=== PATIENT | female | born 1980 | race Caucasian/White ===

== ENCOUNTER 2023-04-09 09:48 | Outpatient (OUT) | payer OTHER, SELFPAY ==
[2023-04-09 10:10] LABS: Basophils Percent Auto 0.5 % (0.2-2.0); Eosinophils Absolute Auto 0.1 10^3/uL (0.0-0.7); Eosinophils Percent Auto 1.3 % (0.9-7.0); Hematocrit 40.9 % (36.0-48.0); Hemoglobin 13.4 g/dL (12.0-16.0); Lymphocytes Absolute Auto 1.1 10^3/uL (1.2-3.8); Mean Corpuscular HGB Conc 32.8 g/dL (29.9-35.2); Mean Corpuscular Volume 91.7 fL (81.0-99.0); Mean Platelet Volume 9.8 fL (9.5-13.5); Monocytes Absolute Auto 0.3 10^3/uL (0.3-0.8); Monocytes Percent Auto 6.6 % (1.7-12.0); Neutrophils Absolute Auto 2.3 10^3/uL (1.4-6.5); Neutrophils Percent Auto 61.6 % (43.0-75.0); Platelet Count 225 10^3/uL (150-450); Red Blood Count 4.46 10^6/uL (4.20-5.40); Red Cell Distribution Width 11.9 % (11.0-15.0); White Blood Count 3.8 10^3/uL (4.0-11.0)
[2023-04-09 10:27] LABS: Erythrocyte Sedimentation Rate 16 mm/hr (<=20)
[2023-04-09 10:41] LABS: Percent Iron Saturation 26.2 %
[2023-04-09 10:50] LABS: Alanine Aminotransferase 23 U/L (14-59); Albumin Globulin Ratio 12.3; Albumin Level 3.7 g/dL (3.4-5.0); Alkaline Phosphatase 40 U/L (46-116); Anion Gap 14.3; Aspartate Amino Transferase 20 U/L (15-37); BUN Creatinine Ratio 12.2; Bilirubin Total 0.4 mg/dL (0.2-1.0); Calcium 8.8 mg/dL (8.5-10.1); Carbon Dioxide 26.7 mmol/L (21.0-32.0); Chloride 104 mmol/L (98-107); Chol HDL Ratio 3.4; Cholesterol 197 mg/dL (<=200); Estimated GFR (African America >60 (>=60); Estimated GFR (Non-African Ame >60 (>=60); Globulin 0.3 g/dL; Glucose 87 mg/dL (74-106); HDL Cholesterol 58 mg/dL (40-60); LDL Cholesterol Calculated 131.2 mg/dL; Sodium 141 mmol/L (136-145); TSH W/ REFLEX FT4 0.203 (0.358-3.740); Triglycerides 39 mg/dL (<=150); Uric Acid 3.7 mg/dL (2.6-6.0); VLDL CHOLESTEROL 7.8 mg/dL
[2023-04-09 12:04] LABS: C Reactive Protein <0.50 mg/dL (<=0.50)
[2023-04-09 12:10] LABS: Free T4 1.16 ng/dL (0.76-1.46)
[2023-04-10 06:08] LABS: Antistreptolysin O Ab 213.7 IU/mL (0.0-200.0); Rheumatoid Factor (RF) <10.0 IU/mL (<14.0)
[2023-04-10 12:08] LABS: Anti-CCP Ab, IgG/IgA 7 units (0-19)
[2023-04-10 13:07] LABS: Antinuclear Antibodies, IFA Negative (.)
== END 2023-04-09 09:49 | disposition home or self-care (01) ==
LOC: LAB 09:49
PROVIDERS: PCP Nurse Practitioner Family; Visit Provider Nurse Practitioner Family
DX: E03.9 Hypothyroidism, unspecified (principal); R53.82 Chronic fatigue, unspecified; M25.50 Pain in unspecified joint; R06.02 Shortness of breath; Z13.220 Encounter for screening for lipoid disorders; R00.2 Palpitations; R42 Dizziness and giddiness
CPT/HCPCS: 36415; 80053; 80061; 82306; 83540; 83550; 84439; 84443; 84550; 85025; 85652; 86038; 86060; 86140; 86200; 86430; 86431

== ENCOUNTER 2023-06-11 16:30 | Outpatient (OUT) | payer OTHER, SELFPAY ==
--- OUTSIDE RECORDS SUMMARY | 2023-06-11 16:54 | XMS_ITS | CCD ---
Author Name Unknown Address [address] [facility] [address] [place] [address] Organization [facility] Care Team Providers Care Stationary Engineer Apprentice Name Role Phone House DO, Sr Simeon Casas Primary Care Provider [phone] Unavailable Primary Care Physician Unavailab le House DO, Sr Simeon Casas Primary Care Provider [phone] Wong Cade Primary Care Physician Unavai lable [place] DO, Sr Simeon Casas Primary Care Provider [phone] ROWENA WEI Referring Unavailabl e HOUSE, SR SIMEON Casas Primary Care Unavailable JAQUI OSUNA Attending Unavail able JAQUI OSUNA Admitting Unavail able HOUSE, SR SIMEON Casas Primary Care Unavailable WONG CADE Referring Unavailable HOUSE, SR SIMEON Casas Primary Care Unavailable ROWENA WEI Referring Unavailabl e HOUSE, SR SIMEON Casas Primary Care Unavailable Tammie Hawk Unavailable Smiley Lopez Unavailable Allergies Allergy Classification Reported Allergen(s) Allergy Type Date of Onset Reaction(s) Facility Penicillins (antibiotic) (7 sources) Penicillins Drug Allergy 1 [facility] (2 sources) Penicillins Propensity to adverse reactions to drug 1 [facility] (3 sources) Penicillin G Drug Allergy throat swelling [employer] Other Medications Current Medications Medication Drug Class(es) Dates Sig (Normalized) Sig (Original) acetaminophen 325 mg / oxyCODONE hydrochloride 5 mg oral tablet (1 source) Opioid Agonist Start: 11-12-2021 End: 11-15-2021 oxyCODONE-acetamin ophen (PERCOCET) 5-325 MG per tablet Indications: Post-op pain Take 1 tablet by mouth every 6 hours as needed for Pain for up to 3 days. Intended supply: 3 days. Take lowest dose possible to manage pain 12 tablet 0 11/12/2021 11/15/2021 Active calcium chloride 0.0014 meq/ml / potassium chloride 0.004 meq/ml / sodium chloride 0.103 meq/ml / sodium lactate 0.028 meq/ml injectable solution (1 source) Start: 11-12-2021 lactated ringers infusion ketorolac tromethamine 10 mg oral tablet (1 source) Nonsteroidal Anti-inflammatory Drug, Cyclooxygenase Inhibitor Start: 11-12-2021 End: 11-12-2022 take 1 tablet by mouth every six hours as needed for pain ketorolac (TORADOL) 10 MG tablet Take 1 tablet by mouth every 6 hours as needed for Pain 20 tablet 0 11/12/2021 11/12/2022 Active levothyroxine sodium 0.125 mg oral tablet (13 sources) l-Thyroxine Start: 11-21-2020 take 1 tablet by mouth once daily levothyroxine (SYNTHROID) 125 MCG tablet Indications: Hypothyroidism, unspecified type Take 1 tablet by mouth daily 90 tablet 0 06/05/2021 Active Start: 09-04-2020 levothyroxine 175 mcg capsule 09/04/2020 take 6/wk skip Sun with water only on empty stomach, no other foods,drinks,or meds for 2hr before or after CONCEPCIÓN-1 MYLAN BRAND Start: 07-17-2020 take 1 tablet by moncho th once daily levothyroxine (SYNTHROID) 175 MCG tablet TAKE 1 TABLET BY MOUTH EVERY DAY 0 07/17/2020 Active take 1 tablet by moncho th once daily in the morning Levothyroxine Sodium 100 MCG 1 tablet in the morning on an empty stomach Orally Once a day for 90 days Active Levothyroxine So dium Active take 1 capsule by mo [facility] once daily levothyroxine 175 mcg capsule take 1 capsule (175 mcg) by oral route once daily medroxyPROGESTERone acetate 5 mg oral tablet (2 sources) Progestin Start: 08-29-2020 take 16-25 tablets by mouth once daily medroxyPROGESTERone (PROVERA) 5 MG tablet Indications: Irregular menses Take 1 tablet by mouth daily Days 16-25 of each cycle 10 tablet 12 08/29/2020 Active 2 ml ondansetron 2 mg/ml injection (1 source) Serotonin-3 Receptor Antagonist Start: 11-12-2021 ondansetron (ZOFRAN) injection 4 mg 5 ml sodium chloride 9 mg/ml injection (6 sources) Start: 11-12-2021 take 1 dose intravenously twice daily 5-40 mL, IntraVENous, EVERY 12 HOURS SCHEDULED (2 times per day), First dose on Fri11/12/21 at 2100, Until Discontinued For Line Patency: Peripheral IV = 5 mL; Midline or Central Line = 10 mL/lumen. &n bsp;If following IV push medication, administer flush at same rate as the IV push. Flush volume is determined by type of infusion therapy being given. For non-viscous solutions use: Peripheral IV = 5 mL Midline or Central Line = 10 mL/lumen F or viscous solutions (i.e. blood components, parenteral nutrition, contrast media, or after obtaining blood sample) use: Peripheral IV = 10 mL Midline or Central Line = 20 mL/lumen PACU only Start: 11-12-2021 IntraVENous, a t 5-250 mL/hr, PRN, if patient receiving piggyback infusions and maintenance fluids are not ordered OR KVO fluids to protect IV site / prevent frequent line interruptions/ long duration, Starting on Fri11/12/21 at 1331 For piggyback infusion, administer at same rate as piggyback for a total of 25 mL. Enter 25 mL into dose field and piggyback rate into rate field of order. If piggyback is infusing at a rate less than 100 mL/hr, enter 25 mL into dose field and 100 mL/hr into rate field of order. For KVO fluids, enter rate of 20 mL/hr or less into rate field of order. PACU only Start: 11-12-2021 take 5-40 mL intrave nously once as needed 5-40 mL, IntraVENous, PRN, Starting on Fri11/12/21 at 1331, Until Discontinued, Line Care, After every IV line use For Line Patency: Peripheral IV = 5 mL; Midline or Central Line = 10 mL/lumen. If following IV push medication, administer flush at same rate as the IV push. Flush volume is determined by type of infusion therapy being given. For non-viscous solutions use: Peripheral IV = 5 mL Midline or Central Line = 10 mL/lumen For viscous solutions (i.e. blood components, parenteral nutrition, contrast media, or after obtaining blood sample) use: Peripheral IV = 10 mL Midline or Central Line = 20 mL/lumen PACU only Start: 11-12-2021 0.9 % sodium c hloride infusion Start: 11-12-2021 sodium chlorid e flush 0.9 % injection 5-40 mL Completed/Discontinued Medications Medication Drug Class(es) Dates Sig (Normalized) Sig (Original) acetaminophen 325 mg oral tablet (1 source) Start: 11-12-2021 End: 11-12-2021 acetaminophen (TYLENOL) tablet 650 mg acetaminophen 325 mg / HYDROcodone bitartrate 5 mg oral tablet (2 sources) Opioid Agonist Start: 11-12-2021 End: 11-12-2021 HYDROcodone-acetamin ophen (NORCO) 5-325 MG per tablet 2 tablet Start: 11-12-2021 End: 11-12-2021 HYDROcodone-acetaminophen (N ORCO) 5-325 MG per tablet Indications: Post-op pain Take 1 tablet by mouth every 6 hours as needed for Pain for up to 5 days. Intended supply: 5 days. Take lowest dose possible to manage pain 10 tablet 0 11/12/2021 11/12/2021 Discontinued (Stop Taking at Discharge) ceFAZolin (ANCEF) 2000 mg in dextrose 5 % 100 mL IVPB (1 source) Start: 11-12-2021 End: 11-12-2021 ceFAZolin (ANCEF) 2000 mg in dextrose 5 % 100 mL IVPB dimenhyDRINATE 50 mg oral tablet (1 source) Start: 11-12-2021 End: 11-12-2021 dimenhyDRINATE (DRAMAMINE) tablet 50 mg drospirenone 4 mg oral tablet (2 sources) Progestin Start: 11-29-2020 End: 11-12-2021 take 1 tablet by mouth once daily Drospirenone (SLYND) 4 MG TABS Indications: Menorrhagia with irregular cycle Take 1 tablet by mouth daily 84 tablet 3 11/29/2020 11/12/2021 Discontinued (Stop Taking at Discharge) 0.4 ml enoxaparin sodium 100 mg/ml prefilled syringe (1 source) Low Molecular Weight Heparin Start: 11-12-2021 End: 11-12-2021 enoxaparin (LOVENOX) injection 40 mg 2 ml fentaNYL 0.05 mg/ml injection (1 source) Opioid Agonist Start: 11-12-2021 End: 11-12-2021 50 mcg, IntraVENous, EVERY 5 MIN PRN, 2 doses, Starting on Fri11/12/21 at 1331, Until Discontinued, Pain Moderate (4-6), Pain Severe (7-10) For Phase I. If Phase II oral narcotics have been administered in the last 60 minutes, do not administer IV narcotics unless specifically approved by provider. PACU only oxyCODONE hydrochloride 5 mg oral tablet (1 source) Opioid Agonist Start: 11-12-2021 End: 11-12-2021 oxyCODONE (ROXICODONE) immediate release tablet 5 mg phenazopyridine hydrochloride 100 mg oral tablet (1 source) Start: 11-12-2021 End: 11-12-2021 phenazopyridine (PYRIDIUM) tablet 200 mg Start: 11-12-2021 End: 11-12-2021 phenazopyridine (PYRIDIUM) t ablet 200 mg Problems Active Problems Problem Classification Problem Date Documented Date Episodic/Chronic Cardiac dysrhythmias (1 source) Palpitations Episodic Conditions associated with dizziness or vertigo (1 source) Dizziness and giddiness Episodic Malaise and fatigue (3 sources) Fatigue; Translations: [Chronic fatigue, unspecified] Chronic Menstrual disorders (3 sources) Irregular periods; Translations: [Irregular menstruation, unspecified] Chronic Mood disorders (2 sources) Major depressive affective disorder, single episode, unspecified Chronic Other female genital disorders (1 source) Pelvic congestion syndrome; Translations: [Other specified conditions associated with female genital organs and menstrual cycle] Episodic Other lower respiratory disease (1 source) Shortness of breath Episodic Other nervous system disorders (2 sources) Postoperative pain ; Translations: [Other acute postprocedural pain] Onset: 11-12-2021 Episodic Other non-traumatic joint disorders (1 source) Pain in unspecified joint Episodic Other screening for suspected conditions (not mental disorders or infectious disease) (4 sources) Other specified abnormal findings of blood chemistry; Translations: [Encounter for screening for lipoid disorders] Onset: 08-16-2020 Episodic Ovarian cyst (1 source) Complex cyst of left ovary; Translations: [Other ovarian cyst, left side] Episodic Residual codes; unclassified (1 source) Family history of diseases of the skin and subcutaneous tissue Episodic Thyroid disorders (16 sources) Hyperthyroidism; Translations: [Thyrotoxicosis without mention of goiter or other cause, and without mention of thyrotoxic crisis or storm] Onset: 08-29-2020 08-29-2020 Chronic Thyroid disorders (4 sources) Disorder of thyroid gland; Translations: [Disorder of thyroid, unspecified] Onset: 08-16-2020 Episodic Past or Other Problems Problem Classification Problem Date Documented Da te Episodic/Chronic Unclassified (1 source) Cough R05.9 Viral infection (1 source) COVID-19 Results Test Name Value Interpretation Reference Range Facility Quick Strep[facility] 03-21-2022 S. pyogenes Org specific cx Ql (Throat) Negative [employer] Other Quick Strep [employer] Other SARS-CoV-2 (COVID-19) RNA NA A+probe Ql (Resp)on 03-21-2022 SARS-CoV-2 (COVID-19) RNA ANDREA+probe Ql (Unsp spec) Positive [employer] Other HCG, ,Urineon 11-12 Beta HCG ( test) Ql (U) Negative Normal NEG [facility] Comment on above: Result Comment: Spec imens with hCG levels near the threshold of the test (25 mIU/mL) may give a negative or indeterminate result. In such cases, another test should be performed with a new specimen in 48-72 hours. If early is suspected clinically in this setting, correlation with quantitative serum b-hCG level is suggested. [facility] use [facility] for this test. This has not been cleared or approved by the U.S. Food and Drug Administration. The FDA has determined that such clearance is not necessary. Performed By: #### U HCG #### [facility] [address] [place], [place] [id number] Green Building Design Specialist: Imtiaz Monet MD Hemoglobin and Hematocriton 11-12-2021 Hematocrit (Bld) [Volume fraction] 37.6 % 36.3 - 47.1 % [facility] Hemoglobin (Bld) [Mass/Vol] 12.5 g/dL 11.9 - 15.1 g/dL [facility] Hgb/Hcton 11-12-2021 Hematocrit (Bld) [Volume fraction] 37.6 % Normal 36.3-47.1 [facility] Comment on above: Performed By: #### H H #### [facility] [address] [place], [place] [id number] Green Building Design Specialist: Imtiaz Monet MD Hemoglobin (Bld) [Mass/Vol] 12.5 g/dL Normal 11.9-15.1 [facility] Comment on above: Performed By: #### H H #### [facility] [address] [place], [place] [id number] Green Building Design Specialist: Imtiaz Monet MD , Urineon 2 Beta HCG ( test) Ql (U) Negative NEGATIVE [facility] Comment on above: Specimens with hCG l evels near the threshold of the test (25 mIU/mL) may give a negative or indeterminate result. In such cases, another test should be performed with a new specimen in 48-72 hours. If early is suspected clinically in this setting, correlation with quantitative serum b-hCG level is suggested. [facility] use of plasma for this test. This has not been cleared or approved by the U.S. Food and Drug Administration. The FDA has determined that such clearance is not necessary. [facility] Surgical Pathologyon 022 Surgical Pathology (NOTE) -- Diagnosis -- UTERUS, CERVIX, BILATERAL FALLOPIAN TUBES, HYSTERECTOMY AND BILATERAL SALPINGECTOMY: -ADENOMYOSIS. -WEAKLY PROLIFERATIVE ENDOMETRIUM. -BENIGN CERVIX. -BENIGN RIGHT AND LEFT FALLOPIAN TUBES WITH SMALL BENIGN PARATUBAL CYST OF RIGHT FALLOPIAN TUBE. Imtiaz Monet M.D. Electronically Signed Out 11/14/2021 Clinical Information Pre-op Diagnosis: PELVIC CONGESTION SYNDROME, MENORRHAGIA, DYSMENORRHEA Operative Findings: CERVIX, UTERUS, BILATERAL FALLOPIAN TUBES Operation Performed: HYSTERECTOMY VAGINAL LAPAROSCOPIC ROBOTIC ASSISTED, POSSIBLE, BSO, POSSIBLE LAP COLPOPEXY Source of Specimen A: CERVIX, UTERUS, BILATERAL FALLOPIAN TUBES Gross Description CRISTELA SANCHEZ, CERVIX, UTERUS, BILATERAL FALLOPIAN TUBES 138.2 gram uterus and cervix (10.0 cm cervix-fundus x 6.0 cm cornu-cornu x 4.5 cm anterior-posterior ) with attached bilateral fimbriated fallopian tubes (left: 6.5 cm in length x 0.7 cm in diameter, right: 6.0 cm in length x 0.9 cm in diameter). Uterine serosa is woody-pink, hyperemic and smooth with thin fibrous adhesions at the fundus (anterior = blue and posterior = black). There is a 3.0 x 2.9 cm woody, lobulated ectocervix that surrounds a 1.8 cm slit-like os. The specimen is bivalved to reveal a 4.5 x 3.0 cm endometrial cavity. The cavity is lined by a woody-pink, slightly hyperemic and flat mucosa that averages 0.1 cm in thickness. The myometrium is woody-pink and rubbery. The cervix is lined by a woody-pink, corrugated mucosa. Sectioning of the cervix reveals woody, rubbery cut surfaces with multiple nabothian cysts. These cysts measure up to 0.4 cm and contain clear to cloudy mucoid material. Sectioning of the fallopian tubes reveals unremarkable appearing cut surfaces. Hedge Trimmer sections 11c as follows: 1 anterior endomyometrium, 2 posteror endomyometrium, 3 sales representative girls[employer] apparel sections of markedly vascularized myometrium, 4 anterior cervix, 5 posterior cervix, 6-8 [employer] left fallopian tube, 9-11 [employer] right fallopian tube. tm Microscopic Description Microscopic examination performed. SURGICAL PATHOLOGY CONSULTATION Patient Name: CRISTELA SANCHEZ [facility] Rec: [id number] Path Number: [id number] [facility] [employer] CONSULTING PATHOLOGISTS [facility] ANATOMIC PATHOLOGY [address] [place] [address]. [place], [place] [address] [facility] Comment on above: Performed By: #### P PPVS #### [facility] [address] [place] [address] Green Building Design Specialist: Uri Rangel MD US PELVIS COMPLETE NON-OB TR ANSABDOMINAL AND TRANSVAGINALon 07-03-2021 US PELVIS COMPLETE NON-OB TRANSABDOMINAL AND TRANSVAGINAL EXAMINATION: TRANSABDOMINAL AND TRANSVAGINAL PELVIC ULTRASOUND 07/03/2021 TECHNIQUE: Transabdominal and transvaginal pelvic ultrasound was performed. COMPARISON: Pelvic ultrasound November 29, 2020. HISTORY: ORDERING SYSTEM PROVIDED HISTORY: Pelvic congestion FINDINGS: Measurements: Uterus: 8.1 x 5.3 x 4.1 cm Endometrial stripe: 3 mm Right Ovary:Not measured. Left Ovary: Not measured. Ultrasound Findings: Uterus: Uterus demonstrates normal myometrial echotexture. Endometrial stripe: Endometrial stripe is within normal limits. Right Ovary: Not visualized. No adnexal mass. Left Ovary: Not visualized. No adnexal mass. Free Fluid: No evidence of free fluid. IMPRESSION: Unremarkable uterus and endometrium. Ovaries not visualized. RECOMMENDATIONS: Unavailable Interpreted by: Chai Hendrickson Jr., DO Signed by: Chai Hendrickson Jr., DO 07/03/21 Final result Normal [facility] Thyroxine T4on 12-06-2020 T4 [Mass/Vol] 6.9 ug/dL Normal 4.5-10.[address] [facility] Comment on above: Performed By: #### T 4 #### [address] [address] [place] [address] Green Building Design Specialist: Uri Rangel MD #### TSH #### [facility] [address] [place] [address] [employer] Building [employer] Specialist: Imtiaz Monet MD [id number] By: Wong cortez on 12-05-2020 T4 [Mass/Vol] 6.9 ug/dL 4.5 - 10.9 ug/dL [facility] [employer] Phone: [employer] Phone: TSH without ReflexOrdered By : Wong Cade on 12-05-2020 Interpretation and review of laboratory results Abnormal [employer] Phone: TSH Qn 0.12 m[IU]/L Low [facility] Phone: [facility] [employer] Phone: Thyroid Stim. Horm.on 2020 TSH Qn 0.12 m[IU]/L Low 0.30-5.00 [facility] Comment on above: Performed By: #### T 4 #### [facility] [address] [place] [address] [employer] Building [employer] Specialist: Uri Rangel MD #### TSH #### [facility] [address] [place] [address] [employer] Building Design Specialist: Imtiaz Monet MD NON OB TRANSVAGINALon US NON OB TRANSVAGINAL UTERUS:anteverted , homogeneous echo pattern ? ENDO:1.1cm in thickness ? RT. OVARY:seen, wnl ? LT. OVARY:seen, wnl ? Prominent vessels in both adnexal regions with increase in vascularity, ? Vaginal congestion ? Small amount of free fluid visualized in posterior cul-de-sac Interpreted by: Rowena Wei APRN - MARTIN Arango DO Signed by: Jaqui Arango DO 11/30/20 Final result Normal [facility] [id number] By: Wong cortez on 10-05-2020 T4 [Mass/Vol] 8.6 ug/dL 4.5 - 10.9 ug/dL [facility] Phone: [facility] [employer] Phone: TSH without ReflexOrdered By : Wong Cade on 10-05-2020 Interpretation and review of laboratory results Abnormal [facility] Phone: TSH Qn 0.01 m[IU]/L Low [facility] Phone: [facility] [employer] Phone: ALTOrdered By: Wong mccord on 08-25-2020 ALT [Catalytic activity/Vol] 12 U/L 5 - 33 U/L [employer] Phone: CA 125Ordered By: Rowena Fiore h on 08-25-2020 CA 125 15 U/mL <38 [employer] Phone: CBCOrdered By: Wong Quigley er on 08-25-2020 Hematocrit (Bld) [Volume fraction] 37.7 % 36.3 - 47.1 % [employer] Phone: Hemoglobin.gastrointest inal spec 1 Ql (Stl) 11.8 g/dL Low 11.9 - 15.1 g/dL [employer] Phone: Interpretation and review of laboratory results Abnormal [employer] Phone: MCH (RBC) [Entitic mass] 27.3 pg 25.2 - 33.5 pg [employer] Phone: MCHC (RBC) [Mass/Vol] 31.3 g/dL 28.4 - 34.8 g/dL [employer] Phone: MCV (RBC) [Entitic vol] 87.3 fL 82.6 - 102.9 fL [employer] Phone: NRBC Automated 0.0 0.0 per 100 WBC [employer] Phone: Platelet distribution width (Bld) [Ratio] 13.1 % 11.8 - 14.4 % [employer] Phone: Platelet mean volume (Bld) [Entitic vol] 9.5 fL 8.1 - 13.5 fL [employer] Phone: Platelets (Bld) [#/Vol] 260 10*3/uL [employer] Phone: RBC (Bld) [#/Vol] 4.32 10*6/uL 3.95 - 5.1 1 m/uL [employer] Phone: WBC (Bld) [#/Vol] 6.9 10*3/uL [employer] Phone: CEAOrdered By: Rowena elder 08-25-2020 CEA 1.3 ng/mL <3.9 [employer] Work Phone: Comment on above: The [place] ECLIA as say is used. Results obtained with different assay methods cannot be used interchangeably. Laboratory - Chemistry and C hemistry - challengeOrdered By: Wong Cade on 08-25-2020 T4 [Mass/Vol] 7.1 ug/dL Invalid Interpretation Code [employer] Work Phone: Laboratory - Chemistry and C hemistry - challengeon 08-25-2020 ALT [Catalytic activity/Vol] 12.0 U/L Invalid Interpretation Code [facility] T3 [Mass/Vol] 75.0 ng/dL Invalid Interpretation Code [facility] TSH Qn <0.01 L Invalid Interpretation Code [facility] Laboratory - Hematology and Cell countson 08-25-2020 Erythrocyte distribution width (RBC) [Ratio] 13.10 % Invalid Interpretation Code [facility] ESR (Bld) [Velocity] 18.0 mm/h Invalid Interpretation Code [facility] Hematocrit (Bld) [Volume fraction] 37.70 % Invalid Interpretation Code [facility] Hemoglobin (Bld) [Mass/Vol] 11.80 g/dL Invalid Interpretation Code [facility] MCH (RBC) [Entitic mass] 27.30 pg Invalid Interpretation Code [facility] MCHC (RBC) [Mass/Vol] 31.30 g/dL Invalid Interpretation Code [facility] MCV (RBC) [Entitic vol] 87.30 fL Invalid Interpretation Code [facility] Platelets (Bld) [#/Vol] 260.0 10*3/uL Invalid Interpretation Code [facility] RBC (Bld) [#/Vol] 4.320 10*6/uL Invalid Interpretation Code [facility] WBC (Bld) [#/Vol] 6.90 10*3/uL Invalid Interpretation Code [facility] No Panel Informationon 08-25 ks Invalid Interpretation Code [facility] 0.30 IU/L Invalid Interpretation Code 0 - 0.55 [facility] Sedimentation RateOrdered By : Wong Cade on 08-25-2020 Sed Rate 18 mm 0 - 20 mm [employer] Phone: [id number] By: Wong cortez on 08-25-2020 T3, Total 75 ng/dL 60 - 181 ng/dL [employer] Phone: TSH without ReflexOrdered By : Wong Cade on 08-25-2020 Interpretation and review of laboratory results Abnormal [employer] Phone: TSH Qn m[IU]/L Low [employer] Phone: US NON OB TRANSVAGINALOrdere d By: Rowena Wei on 08-24-2020 1. Complex indeterminate cystic structure in the left ovary measuring up to 2.7 cm which could represent a hemorrhagic cyst. Follow-up pelvic ultrasound recommended in 6-12 weeks. If unchanged, continue follow-up with ultrasound or consider contrast-enhanced pelvic MRI. If these do not confirm endometrioma or dermoid, consider surgical evaluation/gynecol ogical surgical consultation. 2. Normal appearance of the right ovary. 3. Endometrial stripe thickness measuring 1.2 cm, within normal limits. 4. Anteroflexed uterus. The findings were sent to the Radiology Results Communication Center at 1:55 pm on 08/24/2020to be communicated to a licensed caregiver. [employer] Phone: EXAMINATION: PELVIC ULTRASOUND 08/24/2020 TECHNIQUE: Transvaginal pelvic ultrasound was performed. Color Doppler evaluation was performed. COMPARISON: None HISTORY: ORDERING SYSTEM PROVIDED HISTORY: Irregular menses 39-year-old female with irregular menses FINDINGS: Measurements: Uterus: 9.1 x 6.5 x 5.0 cm. Endometrial stripe: 1.2 cm. Right Ovary: 2.2 x 1.4 x 1.6 cm. Left Ovary: 3.0 x 2.8 x 3.0 cm. Ultrasound Findings: Patient's LMP is 07/21/2020. Uterus: Heterogeneous echogenicity of the uterus. Uterus is anterior flexed. No uterine mass or fibroid. Endometrial stripe: Endometrial stripe is within normal limits. Right Ovary: Right ovary is within normal limits. Left Ovary: Complex cystic structure in the left ovary with internal echoes measuring 2.5 x 2.6 x 2.7 cm. Color flow projects over the periphery of the left ovary. Free Fluid: No evidence of free fluid. [employer] Phone: [facility] Incoming Rad[facility] Results From [employer] - 08/24/2020 1:58 PM EDT EXAMINATION: PELVIC ULTRASOUND 08/24/2020 TECHNIQUE: Transvaginal pelvic ultrasound was performed. Color Doppler evaluation was performed. COMPARISON: None HISTORY: ORDERING SYSTEM PROVIDED HISTORY: Irregular menses 39-year-old female with irregular menses FINDINGS: Measurements: Uterus: 9.1 x 6.5 x 5.0 cm. Endometrial stripe: 1.2 cm. Right Ovary: 2.2 x 1.4 x 1.6 cm. Left Ovary: 3.0 x 2.8 x 3.0 cm. Ultrasound Findings: Patient's LMP is 07/21/2020. Uterus: Heterogeneous echogenicity of the uterus. Uterus is anterior flexed. No uterine mass or fibroid. Endometrial stripe: Endometrial stripe is within normal limits. Right Ovary: Right ovary is within normal limits. Left Ovary: Complex cystic structure in the left ovary with internal echoes measuring 2.5 x 2.6 x 2.7 cm. Color flow projects over the periphery of the left ovary. Free Fluid: No evidence of free fluid. IMPRESSION: 1. Complex indeterminate cystic structure in the left ovary measuring up to 2.7 cm which could represent a hemorrhagic cyst. Follow-up pelvic ultrasound recommended in 6-12 weeks. If unchanged, continue follow-up with ultrasound or consider contrast-enhanced pelvic MRI. If these do not confirm endometrioma or dermoid, consider surgical evaluation/gynecol ogical surgical consultation. 2. Normal appearance of the right ovary. 3. Endometrial stripe thickness measuring 1.2 cm, within normal limits. 4. Anteroflexed uterus. The findings were sent to the [facility] at 1:55 pm on 08/24/2020to be communicated to a licensed caregiver. [facility] Phone: [facility] Phone: TSH without ReflexOrdered By : Rowena Wei on 08-10-2020 Interpretation and review of laboratory results Abnormal [employer] Phone: TSH Qn 0.02 m[IU]/L Low [employer] Phone: Vital Signs Date Time Vital Sign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 injection 40 mg (COMPLETED) 40 mg, SubCUTAneous, ONCE, 1 dose, On Fri11/12/21 at 1015, Indication of Use: Prophylaxis-DVT/PE, Pre-op (day of surgery) 1109 (Given - Provid er: Steffanie Zayas RN) HYDROcodone-acetaminophen (NORCO) 5-325 MG per tablet 2 tablet (COMPLETED) 2 tablet, Oral, ONCE, 1 dose, On Fri11/12/21 at 1500, Maximum dose of acetaminophen is 4000 mg from all sources in 24 hours., PACU & Post-op 1444 (Given - Provid er: Mariela Stringer RN) phenazopyridine (PYRIDIUM) tablet 200 mg (COMPLETED) 200 mg, Oral, ONCE, 1 dose, On Fri11/12/21 at 1500, Take with food. May cause discoloration of urine. 1445 (Given - Provid er: Mariela Stringer RN) sodium chloride flush 0.9 % injection 5-40 mL 5-40 mL, IntraVENous, EVERY 12 HOURS SCHEDULED (2 times per day), First dose on Fri11/12/21 at 1015, Until Discontinued, For Line Patency: Peripheral IV = 5 mL; Midline or Central Line = 10 mL/lumen. If following IV push medication, administer flush at same rate as the IV push. Flush volume is determined by type of infusion therapy being given. For non-viscous solutions use: Peripheral IV = 5 mL Midline or Central Line = 10 mL/lumen For viscous solutions (i.e. blood components, parenteral nutrition, contrast media, or after obtaining blood sample) use: Peripheral IV = 10 mL Midline or Central Line = 20 mL/lumen 1015 (Due)2100 (Due) sodium chloride flush 0.9 % injection 5-40 mL 5-40 mL, IntraVENous, EVERY 12 HOURS SCHEDULED (2 times per day), First dose on Fri11/12/21 at 2100, Until Discontinued, For Line Patency: Peripheral IV = 5 mL; Midline or Central Line = 10 mL/lumen. If following IV push medication, administer flush at same rate as the IV push. Flush volume is determined by type of infusion therapy being given. For non-viscous solutions use: Peripheral IV = 5 mL Midline or Central Line = 10 mL/lumen For viscous solutions (i.e. blood components, parenteral nutrition, contrast media, or after obtaining blood sample) use: Peripheral IV = 10 mL Midline or Central Line = 20 mL/lumen, PACU only 2100 (Due) Continuous Medication Order 11/10/2021 11/11/2021 11/12/2021 lactated ringers infusion IntraVENous, at 100 mL/hr, CONTINUOUS, Starting on Fri11/12/21 at 1015, Pre-op (day of surgery) 1016 (New Bag - Prov ider: Karin Byrd RN)1145 (NoRateChange - Provider: NEVA Sanchez CRNA)1219 (New Bag - Provider: NEVA Sanchez CRNA)1329 (Anesthesia Volume Adjustment - Provider: NEVA Sanchez CRNA)1720 (Stopped - Provider: Tonja Rico RN) PRN Medication Order 11/10/2021 11/11/2021 11/12/2021 0.9 % sodium chloride infusion IntraVENous, at 5-250 mL/hr, PRN, if patient receiving piggyback infusions and maintenance fluids are not ordered OR KVO fluids to protect IV site / prevent frequent line interruptions/ long duration, Starting on Fri11/12/21 at 0946, For piggyback infusion, administer at same rate as piggyback for a total of 25 mL. Enter 25 mL into dose field and piggyback rate into rate field of order. If piggyback is infusing at a rate less than 100 mL/hr, enter 25 mL into dose field and 100 mL/hr into rate field of order. For KVO fluids, enter rate of 20 mL/hr or less into rate field of order. 0.9 % sodium chloride infusion IntraVENous, at 5-250 mL/hr, PRN, if patient receiving piggyback infusions and maintenance fluids are not ordered OR KVO fluids to protect IV site / prevent frequent line interruptions/ long duration, Starting on Fri11/12/21 at 1331, For piggyback infusion, administer at same rate as piggyback for a total of 25 mL. Enter 25 mL into dose field and piggyback rate into rate field of order. If piggyback is infusing at a rate less than 100 mL/hr, enter 25 mL into dose field and 100 mL/hr into rate field of order. For KVO fluids, enter rate of 20 mL/hr or less into rate field of order., PACU only fentaNYL (SUBLIMAZE) injection 50 mcg (COMPLETED) 50 mcg, IntraVENous, EVERY 5 MIN PRN, 2 doses, Starting on Fri11/12/21 at 1331, Until Discontinued, Pain Moderate (4-6), Pain Severe (7-10), For Phase I. If Phase II oral narcotics have been administered in the last 60 minutes, do not administer IV narcotics unless specifically approved by provider., PACU only 1349 (Given - Provid er: Mariela Stringer RN)1402 (Given - Provider: Mariela Stringer RN) ondansetron (ZOFRAN) injection 4 mg 4 mg, IntraVENous, EVERY 6 HOURS PRN, Starting on Fri11/12/21 at 1344, Until Discontinued, Nausea, Vomiting 1353 (Given - Provid er: Mariela Stringer RN) opium-belladonna (B&O SUPPRETTES) 16.2-60 MG suppository (CANCELED) mg dosing is based on opium component, PRN, Starting on Fri11/12/21 at 1204, Until Fri11/12/21 at 1327, Intra-op 1204 (Given - Provid er: Ewa Wei RN) oxyCODONE (ROXICODONE) immediate release tablet 5 mg (COMPLETED) 5 mg, Oral, ONCE PRN, 1 dose, Starting on Fri11/12/21 at 1615, Until Fri11/12/21 at 1621, Pain Moderate (4-6), Pain Severe (7-10) 1621 (Given - Provid er: Tonja Rico RN) sodium chloride flush 0.9 % injection 5-40 mL 5-40 mL, IntraVENous, PRN, Starting on Fri11/12/21 at 0946, Until Discontinued, Line Care, After every IV line use, For Line Patency: Peripheral IV = 5 mL; Midline or Central Line = 10 mL/lumen. If following IV push medication, administer flush at same rate as the IV push. Flush volume is determined by type of infusion therapy being given. For non-viscous solutions use: Peripheral IV = 5 mL Midline or Central Line = 10 mL/lumen For viscous solutions (i.e. blood components, parenteral nutrition, contrast media, or after obtaining blood sample) use: Peripheral IV = 10 mL Midline or Central Line = 20 mL/lumen sodium chloride flush 0.9 % injection 5-40 mL 5-40 mL, IntraVENous, PRN, Starting on Fri11/12/21 at 1331, Until Discontinued, Line Care, After every IV line use, For Line Patency: Peripheral IV = 5 mL; Midline or Central Line = 10 mL/lumen. If following IV push medication, administer flush at same rate as the IV push. Flush volume is determined by type of infusion therapy being given. For non-viscous solutions use: Peripheral IV = 5 mL Midline or Central Line = 10 mL/lumen For viscous solutions (i.e. 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 This clinical summary was aggregated from multiple sources. Caution should be exercised in using it in the provision of clinical care. This summary normalizes information from multiple sources, and as a consequence, information in this document may materially change the coding, format and clinical context of patient data. In addition, data may be omitted in some cases. CLINICAL DECISIONS SHOULD BE BASED ON THE PRIMARY CLINICAL RECORDS. [facility]. provides no warranty or guarantee of the accuracy or completeness of information in this document.
[2023-06-11 17:20] LABS: TSH W/ REFLEX FT4 4.138 uIU/mL (0.358-3.740)
[2023-06-11 17:43] LABS: Free T4 0.98 ng/dL (0.76-1.46)
== END 2023-06-11 16:31 | disposition home or self-care (01) ==
PROVIDERS: PCP Nurse Practitioner Family; Visit Provider Nurse Practitioner Family
DX: E03.9 Hypothyroidism, unspecified (principal); Z20.5 Contact with and (suspected) exposure to viral hepatitis
CPT/HCPCS: 36415; 84439; 84443; 86317; 86704; 86706; 86708; 86709; 87340

== ENCOUNTER 2023-09-01 16:13 | Outpatient (OUT) | payer OTHER, SELFPAY ==
--- NOTE | 2023-09-01 16:21 | XR_ITS ---
The [address] [address] Patient Name: CRISTELA SANCHEZ MRN: [id number] date: 1980 Sex: F Assigned Patient Location: [facility] Current Patient Location: Accession/Order Number: [id number] Exam Date: 09/01/2023 16:24 Report Date: 09/02/2023 11:17 At the request of: AMANDEEP LEES Procedure: XR foot RT min 3V PROCEDURE: XR foot RT min 3V HISTORY: Right foot pain M79.671, Injury of right foot S99.921A COMPARISON: None. FINDINGS: BONES:Small corticated ossification at the dorsal proximal margin of navicular bone. Developmental or sequela of remote injury. No appreciable acute fracture or dislocation. SOFT TISSUES:No visible soft tissue swelling. EFFUSION:None visible. OTHER: Negative. XR/XR foot RT min 3V IMPRESSION: 1. No appreciable acute bone abnormality. Electronically authenticated by: NISHANT LIRA Date: 09/02/2023 11:17
--- OUTSIDE RECORDS SUMMARY | 2023-09-01 16:38 | XMS_ITS | CCD ---
Author Organization [facility] Partnership [facility] Care Team Providers Care Farebox Repairer Name Role Phone House DO, Sr Simeon Casas Primary Care Provider [phone] Unavailable Primary Care Physician Unavailab le House DO, Sr Simeon Casas Primary Care Provider [phone] Wong Cade Primary Care Physician Unavai lable Lemhi DO, Sr Simeon Casas Primary Care Provider [phone] ROWENA WEI Referring Unavailabl e HOUSE, SR SIMEON Casas Primary Care Unavailable JAQUI OSUNA Attending Unavail able JAQUI OSUNA Admitting Unavail able HOUSE, SR SIMEON Casas Primary Care Unavailable WONG CADE Referring Unavailable HOUSE, SR SIMEON Casas Primary Care Unavailable ROWENA WEI Referring Unavailabl e HOUSE, SR SIMEON Casas Primary Care Unavailable Tammie Hawk Unavailable Smiley Lopez Unavailable [phone] Jabari Carpenter Admitting Unavailable Jabari Carpenter Attending Unavailable Smiley Lopez Primary Care Unavailable Allergies Allergy Classification Reported Allergen(s) Allergy Type Date of Onset Reaction(s) Facility Penicillins (antibiotic) (7 sources) Penicillins Drug Allergy 1 [facility] (2 sources) Penicillins Propensity to adverse reactions to drug 1 [facility] (3 sources) Penicillin G Drug Allergy throat swelling [facility] Other (1 source) Penicillin Drug Allergy 3 [facility] Repository Medications Current Medications Medication Drug Class(es) Dates [...] dium Active take 1 capsule by mo uth once daily levothyroxine 175 mcg capsule take 1 capsule (175 mcg) by oral route once daily medroxyPROGESTERone acetate 5 mg oral tablet (2 sources) Progestin Start: 08-29-2020 take 16-25 tablets by mouth once daily medroxyPROGESTERone (PROVERA) 5 MG tablet Indications: Irregular menses Take 1 tablet by mouth daily Days 16- of each cycle 10 tablet 12 08/29/2020 [...] depressive affective disorder, single episode, unspecified Chronic Osteoarthritis (1 source) Unspecified osteoarthritis, unspecified site; Translations: [Unspecified osteoarthritis, unspecified site] Onset: 06-17-2023 Chronic Other female genital disorders (1 source) [...] Test Name Value Interpretation Reference Range Facility [facility] Antinuclear Antibodieson 06-17-2023 Antinuclear Abs, IFA Positive Critically abnormal . [facility] Comment on above: Result Comment: Nega tive <1:80 Borderline 1:80 Positive >1:80 Performed By: #### E SR, CBC, CRP, CK, CMP #### [facility] [address] [place] [address] [place] #### NEREYDA, ALDOLASE #### [facility] , Homogeneous Pattern 1:320 High . [facility] Comment on above: Result Comment: ICAP nomenclature: [id number] Performed By: #### E SR, CBC, CRP, CK, CMP #### [facility] [address] [place] [address] [place] #### NEREYDA, ALDOLASE #### [facility] , Note 1 Normal . [facility] Comment on above: Result Comment: Fatoumata elizabeth Potential Disease Association Homogeneous Systemic Lupus Erythematosus, Drug Induced Systemic Lupus Erythematosus, Chronic Autoimmune hepatitis, Juvenile Idiopathic Arthritis Speckled Sjogren Syndrome, Systemic Lupus Erythematosus, Subacute Cutaneous Lupus, Lupus, Congenital Heart Block, Mixed Connective Tissue Disease, Scleroderma-diffuse, Scleroderma-Autoimmune Myositis Overlap Syndrome, Systemic Lupus Ulmadvsjmqdyt-Ldciwfqrwrl-Mfoegfrezz Myositis Overlap Syndrome, Systemic Autoimmune Rheumatic Disease, Undifferentiated Connective Tissue Disease Nucleolar Systemic Sclerosis, Scleroderma-Autoimmune Myositis Overlap Syndrome, Sjogren Syndrome, Raynaud phenomenon, Pulmonary Arterial Hypertension, Systemic Autoimmune Rheumatic Disease, Cancer Centromere Scleroderma-CREST, Limited Cutaneous SSc, Raynaud's Phenomenon, Primary Biliary Cholangitis Nuclear Dot Primary Biliary Cholangitis Nuclear Primary Biliary Cholangitis, Autoimmune Membrane Hepatitis/Liver disease, Systemic Autoimmune Rheumatic Disease, Autoimmune Cytopenias, Linear Scleroderma, Antiphospholipid Syndrome Performed at: [address] [id number] Newborn Photographer: Van Newman PhD, Phone: [phone] PERFORMED BY: [place] [address] PATHOLOGIST ICU SPECIALIST SANTY BLACKWELL M.D. Performed By: #### E SR, CBC, CRP, CK, CMP #### [address] #### NEREYDA, ALDOLASE #### [facility] , Aldolaseon 06-17-2023 Aldolase 2.8 U/L Low 3.3-10.3 [facility] Comment on above: Result Comment: Perf ormed at: [facility] [address] [id number] Newborn Photographer: Van Newman PhD, Phone: [phone] PERFORMED BY: [place] [address] PATHOLOGIST ICU SPECIALIST SANTY BLACKWELL M.D. Performed By: #### E SR, CBC, CRP, CK, CMP #### [address] #### NEREYDA, ALDOLASE #### [facility] , C-Reactive Proteinon 024 CRP [Mass/Vol] mg/L Normal 0.0-0.5 [facility] Comment on above: Result Comment: PERF ORMED BY: [place] [address] PATHOLOGIST ICU SPECIALIST SANTY BLACKWELL M.D. Performed By: #### E SR, CBC, CRP, CK, CMP #### [place] [address] [place] #### NEREYDA, ALDOLASE #### [facility] , Complete Blood Count Auto Di ffon 06-17-2023 Basophils (Bld) [#/Vol] 0.0 10*3/uL Normal 0.0-0.2 [facility] Comment on above: Performed By: #### E SR, CBC, CRP, CK, CMP #### [address] #### NEREYDA, ALDOLASE #### [facility] , Basophils/100 WBC (Bld) 0.5 % Normal . [facility] Comment on above: Performed By: #### E SR, CBC, CRP, CK, CMP #### [address] #### NEREYDA, ALDOLASE #### [facility] , Eosinophils (Bld) [#/Vol] 0.0 10*3/uL Normal 0.0-0.45 [facility] Comment on above: Performed By: #### E SR, CBC, CRP, CK, CMP #### [place] [address] [place] #### NEREYDA, ALDOLASE #### [facility] , Eosinophils/100 WBC (Bld) 1.2 % Normal . [facility] Comment on above: Performed By: #### E SR, CBC, CRP, CK, CMP #### [place] [address] [place] #### NEREYDA, ALDOLASE #### [facility] , Erythrocyte distribution width (RBC) [Ratio] 13.0 % Normal 11.9-15.3 [facility] Comment on above: Performed By: #### E SR, CBC, CRP, CK, CMP #### [place] [address] [place] #### NEREYDA, ALDOLASE #### [facility] , Hematocrit (Bld) [Volume fraction] 41.5 % Normal 34.0-46.4 [facility] Comment on above: Performed By: #### E SR, CBC, CRP, CK, CMP #### [address] #### NEREYDA, ALDOLASE #### [facility] , Hemoglobin (Bld) [Mass/Vol] 13.9 g/dL Normal 11.8-15.4 [facility] Comment on above: Performed By: #### E SR, CBC, CRP, CK, CMP #### [address] #### NEREYDA, ALDOLASE #### [facility] , Lymphocytes (Bld) [#/Vol] 1.3 10*3/uL Normal 1.00-4.8 [facility] Comment on above: Performed By: #### E SR, CBC, CRP, CK, CMP #### [address] #### NEREYDA, ALDOLASE #### [facility] , Lymphocytes/100 WBC (Bld) 31.0 % Normal . [facility] Comment on above: Performed By: #### E SR, CBC, CRP, CK, CMP #### [address] #### NEREYDA, ALDOLASE #### [facility] , MCH (RBC) [Entitic mass] 30.0 pg Normal 24.7-34.3 [facility] Comment on above: Performed By: #### E SR, CBC, CRP, CK, CMP #### [place] [address] [place] #### NEREYDA, ALDOLASE #### [facility] , MCV (RBC) [Entitic vol] 89.3 fL Normal 80-100 [facility] Comment on above: Performed By: #### E SR, CBC, CRP, CK, CMP #### [place] [address] [place] #### NEREYDA, ALDOLASE #### [facility] , Mean Corpuscular HGB Conc 33.6 g/dL Normal 32.0-35.0 [facility] Comment on above: Performed By: #### E SR, CBC, CRP, CK, CMP #### [facility] [address] [place] [address] [place] #### NEREYDA, ALDOLASE #### [facility] , Monocytes (Bld) [#/Vol] 0.3 10*3/uL Normal 0.0-0.8 [facility] Comment on above: Performed By: #### E SR, CBC, CRP, CK, CMP #### [address] #### NEREYDA, ALDOLASE #### [facility] , Monocytes/100 WBC (Bld) 7.3 % Normal . [facility] Comment on above: Performed By: #### E SR, CBC, CRP, CK, CMP #### [place] [address] [place] #### NEREYDA, ALDOLASE #### [facility] , Neutrophils (Bld) [#/Vol] 2.4 10*3/uL Normal 1.8-7.7 [facility] Comment on above: Performed By: #### E SR, CBC, CRP, CK, CMP #### [place] [address] [place] #### NEREYDA, ALDOLASE #### [facility] , Neutrophils/100 WBC (Bld) 60.0 % Normal . [facility] Comment on above: Performed By: #### E SR, CBC, CRP, CK, CMP #### [place] [address] [place] #### NEREYDA, ALDOLASE #### [facility] , NRBC% 0.3 /100{WBC} Normal 0-0.5 [facility] Comment on above: Performed By: #### E SR, CBC, CRP, CK, CMP #### [facility] [address] [place] [address] #### NEREYDA, ALDOLASE #### [facility] , Platelet mean volume (Bld) [Entitic vol] 8.1 fL Normal 6.3-10.7 [facility] Comment on above: Performed By: #### E SR, CBC, CRP, CK, CMP #### [facility] [address] [place] [address] #### NEREYDA, ALDOLASE #### [facility] , Platelets (Bld) [#/Vol] 240 10*3/uL Normal 150-450 [facility] Comment on above: Performed By: #### E SR, CBC, CRP, CK, CMP #### [facility] [address] [place] [address] #### NEREYDA, ALDOLASE #### [facility] , RBC (Bld) [#/Vol] 4.65 10*6/uL Normal 3.60-5.00 [facility] Comment on above: Performed By: #### E SR, CBC, CRP, CK, CMP #### [address] #### NEREYDA, ALDOLASE #### [facility] , WBC (Bld) [#/Vol] 4.1 10*3/uL Normal 3.8-11.6 [facility] Comment on above: Performed By: #### E SR, CBC, CRP, CK, CMP #### [facility] [address] [place] [address] [place] #### NEREYDA, ALDOLASE #### [facility] , Comprehensive Metabolic Pane monique 06-17-2023 Albumin [Mass/Vol] 4.5 g/dL Normal 3.5-5.7 [facility] Comment on above: Performed By: #### E SR, CBC, CRP, CK, CMP #### [facility] [address] [place] [address] #### NEREYDA, ALDOLASE #### [facility] , Albumin/Globulin [Mass ratio] 1.6 {ratio} Normal [facility] Comment on above: Performed By: #### E SR, CBC, CRP, CK, CMP #### [facility] [address] [place] [address] [place] #### NEREYDA, ALDOLASE #### [facility] , ALP [Catalytic activity/Vol] 37 U/L Normal 34-104 [facility] Comment on above: Performed By: #### E SR, CBC, CRP, CK, CMP #### [address] #### NEREYDA, ALDOLASE #### [facility] , ALT [Catalytic activity/Vol] 13 U/L Normal 7-52 [facility] Comment on above: Performed By: #### E SR, CBC, CRP, CK, CMP #### [facility] [address] [place] [address] #### NEREYDA, ALDOLASE #### [facility] , Anion gap [Moles/Vol] 10.2 mmol/L Normal 6.0-15.0 [facility] Comment on above: Performed By: #### E SR, CBC, CRP, CK, CMP #### [facility] [address] [place] [address] [place] #### NEREYDA, ALDOLASE #### [facility] , AST [Catalytic activity/Vol] 17 U/L Normal 13-39 [facility] Comment on above: Performed By: #### E SR, CBC, CRP, CK, CMP #### [facility] [address] [place] [address] [place] #### NEREYDA, ALDOLASE #### [facility] , Bilirubin [Mass/Vol] 0.4 mg/dL Normal 0.3-1.0 [facility] Comment on above: Performed By: #### E SR, CBC, CRP, CK, CMP #### [facility] [address] [place] [address] [place] #### NEREYDA, ALDOLASE #### [facility] , Calcium [Mass/Vol] 9.2 mg/dL Normal 8.6-10.3 [facility] Comment on above: Performed By: #### E SR, CBC, CRP, CK, CMP #### [facility] [address] [place] [address] [place] #### NEREYDA, ALDOLASE #### [facility] , Chloride [Moles/Vol] 105 mmol/L Normal 98-107 [facility] Comment on above: Performed By: #### E SR, CBC, CRP, CK, CMP #### [facility] [address] [place] [address] [place] #### NEREYDA, ALDOLASE #### [facility] , CO2 [Moles/Vol] 28.3 mmol/L Normal 21.0-31.0 [facility] Comment on above: Performed By: #### E SR, CBC, CRP, CK, CMP #### [facility] [address] [place] [address] #### NEREYDA, ALDOLASE #### [facility] , Creatinine [Mass/Vol] 0.69 mg/dL Normal 0.60-1.20 [facility] Comment on above: Performed By: #### E SR, CBC, CRP, CK, CMP #### [facility] [address] [place] [address] [place] #### NEREYDA, ALDOLASE #### [facility] , GFR/1.73 sq M.predicted MDRD (S/P/Bld) [Vol rate/Area] mL/min/{1.73_m2} Normal [facility] Comment on above: Performed By: #### E SR, CBC, CRP, CK, CMP #### [place] [address] [place] #### NEREYDA, ALDOLASE #### [facility] , Globulin (S) [Mass/Vol] 2.9 g/dL Normal [facility] Comment on above: Performed By: #### E SR, CBC, CRP, CK, CMP #### [address] #### NEREYDA, ALDOLASE #### [facility] , Glucose [Mass/Vol] 84 mg/dL Normal 70-100 [facility] Comment on above: Result Comment: [facility] Glucose Reference Range is dependent on time and content of last meal. Glucose of more than 200 mg/dL in a nonstressed, ambulatory subject supports the diagnosis of Diabetes Mellitus. ADA recommended reference range Performed By: #### E SR, CBC, CRP, CK, CMP #### [place] [address] [place] #### NEREYDA, ALDOLASE #### [facility] , Potassium [Moles/Vol] 4.5 mmol/L Normal 3.5-5.1 [facility] Comment on above: Performed By: #### E SR, CBC, CRP, CK, CMP #### [place] [address] [place] #### NEREYDA, ALDOLASE #### [facility] , Protein [Mass/Vol] 7.4 g/dL Normal 6.4-8.9 [facility] Comment on above: Performed By: #### E SR, CBC, CRP, CK, CMP #### [place] [address] [place] #### NEREYDA, ALDOLASE #### [facility] , Sodium [Moles/Vol] 139 mmol/L Normal 136-145 [facility] Comment on above: Performed By: #### E SR, CBC, CRP, CK, CMP #### [place] [address] [place] #### NEREYDA, ALDOLASE #### [facility] , Urea nitrogen [Mass/Vol] 10 mg/dL Normal 7-25 [facility] Comment on above: Performed By: #### E SR, CBC, CRP, CK, CMP #### [address] #### NEREYDA, ALDOLASE #### [facility] , Creatine Kinaseon 06-17-2023 CK [Catalytic activity/Vol] 79 U/L Normal 30-223 [facility] Comment on above: Result Comment: PERF ORMED BY: [place] [address] PATHOLOGIST ICU SPECIALIST SANTY BLACKWELL M.D. Performed By: #### E SR, CBC, CRP, CK, CMP #### [address] #### NEREYDA, ALDOLASE #### [facility] , Erythrocyte Sedimentation Ra nato 06-17-2023 ESR (Bld) [Velocity] 22 mm/h High 0-19 [facility] Comment on above: Result Comment: PERF ORMED BY: [place] [address] PATHOLOGIST ICU SPECIALIST SANTY BLACKWELL M.D. Performed By: #### E SR, CBC, CRP, CK, CMP #### [place] [address] [place] #### NEREYDA, ALDOLASE #### [facility] , Quick Strepon 03-21-2022 S. pyogenes Org specific cx Ql (Throat) Negative [facility] Other Quick Strep [facility] Other SARS-CoV-2 (COVID-19) RNA NA A+probe Ql (Resp)on 03-21-2022 SARS-CoV-2 (COVID-19) RNA ANDREA+probe Ql (Unsp spec) Positive Spiralcat [facility] [employer] Other HCG, ,Urineon 11-12 Beta HCG ( test) Ql (U) Negative Normal NEG [facility] Comment on above: Result Comment: Spec imens with hCG levels near the threshold of the test (25 mIU/mL) may give a negative or indeterminate result. In such cases, another test should be performed with a new specimen in 48-72 hours. If early is suspected clinically in this setting, correlation with quantitative serum b-hCG level is suggested. [facility] has confirmed the use of plasma for this test. This has not been cleared or approved by the U.S. Food and Drug Administration. The FDA has determined that such clearance is not necessary. Performed By: #### U HCG #### [facility] [address] [place] [address] [place] [address] Newborn Photographer: Imtiaz Monet MD Hemoglobin and Hematocriton 11-12-2021 Hematocrit (Bld) [Volume fraction] 37.6 % 36.3 - 47.1 % [facility] Hemoglobin (Bld) [Mass/Vol] 12.5 g/dL 11.9 - 15.1 g/dL [facility] Hgb/Hcton 11-12-2021 Hematocrit (Bld) [Volume fraction] 37.6 % Normal 36.3-47.[address] [facility] Comment on above: Performed By: #### H H #### [facility] [address] [place] [address] [place] [address] Newborn Photographer: Imtiaz Monet MD Hemoglobin (Bld) [Mass/Vol] 12.5 g/dL Normal 11.9-15.[address] [facility] Comment on above: Performed By: #### H H #### [facility] [address] [place] [address] Newborn Photographer: Imtiaz Monet MD , Urineon Beta HCG ( test) Ql (U) Negative NEGATIVE [facility] Comment on above: Specimens with hCG l evels near the threshold of the test (25 mIU/mL) may give a negative or indeterminate result. In such cases, another test should be performed with a new specimen in 48-72 hours. If early is suspected clinically in this setting, correlation with quantitative serum b-hCG level is suggested. [employer] has confirmed the use of plasma for this test. This has not been cleared or approved by the U.S. Food and Drug Administration. The FDA has determined that such clearance is not necessary. RENUKA HAMILTON [facility] Surgical Pathologyon 022 Surgical Pathology (NOTE) -- [...] CERVIX, UTERUS, BILATERAL FALLOPIAN TUBES Gross Description DALE SANCHEZ, CERVIX, UTERUS, BILATERAL FALLOPIAN TUBES 138.2 gram uterus and cervix (10.0 cm cervix-fundus x 6.0 cm cornu-cornu x 4.5 cm anterior-posterior) with attached bilateral fimbriated fallopian tubes (left: [...] fallopian tubes reveals unremarkable appearing cut surfaces. Data Storage Specialist sections 11c as follows: 1 anterior endomyometrium, 2 posteror endomyometrium, 3 fulfillment representative sections of markedly vascularized myometrium, 4 anterior cervix, 5 posterior cervix, 6-8 fulfillment representative left fallopian tube, 9-11 fulfillment representative right fallopian tube. tm Microscopic Description Microscopic examination performed. SURGICAL PATHOLOGY CONSULTATION Patient Name: DALE SANCHEZ [facility] Rec: [id number] Path Number: [id number] [facility] ANATOMIC PATHOLOGY [address] [place] [id number] [facility] Comment on above: Performed By: #### P PPVS #### [address] [address] Newborn Photographer: Uri Rangel MD US PELVIS COMPLETE NON-OB [...] Jr., DO 07/03/21 Final result Normal [facility] Thyroxine T4on 12-06-2020 T4 [Mass/Vol] 6.9 ug/dL Normal 4.5-10.9 [facility] Comment on above: Performed By: #### T 4 #### [facility] [employer] [address] [place] [address] Newborn Photographer: Uri Rangel MD #### TSH #### [facility] [address] [place] [address] Newborn Photographer: Imtiaz Monet MD [id number] By: Wong cortez on 12-05-2020 T4 [Mass/Vol] 6.9 ug/dL 4.5 - 10.9 ug/dL [facility] Phone: [facility] Phone: TSH without ReflexOrdered By : Wong Cade on 12-05-2020 Interpretation and review of laboratory results Abnormal [facility] Phone: TSH Qn 0.12 m[IU]/L Low [facility] Phone: [facility] Phone: Thyroid Stim. Horm.on 2020 TSH Qn 0.12 m[IU]/L Low 0.30-5.[address] [facility] Comment on above: Performed By: #### T 4 #### [id number] [place], [place] [id number] Newborn Photographer: Uri Rangel MD #### TSH #### [facility] [address] [place] [address] [place] [address] Newborn Photographer: Imtiaz Monet MD US NON OB TRANSVAGINALon US NON OB TRANSVAGINAL UTERUS:anteverted , homogeneous echo pattern ? ENDO:1.1cm in thickness ? RT. OVARY:seen, wnl ? LT. OVARY:seen, wnl ? Prominent vessels in both adnexal regions with increase in vascularity, ? Vaginal congestion ? Small amount of free fluid visualized in posterior cul-de-sac Interpreted by: Rowena Wei, NEVA - MARTIN Arango DO Signed by: Jaqui Arango DO 11/30/20 Final result Normal [facility] [id number] By: Wong cortez on 10-05-2020 T4 [Mass/Vol] 8.6 ug/dL 4.5 - 10.9 ug/dL [facility] Phone: [facility] Phone: TSH without ReflexOrdered By : Wong Cade on 10-05-2020 Interpretation and review of laboratory results Abnormal [facility] Phone: TSH Qn 0.01 m[IU]/L Low [facility] Phone: [facility] Phone: ALTOrdered By: Wong mccord on 08-25-2020 ALT [Catalytic activity/Vol] 12 U/L 5 - 33 U/L [facility] Phone: CA 125Ordered By: Rowena dale on 08-25-2020 CA 125 15 U/mL <38 [facility] Phone: CBCOrdered By: Wong mccord on 08-25-2020 Hematocrit (Bld) [Volume fraction] 37.7 % 36.3 - 47.1 % [facility] Phone: Hemoglobin.gastrointes tinal spec 1 Ql (Stl) 11.8 g/dL Low 11.9 - 15.1 g/dL [facility] Phone: Interpretation and review of laboratory results Abnormal [facility] Phone: MCH (RBC) [Entitic mass] 27.3 pg 25.2 - 33.5 pg [facility] Phone: MCHC (RBC) [Mass/Vol] 31.3 g/dL 28.4 - 34.8 g/dL [facility] Phone: MCV (RBC) [Entitic vol] 87.3 fL 82.6 - 102.9 fL [facility] Phone: NRBC Automated 0.0 0.0 per 100 WBC [facility] Phone: Platelet distribution width (Bld) [Ratio] 13.1 % 11.8 - 14.4 % [facility] Phone: Platelet mean volume (Bld) [Entitic vol] 9.5 fL 8.1 - 13.5 fL [facility] Phone: Platelets (Bld) [#/Vol] 260 10*3/uL [facility] Phone: RBC (Bld) [#/Vol] 4.32 10*6/uL 3.95 - 5.1 1 m/uL [facility] Phone: WBC (Bld) [#/Vol] 6.9 10*3/uL [facility] Phone: CEAOrdered By: Rowena elder 08-25-2020 CEA 1.3 ng/mL <3.9 [facility] Phone: Comment on above: The [employer] ECLIA as say is used. Results obtained with different assay methods cannot be used interchangeably. Laboratory - Chemistry and C hemistry - challengeOrdered By: Wong Cade on 08-25-2020 T4 [Mass/Vol] 7.1 ug/dL Invalid Interpretation Code [employer] Phone: Laboratory - Chemistry and C hemistry - challengeon 08-25-2020 ALT [Catalytic activity/Vol] 12.0 U/L Invalid Interpretation Code [facility] T3 [Mass/Vol] 75.0 ng/dL Invalid Interpretation Code [facility] TSH Qn <0.01 L Invalid Interpretation Code [facility] Laboratory - Hematology and Cell countson 08-25-2020 Erythrocyte distribution width (RBC) [Ratio] 13.10 % Invalid Interpretation Code [facility] ESR (Bld) [Velocity] 18.0 mm/h Invalid Interpretation Code [facility] Hematocrit (Bld) [Volume fraction] 37.70 % Invalid Interpretation Code [facility] Hemoglobin (Bld) [Mass/Vol] 11.80 g/dL Invalid Interpretation Code [facility] MCH (RBC) [Entitic mass] 27.30 pg Invalid Interpretation Code [facility] MCHC (RBC) [Mass/Vol] 31.30 g/dL Invalid Interpretation Code [facility] MCV (RBC) [Entitic vol] 87.30 fL Invalid Interpretation Code [facility] Platelets (Bld) [#/Vol] 260.0 10*3/uL Invalid Interpretation Code [facility] RBC (Bld) [#/Vol] 4.320 10*6/uL Invalid Interpretation Code [facility] WBC (Bld) [#/Vol] 6.90 10*3/uL Invalid Interpretation Code [facility] No Panel Informationon 08-25 ks Invalid Interpretation Code [facility] 0.30 IU/L Invalid Interpretation Code 0 - 0.55 [facility] Sedimentation RateOrdered By : Wong Cade on 08-25-2020 Sed Rate 18 mm 0 - 20 mm [facility] Phone: [id number] By: Wong cortez on 08-25-2020 T3, Total 75 ng/dL 60 - 181 ng/dL [facility] Phone: TSH without ReflexOrdered By : Wong Cade on 08-25-2020 Interpretation and review of laboratory results Abnormal [facility] Phone: TSH Qn m[IU]/L Low [facility] Phone: US NON OB TRANSVAGINALOrdere d By: Rowena Wei on 08-24-2020 1. Complex indeterminate cystic structure in the left ovary measuring up to 2.7 cm which could represent a hemorrhagic cyst. Follow-up pelvic ultrasound recommended in 6-12 weeks. If unchanged, continue follow-up with ultrasound or consider contrast-enhanced pelvic MRI. If these do not confirm endometrioma or dermoid, consider surgical evaluation/gynecolo gical surgical consultation. 2. Normal appearance of the right ovary. 3. Endometrial stripe thickness measuring 1.2 cm, within normal limits. 4. Anteroflexed uterus. The findings were sent to the [facility] at 1:55 pm on 08/24/2020to be communicated to a licensed caregiver. [facility] Phone: EXAMINATION: PELVIC ULTRASOUND 08/24/2020 TECHNIQUE: Transvaginal [...] Free Fluid: No evidence of free fluid. [facility] Phone: Anton, pn Incoming Radiant Results From [employer] - 08/24/2020 1:58 PM EDT EXAMINATION: PELVIC [...] not confirm endometrioma or dermoid, consider surgical evaluation/gynecolo gical surgical consultation. 2. Normal appearance of the right ovary. 3. Endometrial stripe thickness measuring 1.2 cm, within normal limits. 4. Anteroflexed uterus. The findings were sent to the [facility] at 1:55 pm on 08/24/2020to be communicated to a licensed caregiver. [facility] Phone: [facility] Phone: TSH without ReflexOrdered By : Rowena Wei on 08-10-2020 Interpretation and review of laboratory results Abnormal [facility] Phone: TSH Qn 0.02 m[IU]/L Low [facility] Phone: Vital Signs Date Time Vital Sign Value Performing Clinician Facility 04-08-2023 09:30-0500 Body height 173.99 cm Smiley Lopez Other [facility] Other 04-08-2023 09:30-0500 Body mass index (BMI) [Ratio] 29.51 kg/m2 Smiley Lopez Other [facility] Other 04-08-2023 09:30-0500 Body weight 89.36 kg Smiley Lopez Other [facility] Other 04-08-2023 09:30-0500 Diastolic blood pressure 76 mm[Hg] Smiley Lopez Other [facility] Other 04-08-2023 09:30-0500 Respiratory rate 17 /min Smiley Lopez Other [facility] Other 04-08-2023 09:30-0500 SaO2% (BldA) [Mass fraction] 99 % Smiley Lopez Other [facility] Other 04-08-2023 09:30-0500 Systolic blood pressure 106 mm[Hg] Smiley Lopez Other [facility] Other 03-21-2022 15:00-0500 Body height 173.99 cm Tammie Hawk Other [facility] Other 03-21-2022 15:00-0500 Body mass index (BMI) [Ratio] 29.22 kg/m2 Tammie Hawk Other [facility] Other 03-21-2022 15:00-0500 Body temperature 98.4 [degF] Tammie Hawk Other [facility] Other 03-21-2022 15:00-0500 Body weight 88.45 kg Tammie Hawk Other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
== END 2023-09-01 16:14 | disposition home or self-care (01) ==
LOC: RAD 16:17
PROVIDERS: PCP Nurse Practitioner Family; Visit Provider Nurse Practitioner Family
DX: M79.671 Pain in right foot (principal); S99.921A Unspecified injury of right foot, initial encounter
CPT/HCPCS: 73630

== ENCOUNTER 2023-11-17 07:26 | Outpatient (OUT) | payer OTHER, SELFPAY ==
--- NOTE | 2023-11-17 07:29 | US_ITS ---
The [address] [address] Patient Name: CRISTELA SANCHEZ MRN: [id number] date: 1980 Sex: F Assigned Patient Location: US Current Patient Location: Accession/Order Number: [id number] Exam Date: 11/17/2023 07:30 Report Date: 11/18/2023 08:10 At the request of: AMANDEEP LEES Procedure: US right upper quadrant EXAM: US right upper quadrant HISTORY: . Abdominal pain. Diarrhea . COMPARISON: None. TECHNIQUE: Grayscale and color imaging was performed FINDINGS: The pancreas appears normal. The liver is normal in size. No masses are noted. Color-flow is noted in the portal and hepatic veins. The gallbladder appears normal with no stones or sludge identified. Common bile duct measures 4.8 mm. Right kidney measures 10.9 x 5.1 x 4.9 cm. Color-flow is noted. No solid renal cortical masses or hydronephrosis is noted. No fluid is noted in the right upper quadrant. US/US right upper quadrant IMPRESSION: Normal ultrasound of the right upper quadrant. Electronically authenticated by: KHUSHBOO GARCIA Date: 11/18/2023 08:10
--- OUTSIDE RECORDS SUMMARY | 2023-11-17 07:31 | XMS_ITS | CCD ---
Author Organization [facility] Care Team Providers Care Service Engineer Name Role Phone House DO, Sr Simeon Casas Primary Care Provider [phone] Unavailable Primary Care Physician Unavailab le House DO, Sr Simeon P Primary Care Provider [phone] Wong Cade Primary Care Physician Unavai lable [place] DO, Sr Simeon P Primary Care Provider [phone] ROWENA WEI Referring Unavailabl e HOUSE, SR SIMEON Casas Primary Care Unavailable JAQUI OSUNA Attending Unavail able JAQUI OSUNA Admitting Unavail able HOUSE, SR SIMEON Casas Primary Care Unavailable WONG CADE Referring Unavailable HOUSE, SR SIMEON P Primary Care Unavailable ROWENA WEI Referring Unavailabl e HOUSE, SR SIMEON Casas Primary Care Unavailable Tammie Hawk Unavailable Smiley Lopez Unavailable [phone] Jabari Carpenter Admitting Unavailable Jabari Carpenter Attending Unavailable Smiley Lopez Primary Care Unavailable NEVA Lopez Primary Care Provider MD Jabari Carpenter Attending Provider Allergies Allergy Classification Reported Allergen(s) Allergy Type Date of Onset Reaction(s) Facility Penicillins (antibiotic) (7 sources) Penicillins Drug Allergy 1 PEER (2 sources) Penicillins Propensity to adverse reactions to drug 1 PEER (3 sources) Penicillin G Drug Allergy throat swelling [facility] [employer] Other (1 source) Penicillin Drug Allergy 3 [facility] Repository Medications Current Medications Medication Drug Class(es) [...] tablet 0 11/12/2021 11/12/2022 Active levothyroxine sodium 0.1 mg oral tablet (17 sources) l-Thyroxine Start: 07-16-2023 End: 07-16-2023 take 100 ug by mouth once daily Levothyroxine Active 100 MCG PO Daily 90 90 July 16, 2023 11:22am Start: 11-21-2020 take 1 tablet by moncho th once daily levothyroxine (SYNTHROID) 125 MCG tablet [...] 07/17/2020 Active take 1 tablet by moncho once daily in the morning Levothyroxine Sodium [...] e flush 0.9 % injection 5-40 mL tiZANidine 2 mg oral tablet (2 sources) Central alpha-2 Adrenergic Agonist Start: 06-13-2023 take 2 mg by mouth three times daily Tizanidine Active 2 MG PO Three times daily 10 02June 13, 2023 1:00am Completed/Discontinued Medications Medication Drug Class(es) Dates Sig [...] Active Problems Problem Classification Problem Date Documented Da te Episodic/Chronic Abdominal pain (2 sources) Abdominal pain; Translations: [Unspecified abdominal pain] 11-14-2023 Episodic Cardiac dysrhythmias (1 source) Palpitations Episodic Conditions associated with dizziness or vertigo (1 source) Dizziness and giddiness Episodic Immunizations and screening for infectious disease (4 sources) Exposure to Hepatitis B virus; Translations: [Contact with and (suspected) exposure to viral hepatitis] 06-11-2023 Episodic Malaise and fatigue (3 sources) Fatigue; [...] genital organs and menstrual cycle] Episodic Other gastrointestinal disorders (1 source) Diarrhea; Translations: [Diarrhea, unspecified] 11-14-2023 Episodic Other gastrointestinal disorders (1 source) Diarrhea, unspecified; Translations: [Diarrhea] 11-14-2023 Episodic Other lower respiratory disease (1 source) [...] of the skin and subcutaneous tissue Episodic Superficial injury; contusion (2 sources) Contusion of left foot; Translations: [Contusion of left foot, initial encounter] 09-02-2023 Episodic Thyroid disorders (16 sources) Hyperthyroidism; Translations: [...] Antinuclear Abs, IFA Positive Critically abnormal . [facility] Comment on above: Result Comment: Nega tive <1:80 Borderline 1:80 Positive >1:80 Performed By: #### E SR, CBC, CRP, CK, CMP #### [facility] [address] [place] [address] #### NEREYDA, ALDOLASE #### [facility] , Homogeneous Pattern 1:320 High . [facility] Comment on above: Result Comment: ICAP nomenclature: [id number] Performed By: #### E SR, CBC, CRP, CK, CMP #### [facility] [address] [place] [address] [place] #### NEREYDA, ALDOLASE #### [facility] , Note [address] [facility] Comment on above: Result Comment: Fatoumata johnson Potential Disease Association Homogeneous Systemic Lupus Erythematosus, Drug Induced Systemic Lupus Erythematosus, Chronic Autoimmune hepatitis, Juvenile Idiopathic Arthritis Speckled Sjogren Syndrome, Systemic Lupus Erythematosus, Subacute Cutaneous Lupus, Lupus, Congenital Heart Block, Mixed Connective Tissue Disease, Scleroderma-diffuse, Scleroderma-Autoimmune Myositis Overlap Syndrome, Systemic Lupus Zdtfqpobixbmx-Wutjkvptvju-Dzhhtwmnam Myositis Overlap Syndrome, Systemic Autoimmune Rheumatic Disease, [...] Cytopenias, Linear Scleroderma, Antiphospholipid Syndrome Performed at: - [facility] [address] [id number] Welding Machine Setter: Van Newman PhD, Phone: [phone] PERFORMED BY: [place] [address] PATHOLOGIST NURSE EMERGENCY ROOM SANTY BLACKWELL M.D. Performed By: #### E SR, CBC, CRP, CK, CMP #### [facility] [address] [place] [address] [place] #### NEREYDA, ALDOLASE #### [facility] , Alanine aminotransferase [En zymatic activity/volume] in Serum or PlasmaOrdered By: Jabari Carpenter on 06-17-2023 ALT [Catalytic activity/Vol] 13 U/L 7-52 [facility] Albumin [Mass/volume] in Ser um or Plasma by Bromocresol green (BCG) dye binding methoOrdered By: Jabari Carpenter on 06-17-2023 Albumin BCG dye [Mass/Vol] 4.5 g/dL 3.5-5.7 [facility] Aldolaseon 06-17-2023 Aldolase 2.8 U/L Low 3.3-10.3 [facility] Comment on above: Result Comment: Perf ormed at: - [facility] [address] [id number] Welding Machine Setter: Van Newman PhD, Phone: [phone] PERFORMED BY: [place] [address] PATHOLOGIST NURSE EMERGENCY ROOM SANTY BLACKWELL M.D. Performed By: #### E SR, CBC, CRP, CK, CMP #### [address] #### NEREYDA, ALDOLASE #### [facility] , Alkaline phosphatase [Enzyma tic activity/volume] in Serum or PlasmaOrdered By: Jabari Carpenter on 06-17-2023 ALP [Catalytic activity/Vol] 37 U/L 34-104 [facility] Aspartate aminotransferase [ Enzymatic activity/volume] in Serum or PlasmaOrdered By: Jabari Carpenter on 06-17-2023 AST [Catalytic activity/Vol] 17 U/L 13-39 [facility] Basophils Auto (Bld) [#/Vol] Ordered By: Jabari Carpenter on 06-17-2023 Basophils (Bld) [#/Vol] 0.0 10*3/uL 0.0-0.2 [facility] Basophils/100 WBC Auto (Bld) Ordered By: Jabari Carpenter on 06-17-2023 Basophils/100 WBC (Bld) 0.5 % . [facility] Bilirubin.total [Mass/volume ] in Serum or PlasmaOrdered By: Jabrai Carpenter on 06-17-2023 Bilirubin [Mass/Vol] 0.4 mg/dL 0.3-1.0 [facility] C reactive protein [Mass/vol ume] in Serum or PlasmaOrdered By: Jabari Carpenter on 06-17-2023 CRP [Mass/Vol] < 0.5 mg/dL 0.0-0.5 [facility] C-Reactive Proteinon 024 CRP [Mass/Vol] mg/L Normal 0.0-0.5 [facility] Comment on above: Result Comment: PERF ORMED BY: [place] [address] PATHOLOGIST NURSE EMERGENCY ROOM SANTY BLACKWELL M.D. Performed By: #### E SR, CBC, CRP, CK, CMP #### [place] [address] [place] #### NEREYDA, ALDOLASE #### [facility] , CT biopsyOrdered By: Jabari Carpenter on 06-17-2023 CT biopsy 2.8 U/L 3.3-10.3 [facility] Comment on above: Performed at: [place] [id number] Director: Van Newman PhD, Phone: [phone] Calcium [Mass/volume] in Ser um or PlasmaOrdered By: Jabari Carpenter on 06-17-2023 Calcium [Mass/Vol] 9.2 mg/dL 8.6-10.3 [facility] Carbon dioxide, total [Moles /volume] in Serum or PlasmaOrdered By: Jabari Carpenter on 06-17-2023 CO2 [Moles/Vol] 28.3 mmol/L 21.0-31.0 [facility] Chloride [Moles/volume] in S mily or PlasmaOrdered By: Jabari Carpenter on 06-17-2023 Chloride [Moles/Vol] 105 mmol/L 98-107 [facility] Complete Blood Count Auto Di ffon 06-17-2023 Basophils (Bld) [#/Vol] 0.0 10*3/uL Normal 0.0-0.2 [facility] Comment on above: Performed By: #### E SR, CBC, CRP, CK, CMP #### [facility] [address] [place] [address] [place] #### NEREYDA, ALDOLASE #### [facility] , Basophils/100 WBC (Bld) 0.5 % Normal . [facility] Comment on above: Performed By: #### E SR, CBC, CRP, CK, CMP #### [address] #### NEREYDA, ALDOLASE #### [facility] , Eosinophils (Bld) [#/Vol] 0.0 10*3/uL Normal 0.0-0.45 [facility] Comment on above: Performed By: #### E SR, CBC, CRP, CK, CMP #### [facility] [address] [place] [address] #### NEREYDA, ALDOLASE #### [facility] , Eosinophils/100 WBC (Bld) 1.2 % Normal . [facility] Comment on above: Performed By: #### E SR, CBC, CRP, CK, CMP #### [address] #### NEREYDA, ALDOLASE #### [facility] , Erythrocyte distribution width (RBC) [Ratio] 13.0 % Normal 11.9-15.3 [facility] Comment on above: Performed By: #### E SR, CBC, CRP, CK, CMP #### [place] [address] [place] #### NEREYDA, ALDOLASE #### [facility] , Hematocrit (Bld) [Volume fraction] 41.5 % Normal 34.0-46.4 [facility] Comment on above: Performed By: #### E SR, CBC, CRP, CK, CMP #### [place] [address] [place] #### NEREYDA, ALDOLASE #### [facility] , Hemoglobin (Bld) [Mass/Vol] 13.9 g/dL Normal 11.8-15.4 [facility] Comment on above: Performed By: #### E SR, CBC, CRP, CK, CMP #### [address] #### NEREYDA, ALDOLASE #### [facility] , Lymphocytes (Bld) [#/Vol] 1.3 10*3/uL Normal 1.00-4.8 [facility] Comment on above: Performed By: #### E SR, CBC, CRP, CK, CMP #### [address] #### NEREYDA, ALDOLASE #### [facility] , Lymphocytes/100 WBC (Bld) 31.0 % Normal . [facility] Comment on above: Performed By: #### E SR, CBC, CRP, CK, CMP #### [address] #### NEREYDA, ALDOLASE #### [facility] , MCH (RBC) [Entitic mass] 30.0 pg Normal 24.7-34.3 [facility] Comment on above: Performed By: #### E SR, CBC, CRP, CK, CMP #### [address] #### NEREYDA, ALDOLASE #### [facility] , MCV (RBC) [Entitic vol] 89.3 fL Normal 80-100 [facility] Comment on above: Performed By: #### E SR, CBC, CRP, CK, CMP #### [place] [address] [place] #### NEREYDA, ALDOLASE #### [facility] , Mean Corpuscular HGB Conc 33.6 g/dL Normal 32.0-35.0 [facility] Comment on above: Performed By: #### E SR, CBC, CRP, CK, CMP #### [place] [address] [place] #### NEREYDA, ALDOLASE #### [facility] , Monocytes (Bld) [#/Vol] 0.3 10*3/uL Normal 0.0-0.8 [facility] Comment on above: Performed By: #### E SR, CBC, CRP, CK, CMP #### [place] [address] [place] #### NEREYDA, ALDOLASE #### [facility] , Monocytes/100 WBC (Bld) 7.3 % Normal . [facility] Comment on above: Performed By: #### E SR, CBC, CRP, CK, CMP #### [address] #### NEREYDA, ALDOLASE #### [facility] , Neutrophils (Bld) [#/Vol] 2.4 10*3/uL Normal 1.8-7.7 [facility] Comment on above: Performed By: #### E SR, CBC, CRP, CK, CMP #### [address] #### NEREYDA, ALDOLASE #### [facility] , Neutrophils/100 WBC (Bld) 60.0 % Normal . [facility] Comment on above: Performed By: #### E SR, CBC, CRP, CK, CMP #### [place] [address] [place] #### NEREYDA, ALDOLASE #### [facility] , NRBC% 0.3 /100{WBC} Normal 0-0.5 [facility] Comment on above: Performed By: #### E SR, CBC, CRP, CK, CMP #### [place] [address] [place] #### NEREYDA, ALDOLASE #### [facility] , Platelet mean volume (Bld) [Entitic vol] 8.1 fL Normal 6.3-10.7 [facility] Comment on above: Performed By: #### E SR, CBC, CRP, CK, CMP #### [facility] [address] [place] [address] #### NEREYDA, ALDOLASE #### [facility] , Platelets (Bld) [#/Vol] 240 10*3/uL Normal 150-450 [facility] Comment on above: Performed By: #### E SR, CBC, CRP, CK, CMP #### [place] [address] [place] #### NEREYDA, ALDOLASE #### [facility] , RBC (Bld) [#/Vol] 4.65 10*6/uL Normal 3.60-5.00 [facility] Comment on above: Performed By: #### E SR, CBC, CRP, CK, CMP #### [address] #### NEREYDA, ALDOLASE #### [facility] , WBC (Bld) [#/Vol] 4.1 10*3/uL Normal 3.8-11.6 [facility] Comment on above: Performed By: #### E SR, CBC, CRP, CK, CMP #### [facility] [address] [place] [address] [place] #### NEREYDA, ALDOLASE #### [facility] , Comprehensive Metabolic Pane monique 06-17-2023 Albumin [Mass/Vol] 4.5 g/dL Normal 3.5-5.7 [facility] Comment on above: Performed By: #### E SR, CBC, CRP, CK, CMP #### [place] [address] [place] #### NEREYDA, ALDOLASE #### [facility] , Albumin/Globulin [Mass ratio] 1.6 {ratio} Normal [facility] Comment on above: Performed By: #### E SR, CBC, CRP, CK, CMP #### [facility] [address] [place] [address] #### NEREYDA, ALDOLASE #### [facility] , ALP [Catalytic activity/Vol] 37 U/L Normal 34-104 [facility] Comment on above: Performed By: #### E SR, CBC, CRP, CK, CMP #### [facility] [address] [place] [address] #### NEREYDA, ALDOLASE #### [facility] , ALT [Catalytic activity/Vol] 13 U/L Normal 7-52 [facility] Comment on above: Performed By: #### E SR, CBC, CRP, CK, CMP #### [facility] [address] [place] [address] #### NEREYDA, ALDOLASE #### [facility] , Anion gap [Moles/Vol] 10.2 mmol/L Normal 6.0-15.0 [facility] Comment on above: Performed By: #### E SR, CBC, CRP, CK, CMP #### [facility] [address] [place] [address] #### NEREYDA, ALDOLASE #### [facility] , AST [Catalytic activity/Vol] 17 U/L Normal 13-39 [facility] Comment on above: Performed By: #### E SR, CBC, CRP, CK, CMP #### [facility] [address] [place] [address] [place] #### NEREYDA, ALDOLASE #### [facility] , Bilirubin [Mass/Vol] 0.4 mg/dL Normal 0.3-1.0 [facility] Comment on above: Performed By: #### E SR, CBC, CRP, CK, CMP #### [facility] [address] [place] [address] [place] #### NEREYDA, ALDOLASE #### [facility] , Calcium [Mass/Vol] 9.2 mg/dL Normal 8.6-10.3 [facility] Comment on above: Performed By: #### E SR, CBC, CRP, CK, CMP #### [facility] [address] [place] [address] [place] #### NEREYDA, ALDOLASE #### [facility] , Chloride [Moles/Vol] 105 mmol/L Normal 98-107 [facility] Comment on above: Performed By: #### E SR, CBC, CRP, CK, CMP #### [facility] [address] [place] [address] [place] #### NEREYDA, ALDOLASE #### [facility] , CO2 [Moles/Vol] 28.3 mmol/L Normal 21.0-31.0 [facility] Comment on above: Performed By: #### E SR, CBC, CRP, CK, CMP #### [facility] [address] [place] [address] [place] #### NEREYDA, ALDOLASE #### [facility] , Creatinine [Mass/Vol] 0.69 mg/dL Normal 0.60-1.20 [facility] Comment on above: Performed By: #### E SR, CBC, CRP, CK, CMP #### [place] [address] [place] #### NEREYDA, ALDOLASE #### [facility] , GFR/1.73 sq M.predicted MDRD (S/P/Bld) [Vol rate/Area] mL/min/{1.73_m2} Normal [facility] Comment on above: Performed By: #### E SR, CBC, CRP, CK, CMP #### [facility] [address] [place] [address] [place] #### NEREYDA, ALDOLASE #### [facility] , Globulin (S) [Mass/Vol] 2.9 g/dL Normal [facility] Comment on above: Performed By: #### E SR, CBC, CRP, CK, CMP #### [place] [address] [place] #### NEREYDA, ALDOLASE #### [facility] , Glucose [Mass/Vol] 84 mg/dL Normal 70-100 [facility] Comment on above: Result Comment: [facility] Glucose Reference Range is dependent on time and content of last meal. Glucose of more than 200 mg/dL in a nonstressed, ambulatory subject supports the diagnosis of Diabetes Mellitus. ADA recommended reference range Performed By: #### E SR, CBC, CRP, CK, CMP #### [address] #### NEREYDA, ALDOLASE #### [facility] , Potassium [Moles/Vol] 4.5 mmol/L Normal 3.5-5.1 [facility] Comment on above: Performed By: #### E SR, CBC, CRP, CK, CMP #### [place] [address] [place] #### NEREYDA, ALDOLASE #### [facility] , Protein [Mass/Vol] 7.4 g/dL Normal 6.4-8.9 [facility] Comment on above: Performed By: #### E SR, CBC, CRP, CK, CMP #### [address] #### NEREYDA, ALDOLASE #### [facility] , Sodium [Moles/Vol] 139 mmol/L Normal 136-145 [facility] Comment on above: Performed By: #### E SR, CBC, CRP, CK, CMP #### [place] [address] [place] #### NEREYDA, ALDOLASE #### [facility] , Urea nitrogen [Mass/Vol] 10 mg/dL Normal 7-25 [facility] Comment on above: Performed By: #### E SR, CBC, CRP, CK, CMP #### [address] [place] [address] [place] #### NEREYDA, ALDOLASE #### [facility] , Creatine Kinaseon 06-17-2023 CK [Catalytic activity/Vol] 79 U/L Normal 30-223 [facility] Comment on above: Result Comment: PERF ORMED BY: [place] [address] PATHOLOGIST NURSE EMERGENCY ROOM SANTY BLACKWELL M.D. Performed By: #### E SR, CBC, CRP, CK, CMP #### [address] #### NEREYDA, ALDOLASE #### [facility] , Creatine kinase [Enzymatic a ctivity/volume] in Serum or PlasmaOrdered By: Jabari Carpenter on 06-17-2023 CK [Catalytic activity/Vol] 79 U/L 30- [facility] Creatinine [Mass/volume] in Serum or PlasmaOrdered By: Jabari Carpenter on 06-17-2023 Creatinine [Mass/Vol] 0.69 mg/dL 0.60-1.20 [facility] Eosinophils Auto (Bld) [#/Vo l]Ordered By: Jabari Carpenter on 06-17-2023 Eosinophils (Bld) [#/Vol] 0.0 10*3/uL 0.0-0.45 [facility] Eosinophils/100 WBC Auto (Bl d)Ordered By: Jabari Carpenter on 06-17-2023 Eosinophils/100 WBC (Bld) 1.2 % . [facility] Erythrocyte Sedimentation Ra nato 06-17-2023 ESR (Bld) [Velocity] 22 mm/h High 0-19 [facility] Comment on above: Result Comment: PERF ORMED BY: [place] [address] PATHOLOGIST NURSE EMERGENCY ROOM SANTY BLACKWELL M.D. Performed By: #### E SR, CBC, CRP, CK, CMP #### [place] [address] [place] #### NEREYDA, ALDOLASE #### [facility] , Erythrocyte distribution wid th Auto (RBC) [Ratio]Ordered By: Jabari Carpenter on 06-17-2023 Erythrocyte distribution width (RBC) [Ratio] 13.0 % 11.9-15.3 [facility] Erythrocyte sedimentation ra te by Photometric methodOrdered By: Jabari aCrpenter on 06-17-2023 ESR Photometric method (Bld) [Velocity] 22 mm/hr 0-19 [facility] Globulin Calc (S) [Mass/Vol] Ordered By: Jabari Carpenter on 06-17-2023 Globulin (S) [Mass/Vol] 2.9 g/dL [facility] Glucose [Mass/volume] in Ser um or PlasmaOrdered By: Jabari Carpenter on 06-17-2023 Glucose [Mass/Vol] 84 mg/dL 70-100 [facility] Comment on above: ADA recommended refe rence rangeRandom Glucose Reference Range is dependent on time and content of last meal. Glucose of more than 200 mg/dL in a nonstressed, ambulatory subject supports the diagnosis of Diabetes Mellitus. Hematocrit Auto (Bld) [Volum e fraction]Ordered By: Jabari Carpenter on 06-17-2023 Hematocrit (Bld) [Volume fraction] 41.5 % 34.0-46.4 [facility] Hemoglobin [Mass/volume] in BloodOrdered By: Jabari Carpenter on 06-17-2023 Hemoglobin (Bld) [Mass/Vol] 13.9 g/dL 11.8-15.4 [facility] Leukocytes [#/volume] correc juliano for nucleated erythrocytes in Blood by Automated counOrdered By: Jabari Carpenter on 06-17-2023 WBC corrected for nucl RBC Auto (Bld) [#/Vol] 4.1 10*3/uL 3.8-11.6 [facility] Lymphocytes Auto (Bld) [#/Vo l]Ordered By: Jabari Carpenter on 06-17-2023 Lymphocytes (Bld) [#/Vol] 1.3 10*3/uL 1.00-4.8 [facility] Lymphocytes/100 WBC Auto (Bl d)Ordered By: Jabari Carpenter on 06-17-2023 Lymphocytes/100 WBC (Bld) 31.0 % . [facility] MCH Auto (RBC) [Entitic mass ]Ordered By: Jabari Carpenter on 06-17-2023 MCH (RBC) [Entitic mass] 30.0 pg 24.7-34.3 [facility] MCHC Auto (RBC) [Mass/Vol]Or dered By: Jabari Carpenter on 06-17-2023 MCHC (RBC) [Mass/Vol] 33.6 g/dL 32.0-35.0 [facility] MCV Auto (RBC) [Entitic vol] Ordered By: Jabari Carpenter on 06-17-2023 MCV (RBC) [Entitic vol] 89.3 fL 80-100 [facility] Monocytes Auto (Bld) [#/Vol] Ordered By: Jabari Carpenter on 06-17-2023 Monocytes (Bld) [#/Vol] 0.3 10*3/uL 0.0-0.8 [facility] Monocytes/100 WBC Auto (Bld) Ordered By: Jabari Carpenter on 06-17-2023 Monocytes/100 WBC (Bld) 7.3 % . [facility] Neutrophils Auto (Bld) [#/Vo l]Ordered By: Jabari Carpenter on 06-17-2023 Neutrophils (Bld) [#/Vol] 2.4 10*3/uL 1.8-7.7 [facility] Neutrophils/100 WBC Auto (Bl d)Ordered By: Jabari Carpenter on 06-17-2023 Neutrophils/100 WBC (Bld) 60.0 % . [facility] No Panel InformationOrdered By: Jabari Carpenter on 06-17-2023 Anti-Nuclear Antibody Comment [address] [facility] Comment on above: Pattern Potential Di sease Association Homogeneous Systemic Lupus Erythematosus, Drug Induced Systemic Lupus Erythematosus, Chronic Autoimmune hepatitis, Juvenile Idiopathic Arthritis Speckled Sjogren Syndrome, Systemic Lupus Erythematosus, Subacute Cutaneous Lupus, Lupus, Congenital Heart Block, Mixed Connective Tissue Disease, Scleroderma-diffuse, Scleroderma-Autoimmune Myositis Overlap Syndrome, Systemic Lupus Ntzhhscxpjfva-Cocjvnrfoqu-Stbrxlyrlf Myositis Overlap Syndrome, Systemic Autoimmune Rheumatic Disease, Undifferentiated Connective Tissue Disease Nucleolar Systemic Sclerosis, Scleroderma-Autoimmune Myositis Overlap Syndrome, Sjogren Syndrome, Raynaud phenomenon, Pulmonary Arterial Hypertension, Systemic Autoimmune Rheumatic Disease, Cancer Centromere Scleroderma-CREST, Limited Cutaneous SSc, Raynaud's Phenomenon, Primary Biliary Cholangitis Nuclear Dot Primary Biliary Cholangitis Nuclear Primary Biliary Cholangitis, AutoimmuneMembrane Hepatitis/Liver disease, Systemic Autoimmune Rheumatic Disease, Autoimmune Cytopenias, Linear Scleroderma, Antiphospholipid Syndrome Performed at: [facility] [place], [place] [id number] Director: Van Newman PhD, Phone: [phone] Estimated GFR (CKD-EPI) > 60.0 mL/Min [facility] Creatinine Clearance (Chem N/A [facility] Nucleated erythrocytes [Pres ence] in Blood by Automated countOrdered By: Jabari Carpenter on 06-17-2023 Nucleated RBC Auto Ql (Bld) 0.3 /100{WBC} 0-0.5 [facility] Platelet mean volume Auto (B ld) [Entitic vol]Ordered By: Jabari Carpenter on 06-17-2023 Platelet mean volume (Bld) [Entitic vol] 8.1 fL 6.3-10.7 [facility] Platelets Auto (Bld) [#/Vol] Ordered By: Jabari Carpenter on 06-17-2023 Platelets (Bld) [#/Vol] 240 10*3/uL 150-450 [facility] Potassium [Moles/volume] in Serum or PlasmaOrdered By: Jabari Carpenter on 06-17-2023 Potassium [Moles/Vol] 4.5 mmol/L 3.5-5.1 [facility] Protein [Mass/volume] in Ser um or PlasmaOrdered By: Jabari Carpenter on 06-17-2023 Protein [Mass/Vol] 7.4 g/dL 6.4-8.9 [facility] RBC Auto (Bld) [#/Vol]Ordere d By: Jabari Carpenter on 06-17-2023 RBC (Bld) [#/Vol] 4.65 10*6/uL 3.60-5.00 [facility] Serum homogeneous pattern an tinuclear antibody (NEREYDA) titerOrdered By: Jabari Carpenter on 06-17-2023 Homogenous nuclear Ab pattern (S) [Titer] 1:[address] [facility] Comment on above: ICAP nomenclature: A C-1 Serum nuclear antibody titer Ordered By: Jabari Carpenter on 06-17-2023 Nuclear Ab (S) [Titer] Positive . [facility] Comment on above: Negative <1:80 Borde rline 1:80 Positive >1:80 Serum or plasma albumin/glob ulin mass ratioOrdered By: Jabari Carpenter on 06-17-2023 Albumin/Globulin [Mass ratio] 1.6 {ratio} [facility] Serum or plasma anion gap de terminationOrdered By: Jabari Carpenter on 06-17-2023 Anion gap [Moles/Vol] 10.2 mmol/L 6.0-15.0 [facility] Sodium [Moles/volume] in Ser um or PlasmaOrdered By: Jabari Carpenter on 06-17-2023 Sodium [Moles/Vol] 139 mmol/L 136-145 [facility] Urea nitrogen [Mass/volume] in Serum or PlasmaOrdered By: Jabari Carpenter on 06-17-2023 Urea nitrogen [Mass/Vol] 10 mg/dL 7-25 [facility] WBC Auto (Bld) [#/Vol]Ordere d By: Jabari Carpenter on 06-17-2023 WBC (Bld) [#/Vol] 4.1 10*3/uL 3.8-11.6 [facility] Hepatitis A virus Ab [Presen ce] in Serum by Immunoassayon 06-11-2023 HAV Ab IA Ql (S) See comment [facility] Comment on above: SEE SCANNED REPORT Hepatitis B virus surface Ab [Presence] in Serumon 06-11-2023 HBV surface Ab Ql (S) See comment [facility] Comment on above: SEE SCANNED REPORT Hepatitis B virus surface Ag [Presence] in Serum or Plasma by Immunoassayon 06-11-2023 HBV surface Ag IA Ql See comment [facility] Comment on above: SEE SCANNED REPORT Laboratory - Chemistry and C hemistry - challengeon 06-11-2023 Free T4 [Mass/Vol] 0.98 ng/dL 0.76-1.46 [facility] TSH Qn 4.138 m[IU]/L 0.358-3.740 [facility] No Panel Informationon 06-11 Hepatitis B Core Total Antibody See comment [facility] Comment on above: SEE SCANNED REPORT Miscellaneous Test See comment [facility] Comment on above: SEE SCANNED REPORT Quick Strepon 03-21-2022 S. pyogenes Org specific cx Ql (Throat) Negative [employer] Other Quick Strep [employer] [facility] [employer] Other SARS-CoV-2 (COVID-19) RNA NA A+probe Ql (Resp)on 03-21-2022 SARS-CoV-2 (COVID-19) RNA ANDREA+probe Ql (Unsp spec) Positive [employer] [facility] [employer] Other HCG, ,Urineon 11-12 Beta HCG ( test) Ql (U) Negative Normal NEG [facility] Comment on above: Result Comment: Spec imens with hCG levels near the threshold of the test (25 mIU/mL) may give a negative or indeterminate result. In such cases, another test should be performed with a new specimen in 48-72 hours. If early is suspected clinically in this setting, correlation with quantitative serum b-hCG level is suggested. [facility] has confirmed the use of plasma for this test. This has not been cleared or approved by the U.S. Food and Drug Administration. The FDA has determined that such clearance is not necessary. Performed By: #### U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 Referral Status Reason Specialty Diagnoses / Procedures Referred By Contact Referred To Contact Pending Review Radiology Diagnoses Irregular menses Procedures US NON OB TRANSVAGINAL Rowena Wei, WOOL SCOURER - CNM [address] [place] [address] Reason evaluate Diagnosis 1 Chronic fatigue (R53 .82) Diagnosis 2 Multiple joint pain (M25.50) Diagnosis 3 Shortness of breath (R06.02) Referral Organization [facility] eleanor Referring Provider First Name Smiley Referring Provider Last Name Alexandraachedana Referring Provider Specialty Nurse Mit brandynionedana Referred Organization Unknown Facility Referred Provider Jabari Carpenter Referred Provider Specialty Rheumatology Referral Priority Routine Advance Directives Latest Code Status on File Code Status Date Activated Date Inactivated Comments Full Code 11/12/2021 9:46 AM Advance Directive Response Recorded Date/ Time Advance Directives No May 6:25pm Summary Purpose Family History Relationship Condition Age at Onset Recorded Date/T maribell Not Specified Unknown Relationship Condition Age at Onset Recorded Date/T maribell mother Unknown Chief Complaint and Reason for Visit Chief Complaint oa/fm/meds Amb Documentation Foot pain Chief Complaint Foot pain stomach ache//diarrhea for over a week Reason for Visit Contusion of left fo ot Abdominal pain Diarrhea Additional Source Comments Reason for Visit (unrecogniz ed section and content) Status Reason Specialty Diagnoses / Procedures Referred By Contact Referred To Contact Pending Review Radiology Diagnoses Irregular menses Procedures US NON OB TRANSVAGINAL Rowena Wei, WOOL SCOURER - CNM [address] [place] [address] Ordered Prescriptions (unrec ognized section and content) [...] 100 mL IVPB (COMPLETED) 2,000 mg, IntraVENous, WASTEW[employer] PROJECT ENGINEER TO O.R., 1 dose, On Fri11/12/21 at [...] Care Teams (unrecognized sec tion and content) Service Engineer Relationship Specialty Start Date End Date Sr Simeon Muñoz DO [address] [place] [address] PCP - General Family Medicine 08/10/20 Team Status: Active Member Role Status Dates Smiley Lopez APRN X RAY SERVICE TECHNICIAN-Benji Primary Care Provider Active Team Status: Active Member Role Status Dates Smiley Lopez APRN X RAY SERVICE TECHNICIANBennie Primary Care Provider, Attending Provider Active Start: June 11, 2023 Team Status: Inactive Member Role Status Dates Smiley Lopez APRN X RAY SERVICE TECHNICIAN-Benji Primary Care Provider Active Start: June 17, 2023 End: June 17, 2023 Jabari Carpenter MD Attending Provider Active St art: June 17, 2023 End: June 17, 2023 Team Status: Active Member Role Status Dates Smiley Lopez APRN X RAY SERVICE TECHNICIAN-C Primary Care Provider Active Start: July 16, 2023 Kendra Schuler LPN Attending Provider Active S tart: July 16, 2023 Team Status: Inactive Member Role Status Dates Smiley Lopez APRN X RAY SERVICE TECHNICIAN-C Primary Care Provider, Attending Provider Active Start: September 02, 2023 End: September 02, 2023 Team Status: Inactive Member Role Status Dates Smiley Lopez APRN X RAY SERVICE TECHNICIAN-C Primary Care Provider, Attending Provider Active Start: November 14, 2023 End: November 14, 2023 INFORMATION SOURCE (unrecogn ized section and content) DATE CREATED AUTHOR 11/15/2021 [facility] DATE CREATED AUTHOR AUTHOR'S ORGANIZ ATION 11/21/2021 [facility] DATE CREATED AUTHOR AUTHOR'S ORGANIZ ATION 06/28/2023 [facility] Goals (unrecognized section and content) Goals may be documented in a n alternate section FOR RECORDS PERTAINING TO PATIENTS WHO ARE [...] BE BASED ON THE PRIMARY CLINICAL RECORDS. [employer] provides no warranty or guarantee of the accuracy or completeness of information in this document.
== END 2023-11-17 07:27 | disposition home or self-care (01) ==
LOC: US 07:26
PROVIDERS: PCP Nurse Practitioner Family; Visit Provider Nurse Practitioner Family
DX: R19.7 Diarrhea, unspecified (principal); R10.9 Unspecified abdominal pain
CPT/HCPCS: 76705

== ENCOUNTER 2023-11-19 15:19 | Outpatient (REF) | payer OTHER, SELFPAY ==
--- OUTSIDE RECORDS SUMMARY | 2023-11-19 15:29 | XMS_ITS | CCD ---
Author Organization [facility] Care Team Providers Care Surgical Technologist Name Role Phone House DO, Sr Simeon Casas Primary Care Provider [phone] Unavailable Primary Care Physician Unavailab le House DO, Sr Simeon P Primary Care Provider [phone] Wong Cade Primary Care Physician Unavai lable Cordova DO, Sr Simeon P Primary Care Provider [phone] ROWENA WEI Referring Unavailabl e HOUSE, SR SIMEON Casas Primary Care Unavailable JAQUI OSUNA Attending Unavail able JAQUI OSUNA Admitting Unavail able HOUSE, SR SIMEON Casas Primary Care Unavailable WONG CADE Referring Unavailable HOUSE, SR SIMEON P Primary Care Unavailable ROWENA WEI Referring Unavailabl e HOUSE, SR SIMEON Casas Primary Care Unavailable Tammie Hawk Unavailable Smiley Lopez Unavailable Jabari Carpenter Admitting Unavailable Jabari Carpenter Attending Unavailable Smiley Lopez Primary Care Unavailable NEVA Lopez Primary Care Provider MD Jabari Carpenter Attending Provider Allergies Allergy Classification Reported Allergen(s) Allergy Type Date of Onset Reaction(s) Facility Penicillins (antibiotic) (7 sources) Penicillins Drug Allergy 1 [facility] (2 sources) Penicillins Propensity to adverse reactions to drug 1 [facility] [place] (3 sources) Penicillin G Drug Allergy throat swelling [facility] Other (1 source) Penicillin Drug Allergy 3 [facility] Repository Medications Current Medications Medication Drug Class(es) [...] Antinuclear Abs, IFA Positive Critically abnormal . [facility] Comment on above: Result Comment: Nega tive <1:80 Borderline 1:80 Positive >1:80 Performed By: #### E SR, CBC, CRP, CK, CMP #### [facility] [address] [place] [address] #### NEREYDA, ALDOLASE #### [facility] , Homogeneous Pattern 1:320 High . [facility] Comment on above: Result Comment: ICAP nomenclature: [id number] Performed By: #### E SR, CBC, CRP, CK, CMP #### [facility] [address] [place] [address] [place] #### NEREYDA, ALDOLASE #### [facility] , Note 1 Normal . [facility] Comment on above: Result Comment: Fatoumata johnson Potential Disease Association Homogeneous Systemic Lupus Erythematosus, Drug Induced Systemic Lupus Erythematosus, Chronic Autoimmune hepatitis, Juvenile Idiopathic Arthritis Speckled Sjogren Syndrome, Systemic Lupus Erythematosus, Subacute Cutaneous Lupus, Lupus, Congenital Heart Block, Mixed Connective Tissue Disease, Scleroderma-diffuse, Scleroderma-Autoimmune Myositis Overlap Syndrome, Systemic Lupus Sdstkupzkiwno-Eeanknvtisi-Bgogsgehbe Myositis Overlap Syndrome, Systemic Autoimmune Rheumatic Disease, [...] Scleroderma, Antiphospholipid Syndrome Performed at: - [facility] [address] [id number] [employer] R[employer]: Van Newman PhD, Phone: [phone] PERFORMED BY: [place] [address] PATHOLOGIST RIVET HEATER SANTY BLACKWELL M.D. Performed By: #### E SR, CBC, CRP, CK, CMP #### [facility] [address] [place] [address] [place] #### NEREYDA, ALDOLASE #### [facility] , Alanine aminotransferase [En zymatic activity/volume] in Serum or PlasmaOrdered By: Jabari Carpenter on 06-17-2023 ALT [Catalytic activity/Vol] 13 U/L 7-52 [facility] Albumin [Mass/volume] in Ser um or Plasma by Bromocresol green (BCG) dye binding methoOrdered By: Jabari Carpenter on 06-17-2023 Albumin BCG dye [Mass/Vol] 4.5 g/dL 3.5-5.7 [facility] Aldolaseon 06-17-2023 Aldolase 2.8 U/L Low 3.3-10.3 [facility] Comment on above: Result Comment: Perf ormed at: - [facility] [address] [id number] [employer]: Van Newman PhD, Phone: [phone] PERFORMED BY: [place] [address] PATHOLOGIST [employer] HEATER SANTY BLACKWELL M.D. Performed By: #### E SR, CBC, CRP, CK, CMP #### [address] #### NEREYDA, ALDOLASE #### [facility] , Alkaline phosphatase [Enzyma tic activity/volume] in Serum or PlasmaOrdered By: Jabari Carpenter on 06-17-2023 ALP [Catalytic activity/Vol] 37 U/L 34-104 [facility] Aspartate aminotransferase [ Enzymatic activity/volume] in Serum or PlasmaOrdered By: Jabari Carpenter on 06-17-2023 AST [Catalytic activity/Vol] 17 U/L 13-39 [facility] Basophils Auto (Bld) [#/Vol] Ordered By: Jabari Carpenter on 06-17-2023 Basophils (Bld) [#/Vol] 0.0 10*3/uL 0.0-0.2 [facility] Basophils/100 WBC Auto (Bld) Ordered By: Jabari Carpenter on 06-17-2023 Basophils/100 WBC (Bld) 0.5 % . [facility] Bilirubin.total [Mass/volume ] in Serum or PlasmaOrdered By: Jabari Carpenter on 06-17-2023 Bilirubin [Mass/Vol] 0.4 mg/dL 0.3-1.0 [facility] C reactive protein [Mass/vol ume] in Serum or PlasmaOrdered By: Jabari Carpenter on 06-17-2023 CRP [Mass/Vol] < 0.5 mg/dL 0.0-0.5 [facility] C-Reactive Proteinon 024 CRP [Mass/Vol] mg/L Normal 0.0-0.5 [facility] Comment on above: Result Comment: PERF ORMED BY: [place] [address] PATHOLOGIST RIV[employer] HEATER SANTY BLACKWELL M.D. Performed By: #### E SR, CBC, CRP, CK, CMP #### [place] [address] [place] #### NEREYDA, ALDOLASE #### [facility] , CT biopsyOrdered By: Jabari Carpenter on 06-17-2023 CT biopsy 2.8 U/L 3.3-10.3 [facility] Comment on above: Performed at: [place] [id number] Director: Van Newman PhD, Phone: [phone] Calcium [Mass/volume] in Ser um or PlasmaOrdered By: Jabari Carpenter on 06-17-2023 Calcium [Mass/Vol] 9.2 mg/dL 8.6-10.3 [facility] Carbon dioxide, total [Moles /volume] in Serum or PlasmaOrdered By: Jabari Carpenter on 06-17-2023 CO2 [Moles/Vol] 28.3 mmol/L 21.0-31.[address] [facility] Chloride [Moles/volume] in S mily or PlasmaOrdered By: Jabari Carpenter on 06-17-2023 Chloride [Moles/Vol] 105 mmol/L 98-107 [facility] Complete Blood Count Auto Di ffon 06-17-2023 Basophils (Bld) [#/Vol] 0.0 10*3/uL Normal 0.0-0.2 [facility] Comment on above: Performed By: #### E SR, CBC, CRP, CK, CMP #### [facility] [address] [place] [address] [place] #### NEREYDA, ALDOLASE #### [facility] , Basophils/100 WBC (Bld) 0.5 % Normal . [facility] Comment on above: Performed By: #### E SR, CBC, CRP, CK, CMP #### [address] #### NEREYDA, ALDOLASE #### [facility] , Eosinophils (Bld) [#/Vol] 0.0 10*3/uL Normal 0.0-0.45 [facility] Comment on above: Performed By: #### E SR, CBC, CRP, CK, CMP #### [facility] [address] [place] [address] #### NEREYDA, ALDOLASE #### [facility] , Eosinophils/100 WBC (Bld) 1.2 % Normal . [facility] Comment on above: Performed By: #### E SR, CBC, CRP, CK, CMP #### [address] #### NEREYDA, ALDOLASE #### [facility] , Erythrocyte distribution width (RBC) [Ratio] 13.0 % Normal 11.9-15.3 [facility] Comment on above: Performed By: #### E SR, CBC, CRP, CK, CMP #### [place] [address] [place] #### NEREYDA, ALDOLASE #### [facility] , Hematocrit (Bld) [Volume fraction] 41.5 % Normal 34.0-46.4 [facility] Comment on above: Performed By: #### E SR, CBC, CRP, CK, CMP #### [place] [address] [place] #### NEREYDA, ALDOLASE #### [facility] , Hemoglobin (Bld) [Mass/Vol] 13.9 g/dL Normal 11.8-15.4 [facility] Comment on above: Performed By: #### E SR, CBC, CRP, CK, CMP #### [address] #### NEREYDA, ALDOLASE #### [facility] , Lymphocytes (Bld) [#/Vol] 1.3 10*3/uL Normal 1.00-4.8 [facility] Comment on above: Performed By: #### E SR, CBC, CRP, CK, CMP #### [address] #### NEREYDA, ALDOLASE #### [facility] , Lymphocytes/100 WBC (Bld) 31.0 % Normal . [facility] Comment on above: Performed By: #### E SR, CBC, CRP, CK, CMP #### [address] #### NEREYDA, ALDOLASE #### [facility] , MCH (RBC) [Entitic mass] 30.0 pg Normal 24.7-34.3 [facility] Comment on above: Performed By: #### E SR, CBC, CRP, CK, CMP #### [address] #### NEREYDA, ALDOLASE #### [facility] , MCV (RBC) [Entitic vol] 89.3 fL Normal 80-100 [facility] Comment on above: Performed By: #### E SR, CBC, CRP, CK, CMP #### [place] [address] [place] #### NEREYDA, ALDOLASE #### [facility] , Mean Corpuscular HGB Conc 33.6 g/dL Normal 32.0-35.0 [facility] Comment on above: Performed By: #### E SR, CBC, CRP, CK, CMP #### [place] [address] [place] #### NEREYDA, ALDOLASE #### [facility] , Monocytes (Bld) [#/Vol] 0.3 10*3/uL Normal 0.0-0.8 [facility] Comment on above: Performed By: #### E SR, CBC, CRP, CK, CMP #### [place] [address] [place] #### NEREYDA, ALDOLASE #### [facility] , Monocytes/100 WBC (Bld) 7.3 % Normal . [facility] Comment on above: Performed By: #### E SR, CBC, CRP, CK, CMP #### [address] #### NEREYDA, ALDOLASE #### [facility] , Neutrophils (Bld) [#/Vol] 2.4 10*3/uL Normal 1.8-7.7 [facility] Comment on above: Performed By: #### E SR, CBC, CRP, CK, CMP #### [address] #### NEREYDA, ALDOLASE #### [facility] , Neutrophils/100 WBC (Bld) 60.0 % Normal . [facility] Comment on above: Performed By: #### E SR, CBC, CRP, CK, CMP #### [place] [address] [place] #### NEREYDA, ALDOLASE #### [facility] , NRBC% 0.3 /100{WBC} Normal 0-0.5 [facility] Comment on above: Performed By: #### E SR, CBC, CRP, CK, CMP #### [place] [address] [place] #### NEREYDA, ALDOLASE #### [facility] , Platelet mean volume (Bld) [Entitic vol] 8.1 fL Normal 6.3-10.7 [facility] Comment on above: Performed By: #### E SR, CBC, CRP, CK, CMP #### [facility] [address] [place] [address] #### NEREYDA, ALDOLASE #### [facility] , Platelets (Bld) [#/Vol] 240 10*3/uL Normal 150-450 [facility] Comment on above: Performed By: #### E SR, CBC, CRP, CK, CMP #### [place] [address] [place] #### NEREYDA, ALDOLASE #### [facility] , RBC (Bld) [#/Vol] 4.65 10*6/uL Normal 3.60-5.00 [facility] Comment on above: Performed By: #### E SR, CBC, CRP, CK, CMP #### [address] #### NEREYDA, ALDOLASE #### [facility] , WBC (Bld) [#/Vol] 4.1 10*3/uL Normal 3.8-11.6 [facility] Comment on above: Performed By: #### E SR, CBC, CRP, CK, CMP #### [facility] [address] [place] [address] [place] #### NEREYDA, ALDOLASE #### [facility] , Comprehensive Metabolic Pane monique 06-17-2023 Albumin [Mass/Vol] 4.5 g/dL Normal 3.5-5.7 [facility] Comment on above: Performed By: #### E SR, CBC, CRP, CK, CMP #### [place] [address] [place] #### NEREYDA, ALDOLASE #### [facility] , Albumin/Globulin [Mass ratio] 1.6 {ratio} Normal [facility] Comment on above: Performed By: #### E SR, CBC, CRP, CK, CMP #### [facility] [address] [place] [address] #### NEREYDA, ALDOLASE #### [facility] , ALP [Catalytic activity/Vol] 37 U/L Normal 34-104 [facility] Comment on above: Performed By: #### E SR, CBC, CRP, CK, CMP #### [facility] [address] [place] [address] #### NEREYDA, ALDOLASE #### [facility] , ALT [Catalytic activity/Vol] 13 U/L Normal 7-52 [facility] Comment on above: Performed By: #### E SR, CBC, CRP, CK, CMP #### [facility] [address] [place] [address] #### NEREYDA, ALDOLASE #### [facility] , Anion gap [Moles/Vol] 10.2 mmol/L Normal 6.0-15.0 [facility] Comment on above: Performed By: #### E SR, CBC, CRP, CK, CMP #### [facility] [address] [place] [address] #### NEREYDA, ALDOLASE #### [facility] , AST [Catalytic activity/Vol] 17 U/L Normal 13-39 [facility] Comment on above: Performed By: #### E SR, CBC, CRP, CK, CMP #### [facility] [address] [place] [address] [place] #### NEREYDA, ALDOLASE #### [facility] , Bilirubin [Mass/Vol] 0.4 mg/dL Normal 0.3-1.0 [facility] Comment on above: Performed By: #### E SR, CBC, CRP, CK, CMP #### [facility] [address] [place] [address] [place] #### NEREYDA, ALDOLASE #### [facility] , Calcium [Mass/Vol] 9.2 mg/dL Normal 8.6-10.3 [facility] Comment on above: Performed By: #### E SR, CBC, CRP, CK, CMP #### [facility] [address] [place] [address] [place] #### NEREYDA, ALDOLASE #### [facility] , Chloride [Moles/Vol] 105 mmol/L Normal 98-107 [facility] Comment on above: Performed By: #### E SR, CBC, CRP, CK, CMP #### [facility] [address] [place] [address] [place] #### NEREYDA, ALDOLASE #### [facility] , CO2 [Moles/Vol] 28.3 mmol/L Normal 21.0-31.[address] [facility] Comment on above: Performed By: #### E SR, CBC, CRP, CK, CMP #### [facility] [address] [place] [address] [place] #### NEREYDA, ALDOLASE #### [facility] , Creatinine [Mass/Vol] 0.69 mg/dL Normal 0.60-1.20 [facility] Comment on above: Performed By: #### E SR, CBC, CRP, CK, CMP #### [place] [address] [place] #### NEREYDA, ALDOLASE #### [facility] , GFR/1.73 sq M.predicted MDRD (S/P/Bld) [Vol rate/Area] mL/min/{1.73_m2} Normal [facility] Comment on above: Performed By: #### E SR, CBC, CRP, CK, CMP #### [facility] [address] [place] [address] [place] #### NEREYDA, ALDOLASE #### [facility] , Globulin (S) [Mass/Vol] 2.9 g/dL Normal [facility] Comment on above: Performed By: #### E SR, CBC, CRP, CK, CMP #### [place] [address] [place] #### NEREYDA, ALDOLASE #### [facility] , Glucose [Mass/Vol] 84 mg/dL Normal 70-100 [facility] Comment on above: Result Comment: [facility] Glucose Reference Range is dependent on time and content of last meal. Glucose of more than 200 mg/dL in a nonstressed, ambulatory subject supports the diagnosis of Diabetes Mellitus. ADA recommended reference range Performed By: #### E SR, CBC, CRP, CK, CMP #### [address] #### NEREYDA, ALDOLASE #### [facility] , Potassium [Moles/Vol] 4.5 mmol/L Normal 3.5-5.1 [facility] Comment on above: Performed By: #### E SR, CBC, CRP, CK, CMP #### [place] [address] [place] #### NEREYDA, ALDOLASE #### [facility] , Protein [Mass/Vol] 7.4 g/dL Normal 6.4-8.9 [facility] Comment on above: Performed By: #### E SR, CBC, CRP, CK, CMP #### [address] #### NEREYDA, ALDOLASE #### [facility] , Sodium [Moles/Vol] 139 mmol/L Normal 136-145 [facility] Comment on above: Performed By: #### E SR, CBC, CRP, CK, CMP #### [place] [address] [place] #### NEREYDA, ALDOLASE #### [facility] , Urea nitrogen [Mass/Vol] 10 mg/dL Normal 7-25 [facility] Comment on above: Performed By: #### E SR, CBC, CRP, CK, CMP #### [address] [place] [address] [place] #### NEREYDA, ALDOLASE #### [facility] , Creatine Kinaseon 06-17-2023 CK [Catalytic activity/Vol] 79 U/L Normal 30-223 [facility] Comment on above: Result Comment: PERF ORMED BY: [place] [address] PATHOLOGIST [employer] HE[employer] SANTY BLACKWELL M.D. Performed By: #### E SR, CBC, CRP, CK, CMP #### [address] #### NEREYDA, ALDOLASE #### [facility] , Creatine kinase [Enzymatic a ctivity/volume] in Serum or PlasmaOrdered By: Jabari Carpenter on 06-17-2023 CK [Catalytic activity/Vol] 79 U/L 30- [facility] Creatinine [Mass/volume] in Serum or PlasmaOrdered By: Jabari Carpenter on 06-17-2023 Creatinine [Mass/Vol] 0.69 mg/dL 0.60-1.20 [facility] Eosinophils Auto (Bld) [#/Vo l]Ordered By: Jabari Carpenter on 06-17-2023 Eosinophils (Bld) [#/Vol] 0.0 10*3/uL 0.0-0.45 [facility] Eosinophils/100 WBC Auto (Bl d)Ordered By: Jabari Carpenter on 06-17-2023 Eosinophils/100 WBC (Bld) 1.2 % . [facility] Erythrocyte Sedimentation Ra nato 06-17-2023 ESR (Bld) [Velocity] 22 mm/h High 0-19 [facility] Comment on above: Result Comment: PERF ORMED BY: [place] [address] PATHOLOGIST [employer] HE[employer] SANTY BLACKWELL M.D. Performed By: #### E SR, CBC, CRP, CK, CMP #### [place] [address] [place] #### NEREYDA, ALDOLASE #### [facility] , Erythrocyte distribution wid th Auto (RBC) [Ratio]Ordered By: Jabari Carpenter on 06-17-2023 Erythrocyte distribution width (RBC) [Ratio] 13.0 % 11.9-15.3 [facility] Erythrocyte sedimentation ra te by Photometric methodOrdered By: Jabari Carpenter on 06-17-2023 ESR Photometric method (Bld) [Velocity] 22 mm/hr 0-19 [facility] Globulin Calc (S) [Mass/Vol] Ordered By: Jabari Carpenter on 06-17-2023 Globulin (S) [Mass/Vol] 2.9 g/dL [facility] Glucose [Mass/volume] in Ser um or PlasmaOrdered By: Jabari Carpenter on 06-17-2023 Glucose [Mass/Vol] 84 mg/dL 70-100 [facility] Comment on above: ADA recommended refe rence rangeRandom Glucose Reference Range is dependent on time and content of last meal. Glucose of more than 200 mg/dL in a nonstressed, ambulatory subject supports the diagnosis of Diabetes Mellitus. Hematocrit Auto (Bld) [Volum e fraction]Ordered By: Jabari Carpenter on 06-17-2023 Hematocrit (Bld) [Volume fraction] 41.5 % 34.0-46.4 [facility] Hemoglobin [Mass/volume] in BloodOrdered By: Jabari Carpenter on 06-17-2023 Hemoglobin (Bld) [Mass/Vol] 13.9 g/dL 11.8-15.4 [facility] Leukocytes [#/volume] correc juliano for nucleated erythrocytes in Blood by Automated counOrdered By: Jabari Carpenter on 06-17-2023 WBC corrected for nucl RBC Auto (Bld) [#/Vol] 4.1 10*3/uL 3.8-11.6 [facility] Lymphocytes Auto (Bld) [#/Vo l]Ordered By: Jabari Carpenter on 06-17-2023 Lymphocytes (Bld) [#/Vol] 1.3 10*3/uL 1.00-4.8 [facility] Lymphocytes/100 WBC Auto (Bl d)Ordered By: Jabari Carpenter on 06-17-2023 Lymphocytes/100 WBC (Bld) 31.0 % . [facility] MCH Auto (RBC) [Entitic mass ]Ordered By: Jabari Carpenter on 06-17-2023 MCH (RBC) [Entitic mass] 30.0 pg 24.7-34.3 [facility] MCHC Auto (RBC) [Mass/Vol]Or dered By: Jabari Carpenter on 06-17-2023 MCHC (RBC) [Mass/Vol] 33.6 g/dL 32.0-35.0 [facility] MCV Auto (RBC) [Entitic vol] Ordered By: Jabari Carpenter on 06-17-2023 MCV (RBC) [Entitic vol] 89.3 fL 80-100 [facility] Monocytes Auto (Bld) [#/Vol] Ordered By: Jabari Carpenter on 06-17-2023 Monocytes (Bld) [#/Vol] 0.3 10*3/uL 0.0-0.8 [facility] Monocytes/100 WBC Auto (Bld) Ordered By: Jabari Carpenter on 06-17-2023 Monocytes/100 WBC (Bld) 7.3 % . [facility] Neutrophils Auto (Bld) [#/Vo l]Ordered By: Jabari Carpenter on 06-17-2023 Neutrophils (Bld) [#/Vol] 2.4 10*3/uL 1.8-7.7 [facility] Neutrophils/100 WBC Auto (Bl d)Ordered By: Jabari Carpenter on 06-17-2023 Neutrophils/100 WBC (Bld) 60.0 % . [facility] No Panel InformationOrdered By: Jabari Carpenter on 06-17-2023 Anti-Nuclear Antibody Comment 2 See comment . [facility] Comment on above: Pattern Potential Di sease Association Homogeneous Systemic Lupus Erythematosus, Drug Induced Systemic Lupus Erythematosus, Chronic Autoimmune hepatitis, Juvenile Idiopathic Arthritis Speckled Sjogren Syndrome, Systemic Lupus Erythematosus, Subacute Cutaneous Lupus, Lupus, Congenital Heart Block, Mixed Connective Tissue Disease, Scleroderma-diffuse, Scleroderma-Autoimmune Myositis Overlap Syndrome, Systemic Lupus Azlwghxpwelda-Orauktvxdsp-Gxexnbofnt Myositis Overlap Syndrome, Systemic Autoimmune Rheumatic Disease, [...] Cytopenias, Linear Scleroderma, Antiphospholipid Syndrome Performed at: [facility] [place], [place] [id number] Director: Van Newman PhD, Phone: [phone] Estimated GFR (CKD-EPI) > 60.0 mL/Min [facility] Creatinine Clearance (Chem N/A [facility] Nucleated erythrocytes [Pres ence] in Blood by Automated countOrdered By: Jabari Carpenter on 06-17-2023 Nucleated RBC Auto Ql (Bld) 0.3 /100{WBC} 0-0.5 [facility] Platelet mean volume Auto (B ld) [Entitic vol]Ordered By: Jabari Carpenter on 06-17-2023 Platelet mean volume (Bld) [Entitic vol] 8.1 fL 6.3-10.7 [facility] Platelets Auto (Bld) [#/Vol] Ordered By: Jabari Carpenter on 06-17-2023 Platelets (Bld) [#/Vol] 240 10*3/uL 150-450 [facility] Potassium [Moles/volume] in Serum or PlasmaOrdered By: Jabari Carpenter on 06-17-2023 Potassium [Moles/Vol] 4.5 mmol/L 3.5-5.1 [facility] Protein [Mass/volume] in Ser um or PlasmaOrdered By: Jabari Carpenter on 06-17-2023 Protein [Mass/Vol] 7.4 g/dL 6.4-8.9 [facility] RBC Auto (Bld) [#/Vol]Ordere d By: Jabari Carpenter on 06-17-2023 RBC (Bld) [#/Vol] 4.65 10*6/uL 3.60-5.00 [facility] Serum homogeneous pattern an tinuclear antibody (NEREYDA) titerOrdered By: Jabari Carpenter on 06-17-2023 Homogenous nuclear Ab pattern (S) [Titer] 1:320 . [facility] Comment on above: ICAP nomenclature: A C-1 Serum nuclear antibody titer Ordered By: Jabari Carpenter on 06-17-2023 Nuclear Ab (S) [Titer] Positive . [facility] Comment on above: Negative <1:80 Borde rline 1:80 Positive >1:80 Serum or plasma albumin/glob ulin mass ratioOrdered By: Jabari Carpenter on 06-17-2023 Albumin/Globulin [Mass ratio] 1.6 {ratio} [facility] Serum or plasma anion gap de terminationOrdered By: Jabari Carpenter on 06-17-2023 Anion gap [Moles/Vol] 10.2 mmol/L 6.0-15.0 [facility] Sodium [Moles/volume] in Ser um or PlasmaOrdered By: Jabari Carpenter on 06-17-2023 Sodium [Moles/Vol] 139 mmol/L 136-145 [facility] Urea nitrogen [Mass/volume] in Serum or PlasmaOrdered By: Jabari Carpenter on 06-17-2023 Urea nitrogen [Mass/Vol] 10 mg/dL 7-25 [facility] WBC Auto (Bld) [#/Vol]Ordere d By: Jabari Carpenter on 06-17-2023 WBC (Bld) [#/Vol] 4.1 10*3/uL 3.8-11.6 [facility] Hepatitis A virus Ab [Presen ce] in Serum by Immunoassayon 06-11-2023 HAV Ab IA Ql (S) See comment [facility] Comment on above: SEE SCANNED REPORT Hepatitis B virus surface Ab [Presence] in Serumon 06-11-2023 HBV surface Ab Ql (S) See comment [facility] Comment on above: SEE SCANNED REPORT Hepatitis B virus surface Ag [Presence] in Serum or Plasma by Immunoassayon 06-11-2023 HBV surface Ag IA Ql See comment [facility] Comment on above: SEE SCANNED REPORT Laboratory - Chemistry and C hemistry - challengeon 06-11-2023 Free T4 [Mass/Vol] 0.98 ng/dL 0.76-1.46 [facility] TSH Qn 4.138 m[IU]/L 0.358-3.740 [facility] No Panel Informationon 06-11 Hepatitis B Core Total Antibody See comment [facility] Comment on above: SEE SCANNED REPORT Miscellaneous Test See comment [facility] Comment on above: SEE SCANNED REPORT Quick Strepon 03-21-2022 S. pyogenes Org specific cx Ql (Throat) Negative [facility] Other Quick Strep [facility] Other SARS-CoV-2 (COVID-19) RNA NA A+probe Ql (Resp)on 03-21-2022 SARS-CoV-2 (COVID-19) RNA ANDREA+probe Ql (Unsp spec) Positive [facility] Other HCG, ,Urineon 11-12 Beta HCG ( test) Ql (U) Negative Normal NEG [facility] Comment on above: Result Comment: Spec imens with hCG levels near the threshold of the test (25 mIU/mL) may give a negative or indeterminate result. In such cases, another test should be performed with a new specimen in 48-72 hours. If early is suspected clinically in this setting, correlation with quantitative serum b-hCG level is suggested. [facility] has confirmed the use of plasma for this test. This has not been cleared or approved by the U.S. Food and Drug Administration. The FDA has determined that such clearance is not necessary. Performed By: #### U HCG #### [address] [place] [address] [employer]: Imtiaz Monet MD Hemoglobin and Hematocriton 11-12-2021 Hematocrit (Bld) [Volume fraction] 37.6 % 36.3 - 47.1 % [facility] Hemoglobin (Bld) [Mass/Vol] 12.5 g/dL 11.9 - 15.1 g/dL [facility] Hgb/Hcton 11-12-2021 Hematocrit (Bld) [Volume fraction] 37.6 % Normal 36.3-47.1 [facility] Comment on above: Performed By: #### H H #### [address] [place] [address] [employer]: Imtiaz Monet MD Hemoglobin (Bld) [Mass/Vol] 12.5 g/dL Normal 11.9-15.1 [facility] Comment on above: Performed By: #### H H #### [address] [place] [address] [employer]: Imtiaz Monet MD , Urineon 2 Beta HCG ( test) Ql (U) Negative NEGATIVE [facility] Comment on above: Specimens with hCG l evels near the threshold of the test (25 mIU/mL) may give a negative or indeterminate result. In such cases, another test should be performed with a new specimen in 48-72 hours. If early is suspected clinically in this setting, correlation with quantitative serum b-hCG level is suggested. [employer] has confirmed the use of plasma for this test. This has not been cleared or approved by the U.S. Food and Drug Administration. The FDA has determined that such clearance is not necessary. [facility] Surgical Pathologyon 022 Surgical Pathology (NOTE) -- [...] fallopian tubes reveals unremarkable appearing cut surfaces. Spooler Operator sections 11c as follows: 1 anterior endomyometrium, 2 posteror endomyometrium, 3 area representative sections of markedly vascularized myometrium, 4 anterior cervix, 5 posterior cervix, 6-8 area representative left fallopian tube, 9-11 area representative right fallopian tube. tm Microscopic Description Microscopic examination performed. SURGICAL PATHOLOGY CONSULTATION Patient Name: DALE SANCHEZ [facility] Rec: [id number] Path Number: [id number] [facility] CONSULTING PATHOLOGISTS [facility] ANATOMIC PATHOLOGY [address] [place] [id number] [facility] Comment on above: Performed By: #### P PPVS #### [facility] [address] [place], [place] [address] [employer]: Uri Rangel MD US PELVIS COMPLETE NON-OB [...] Chai Hendrickson Jr., 07/03/21 Final result Normal [facility] Thyroxine T4on 12-06-2020 T4 [Mass/Vol] 6.9 ug/dL Normal 4.5-10.9 [facility] Comment on above: Performed By: #### T 4 #### [facility] [employer] [address] [place] [address] [employer]: Uri Rangel MD #### TSH #### [facility] [address] [place] [address] [employer]: Imtiaz Monet MD [id number] By: Wong cortez on 12-05-2020 T4 [Mass/Vol] 6.9 ug/dL 4.5 -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
== END 2023-11-19 15:20 | disposition home or self-care (01) ==
LOC: LAB 15:19
PROVIDERS: PCP Nurse Practitioner Family; Visit Provider Nurse Practitioner Family
DX: R19.7 Diarrhea, unspecified (principal)
CPT/HCPCS: 87045; 87046; 87177; 87209; 87427; 87493; 87507

== ENCOUNTER 2024-07-13 15:06 | Outpatient (OUT) | payer OTHER, SELFPAY | END 2024-07-13 15:07 | disposition home or self-care (01) | LOC: CARD 15:07 | PROVIDERS: PCP Nurse Practitioner Family; Visit Provider Nurse Practitioner Family | DX: Z00.00 Encounter for general adult medical examination without abnormal findings (principal); R00.2 Palpitations; E03.9 Hypothyroidism, unspecified | CPT/HCPCS: 93242 ==

== ENCOUNTER 2024-07-24 10:20 | Outpatient (OUT) | payer OTHER, SELFPAY ==
--- OUTSIDE RECORDS SUMMARY | 2024-07-24 10:23 | XMS_ITS | CCD ---
Author Organization [facility] Care Team Providers Care Research Associate Quality Control Qc Name Role Phone House DO, Sr Simeon Casas Primary Care Provider [phone] Unavailable Primary Care Physician Unavailab le House DO, Sr Simeon P Primary Care Provider [phone] Wong Cade Primary Care Physician Unavai lable Sawyer DO, Sr Simeon P Primary Care Provider [phone] ROWENA WEI Referring Unavailabl e HOUSE, SR [...] Care Provider MD Jabari Carpenter Attending Provider [phone] Allergies Allergy Classification Reported Allergen(s) Allergy Type Date of Onset Reaction(s) Facility Penicillins (antibiotic) (7 sources) Penicillins Drug Allergy 1 [facility] (2 sources) Penicillins Propensity to adverse reactions to drug 1 [facility] (3 sources) Penicillin G Drug Allergy throat swelling [facility] [employer] Other (1 source) Penicillin Drug Allergy 3 [facility] Repository Medications Current Medications Medication Drug [...] Active levothyroxine sodium 0.1 mg oral tablet (20 sources) l-Thyroxine Start: 07-16-2023 End: 07-06-2024 take 1 tablet by mouth once daily Levothyroxine 100 mcg tablet Active 100 MCG PO Daily 90 90 July 06, 2024 7:45am Start: 11-21-2020 take 1 tablet by moncho [...] dium Active take 1 capsule by mo [facility] once daily levothyroxine 175 mcg capsule take [...] Start: 11-12-2021 ondansetron (ZOFRAN) injection 4 mg sertraline 25 mg oral tablet (1 source) Serotonin Reuptake Inhibitor Start: 07-06-2024 take 1 tablet by mouth once daily Sertraline 25 mg tablet Active 25 MG PO Daily July 06, 2024 12:00am 5 ml sodium chloride 9 mg/ml injection [...] 5-40 mL tiZANidine 2 mg oral tablet (3 sources) Central alpha-2 Adrenergic Agonist Start: 06-13-2023 take 1 tablet by mouth three times daily as needed Tizanidine 2 mg tablet Active 2 MG PO Three times daily as needed for muscle spasticity 10 02June 13, 2023 1:00am Completed/Discontinued Medications [...] Date Documented Da te Episodic/Chronic Abdominal pain (3 sources) Abdominal pain; Translations: [Unspecified abdominal pain] 11-14-2023 Episodic Anxiety disorders (2 sources) Anxiety; Translations: [Anxiety disorder, unspecified] 07-06-2024 Chronic Cardiac dysrhythmias (3 sources) Palpitations; Translations: [Palpitations] Episodic Conditions associated with dizziness or vertigo (1 source) Dizziness and giddiness Episodic Immunizations and screening for infectious disease (6 sources) Exposure to Hepatitis B virus; Translations: [Contact with and (suspected) exposure to viral hepatitis] 06-11-2023 Episodic Malaise and fatigue (3 sources) Fatigue; Translations: [Chronic fatigue, unspecified] Chronic Menstrual disorders (3 sources) Irregular periods; Translations: [Irregular menstruation, unspecified] Chronic Mood disorders (4 sources) Major depressive affective disorder, single episode, unspecified; Translations: [Depressive disorder] 07-06-2024 Chronic Osteoarthritis (1 source) Unspecified osteoarthritis, unspecified site; Translations: [Unspecified osteoarthritis, unspecified site] Onset: 06-17-2023 Chronic Other female genital disorders (1 source) Pelvic congestion syndrome; Translations: [Other specified conditions associated with female genital organs and menstrual cycle] Episodic Other gastrointestinal disorders (2 sources) Diarrhea; Translations: [Diarrhea, unspecified] 11-14-2023 Episodic Other [...] and subcutaneous tissue Episodic Superficial injury; contusion (3 sources) Contusion of left foot; Translations: [Contusion of left foot, initial encounter] 09-02-2023 Episodic Thyroid disorders (18 sources) Hyperthyroidism; Translations: [Thyrotoxicosis without mention of [...] Antinuclear Abs, IFA Positive Critically abnormal . [facility] Comment on above: Result Comment: Nega tive <1:80 Borderline 1:80 Positive >1:80 Performed By: #### E SR, CBC, CRP, CK, CMP #### [facility] [address] [place] [address] #### NEREYDA, ALDOLASE #### [facility] , Homogeneous Pattern 1:320 High . [facility] Comment on above: Result Comment: ICAP nomenclature: [id number] Performed By: #### E SR, CBC, CRP, CK, CMP #### [facility] [address] [place] [address] #### NEREYDA, ALDOLASE #### [facility] , Note 1 Normal . [facility] Comment on above: Result Comment: Fatoumata johnson Potential Disease Association Homogeneous Systemic Lupus Erythematosus, Drug Induced Systemic Lupus Erythematosus, Chronic Autoimmune hepatitis, Juvenile Idiopathic Arthritis Speckled Sjogren Syndrome, Systemic Lupus Erythematosus, Subacute Cutaneous Lupus, Lupus, Congenital Heart Block, Mixed Connective Tissue Disease, Scleroderma-diffuse, Scleroderma-Autoimmune Myositis Overlap Syndrome, Systemic Lupus Dgabrdkgdagxo-Uapvsemujdt-Iwdrdosbzx Myositis Overlap Syndrome, Systemic Autoimmune Rheumatic Disease, [...] Cytopenias, Linear Scleroderma, Antiphospholipid Syndrome Performed at: [facility] [address] [place] [id number] Police Inspector: Van Newman PhD, Phone: [phone] PERFORMED BY: [place] [address] PATHOLOGIST RELEASE AND TECHNICAL RECORDS CLERK SANTY BLACKWELL M.D. Performed By: #### E SR, CBC, CRP, CK, CMP #### [address] #### NEREYDA, ALDOLASE #### [facility] , Alanine aminotransferase [En zymatic activity/volume] in Serum or PlasmaOrdered By: Jabari Carpenter on 06-17-2023 ALT [Catalytic activity/Vol] 13 U/L 7-52 [facility] Albumin [Mass/volume] in Ser um or Plasma by Bromocresol green (BCG) dye binding methoOrdered By: Jabari Carpenter on 06-17-2023 Albumin BCG dye [Mass/Vol] 4.5 g/dL 3.5-5.7 [facility] Aldolaseon 06-17-2023 Aldolase 2.8 U/L Low 3.3-10.3 [facility] Comment on above: Result Comment: Perf ormed at: - [facility] [place] [address] Police Inspector: Van Newman PhD, Phone: [phone] PERFORMED BY: [place] [address] PATHOLOGIST RELEASE AND TECHNICAL RECORDS CLERK SANTY BLACKWELL M.D. Performed By: #### E SR, CBC, CRP, CK, CMP #### [address] #### NEREYDA, ALDOLASE #### [facility] , Alkaline phosphatase [Enzyma tic activity/volume] in Serum or PlasmaOrdered By: Jabari Carpenter on 06-17-2023 ALP [Catalytic activity/Vol] 37 U/L 34-104 [facility] Aspartate aminotransferase [ Enzymatic activity/volume] in Serum or PlasmaOrdered By: Jabari Carpenter on 06-17-2023 AST [Catalytic activity/Vol] 17 U/L 13-39 [facility] Basophils Auto (Bld) [#/Vol] Ordered By: Jabari Carpenter on 06-17-2023 Basophils (Bld) [#/Vol] 0.0 10*3/uL 0.0-0.2 [facility] Basophils/100 WBC Auto (Bld) Ordered By: Jabari Carpenter on 06-17-2023 Basophils/100 WBC (Bld) 0.5 % . [facility] Bilirubin.total [Mass/volume ] in Serum or PlasmaOrdered By: Jabari Carpenter on 06-17-2023 Bilirubin [Mass/Vol] 0.4 mg/dL 0.3-1.0 [facility] C reactive protein [Mass/vol ume] in Serum or PlasmaOrdered By: Jabari Carpenetr on 06-17-2023 CRP [Mass/Vol] < 0.5 mg/dL 0.0-0.5 [facility] C-Reactive Proteinon 024 CRP [Mass/Vol] mg/L Normal 0.0-0.5 [facility] Comment on above: Result Comment: PERF ORMED BY: [place] [address] PATHOLOGIST RELEASE AND TECHNICAL RECORDS CLERK SANTY BLACKWELL M.D. Performed By: #### E SR, CBC, CRP, CK, CMP #### [address] #### NEREYDA, ALDOLASE #### [facility] , CT biopsyOrdered By: Jabari Carpenter on 06-17-2023 CT biopsy 2.8 U/L 3.3-10.3 [facility] Comment on above: Performed at: [address] [id number] Director: Van Newman PhD, Phone: [phone] Calcium [Mass/volume] in Ser um or PlasmaOrdered By: Jabari Carpenter on 06-17-2023 Calcium [Mass/Vol] 9.2 mg/dL 8.6-10.3 [facility] Carbon dioxide, total [Moles /volume] in Serum or PlasmaOrdered By: Jabari Carpenter on 06-17-2023 CO2 [Moles/Vol] 28.3 mmol/L 21.0-31.[address] [facility] Chloride [Moles/volume] in S mily or PlasmaOrdered By: Jabari Carpenter on 06-17-2023 Chloride [Moles/Vol] 105 mmol/L 98-107 [facility] Complete Blood Count Auto Di ffon 06-17-2023 Basophils (Bld) [#/Vol] 0.0 10*3/uL Normal 0.0-0.2 [facility] Comment on above: Performed By: #### E SR, CBC, CRP, CK, CMP #### [address] #### NEREYDA, ALDOLASE #### [facility] , Basophils/100 WBC (Bld) 0.5 % Normal . [facility] Comment on above: Performed By: #### E SR, CBC, CRP, CK, CMP #### [facility] [address] [place] [address] [place] #### NEREYDA, ALDOLASE #### [facility] , Eosinophils (Bld) [#/Vol] 0.0 10*3/uL Normal 0.0-0.45 [facility] Comment on above: Performed By: #### E SR, CBC, CRP, CK, CMP #### [place] [address] [place] #### NEREYDA, ALDOLASE #### [facility] , Eosinophils/100 WBC (Bld) 1.2 % Normal . [facility] Comment on above: Performed By: #### E SR, CBC, CRP, CK, CMP #### [facility] [address] [place] [address] [place] #### NEREYDA, ALDOLASE #### [facility] , Erythrocyte distribution width (RBC) [Ratio] 13.0 % Normal 11.9-15.3 [facility] Comment on above: Performed By: #### E SR, CBC, CRP, CK, CMP #### [place] [address] [place] #### NEREYDA, ALDOLASE #### [facility] , Hematocrit (Bld) [Volume fraction] 41.5 % Normal 34.0-46.4 [facility] Comment on above: Performed By: #### E SR, CBC, CRP, CK, CMP #### [facility] [address] [place] [address] [place] #### NEREYDA, ALDOLASE #### [facility] , Hemoglobin (Bld) [Mass/Vol] 13.9 g/dL Normal 11.8-15.4 [facility] Comment on above: Performed By: #### E SR, CBC, CRP, CK, CMP #### [address] #### NEREYDA, ALDOLASE #### [facility] , Lymphocytes (Bld) [#/Vol] 1.3 10*3/uL Normal 1.00-4.8 [facility] Comment on above: Performed By: #### E SR, CBC, CRP, CK, CMP #### [address] #### NEREYDA, ALDOLASE #### [facility] , Lymphocytes/100 WBC (Bld) 31.0 % Normal . [facility] Comment on above: Performed By: #### E SR, CBC, CRP, CK, CMP #### [address] #### NEREYDA, ALDOLASE #### [facility] , MCH (RBC) [Entitic mass] 30.0 pg Normal 24.7-34.3 [facility] Comment on above: Performed By: #### E SR, CBC, CRP, CK, CMP #### [place] [address] [place] #### NEREYDA, ALDOLASE #### [facility] , MCV (RBC) [Entitic vol] 89.3 fL Normal 80-100 [facility] Comment on above: Performed By: #### E SR, CBC, CRP, CK, CMP #### [address] #### NEREYDA, ALDOLASE #### [facility] , Mean Corpuscular HGB Conc 33.6 g/dL Normal 32.0-35.0 [facility] Comment on above: Performed By: #### E SR, CBC, CRP, CK, CMP #### [address] #### NEREYDA, ALDOLASE #### [facility] , Monocytes (Bld) [#/Vol] 0.3 10*3/uL Normal 0.0-0.8 [facility] Comment on above: Performed By: #### E SR, CBC, CRP, CK, CMP #### [address] #### NEREYDA, ALDOLASE #### [facility] , Monocytes/100 WBC (Bld) 7.3 % Normal . [facility] Comment on above: Performed By: #### E SR, CBC, CRP, CK, CMP #### [address] #### NEREYDA, ALDOLASE #### [facility] , Neutrophils (Bld) [#/Vol] 2.4 10*3/uL Normal 1.8-7.7 [facility] Comment on above: Performed By: #### E SR, CBC, CRP, CK, CMP #### [facility] [address] [place] [address] [place] #### NEREYDA, ALDOLASE #### [facility] , Neutrophils/100 WBC (Bld) 60.0 % Normal . [facility] Comment on above: Performed By: #### E SR, CBC, CRP, CK, CMP #### [address] [place] [address] [place] #### NEREYDA, ALDOLASE #### [facility] , NRBC% 0.3 /100{WBC} Normal 0-0.5 [facility] Comment on above: Performed By: #### E SR, CBC, CRP, CK, CMP #### [facility] [address] [place] [address] #### NEREYDA, ALDOLASE #### [facility] , Platelet mean volume (Bld) [Entitic vol] 8.1 fL Normal 6.3-10.7 [facility] Comment on above: Performed By: #### E SR, CBC, CRP, CK, CMP #### [facility] [address] [place] [address] #### NEREYDA, ALDOLASE #### [facility] , Platelets (Bld) [#/Vol] 240 10*3/uL Normal 150-450 [facility] Comment on above: Performed By: #### E SR, CBC, CRP, CK, CMP #### [facility] [address] [place] [address] #### NEREYDA, ALDOLASE #### [facility] , RBC (Bld) [#/Vol] 4.65 10*6/uL Normal 3.60-5.00 [facility] Comment on above: Performed By: #### E SR, CBC, CRP, CK, CMP #### [facility] [address] [place] [address] #### NEREYDA, ALDOLASE #### [facility] , WBC (Bld) [#/Vol] 4.1 10*3/uL Normal 3.8-11.6 [facility] Comment on above: Performed By: #### E SR, CBC, CRP, CK, CMP #### [facility] [address] [place] [address] [place] #### NEREYDA, ALDOLASE #### [facility] , Comprehensive Metabolic Pane monique 06-17-2023 Albumin [Mass/Vol] 4.5 g/dL Normal 3.5-5.7 [facility] Comment on above: Performed By: #### E SR, CBC, CRP, CK, CMP #### [facility] [address] [place] [address] #### NEREYDA, ALDOLASE #### [facility] , Albumin/Globulin [Mass ratio] 1.6 {ratio} Normal [facility] Comment on above: Performed By: #### E SR, CBC, CRP, CK, CMP #### [address] #### NEREYDA, ALDOLASE #### [facility] , ALP [Catalytic activity/Vol] 37 U/L Normal 34-104 [facility] Comment on above: Performed By: #### E SR, CBC, CRP, CK, CMP #### [facility] [address] [place] [address] #### NEREYDA, ALDOLASE #### [facility] , ALT [Catalytic activity/Vol] 13 U/L Normal 7-52 [facility] Comment on above: Performed By: #### E SR, CBC, CRP, CK, CMP #### [address] #### NEREYDA, ALDOLASE #### [facility] , Anion gap [Moles/Vol] 10.2 mmol/L Normal 6.0-15.0 [facility] Comment on above: Performed By: #### E SR, CBC, CRP, CK, CMP #### [facility] [address] [place] [address] [place] #### NEREYDA, ALDOLASE #### [facility] , AST [Catalytic activity/Vol] 17 U/L Normal 13-39 [facility] Comment on above: Performed By: #### E SR, CBC, CRP, CK, CMP #### [facility] [address] [place] [address] [place] #### NEREYDA, ALDOLASE #### [facility] , Bilirubin [Mass/Vol] 0.4 mg/dL Normal 0.3-1.0 [facility] Comment on above: Performed By: #### E SR, CBC, CRP, CK, CMP #### [facility] [address] [place] [address] #### NEREYDA, ALDOLASE #### [facility] , Calcium [Mass/Vol] 9.2 mg/dL Normal 8.6-10.3 [facility] Comment on above: Performed By: #### E SR, CBC, CRP, CK, CMP #### [facility] [address] [place] [address] #### NEREYDA, ALDOLASE #### [facility] , Chloride [Moles/Vol] 105 mmol/L Normal 98-107 [facility] Comment on above: Performed By: #### E SR, CBC, CRP, CK, CMP #### [facility] [address] [place] [address] #### NEREYDA, ALDOLASE #### [facility] , CO2 [Moles/Vol] 28.3 mmol/L Normal 21.0-31.[address] [facility] Comment on above: Performed By: #### E SR, CBC, CRP, CK, CMP #### [facility] [address] [place] [address] [place] #### NEREYDA, ALDOLASE #### [facility] , Creatinine [Mass/Vol] 0.69 mg/dL Normal 0.60-1.20 [facility] Comment on above: Performed By: #### E SR, CBC, CRP, CK, CMP #### [facility] [address] [place] [address] [place] #### NEREYDA, ALDOLASE #### [facility] , GFR/1.73 sq M.predicted MDRD (S/P/Bld) [Vol rate/Area] mL/min/{1.73_m2} Normal [facility] Comment on above: Performed By: #### E SR, CBC, CRP, CK, CMP #### [facility] [address] [place] [address] [place] #### NEREYDA, ALDOLASE #### [facility] , Globulin (S) [Mass/Vol] 2.9 g/dL Normal [facility] Comment on above: Performed By: #### E SR, CBC, CRP, CK, CMP #### [place] [address] [place] #### NEREYDA, ALDOLASE #### [facility] , Glucose [Mass/Vol] 84 mg/dL Normal 70-100 [facility] Comment on above: Result Comment: [facility] Glucose Reference Range is dependent on time and content of last meal. Glucose of more than 200 mg/dL in a nonstressed, ambulatory subject supports the diagnosis of Diabetes Mellitus. ADA recommended reference range Performed By: #### E SR, CBC, CRP, CK, CMP #### [place] [address] [place] #### NEREYDA, ALDOLASE #### [facility] , Potassium [Moles/Vol] 4.5 mmol/L Normal 3.5-5.1 [facility] Comment on above: Performed By: #### E SR, CBC, CRP, CK, CMP #### [facility] [address] [place] [address] [place] #### NEREYDA, ALDOLASE #### [facility] , Protein [Mass/Vol] 7.4 g/dL Normal 6.4-8.9 [facility] Comment on above: Performed By: #### E SR, CBC, CRP, CK, CMP #### [place] [address] [place] #### NEREYDA, ALDOLASE #### [facility] , Sodium [Moles/Vol] 139 mmol/L Normal 136-145 [facility] Comment on above: Performed By: #### E SR, CBC, CRP, CK, CMP #### [facility] [address] [place] [address] [place] #### NEREYDA, ALDOLASE #### [facility] , Urea nitrogen [Mass/Vol] 10 mg/dL Normal 7-25 [facility] Comment on above: Performed By: #### E SR, CBC, CRP, CK, CMP #### [facility] [address] [place] [address] [place] #### NEREYDA, ALDOLASE #### [facility] , Creatine Kinaseon 06-17-2023 CK [Catalytic activity/Vol] 79 U/L Normal [facility] Comment on above: Result Comment: PERF ORMED BY: [place] [address] PATHOLOGIST RELEASE AND TECHNICAL RECORDS CLERK SANTY BLACKWELL M.D. Performed By: #### E SR, CBC, CRP, CK, CMP #### [address] #### NEREYDA, ALDOLASE #### [facility] , Creatine kinase [Enzymatic a ctivity/volume] in Serum or PlasmaOrdered By: Jabari Carpenter on 06-17-2023 CK [Catalytic activity/Vol] 79 U/L 30 [facility] Creatinine [Mass/volume] in Serum or PlasmaOrdered By: Jabari Carpenter on 06-17-2023 Creatinine [Mass/Vol] 0.69 mg/dL 0.60-1.20 [facility] Eosinophils Auto (Bld) [#/Vo l]Ordered By: Jabari Carpenter on 06-17-2023 Eosinophils (Bld) [#/Vol] 0.0 10*3/uL 0.0-0.45 [facility] Eosinophils/100 WBC Auto (Bl d)Ordered By: Jabari Carpenter on 06-17-2023 Eosinophils/100 WBC (Bld) 1.2 % . [facility] Erythrocyte Sedimentation Ra nato 06-17-2023 ESR (Bld) [Velocity] 22 mm/h High 0-19 [facility] Comment on above: Result Comment: PERF ORMED BY: [place] [address] PATHOLOGIST RELEASE AND TECHNICAL RECORDS CLERK SANTY BLACKWELL M.D. Performed By: #### E SR, CBC, CRP, CK, CMP #### [facility] [address] [place] [address] [place] #### NEREYDA, ALDOLASE #### [facility] , Erythrocyte distribution wid th Auto (RBC) [Ratio]Ordered By: Jabari Carpenter on 06-17-2023 Erythrocyte distribution width (RBC) [Ratio] 13.0 % 11.9-15.3 [facility] Erythrocyte sedimentation ra te by Photometric methodOrdered By: Jabari Carpenter on 06-17-2023 ESR Photometric method (Bld) [Velocity] 22 mm/hr 0-19 [facility] Globulin Calc (S) [Mass/Vol] Ordered By: Jabari Carpenter on 06-17-2023 Globulin (S) [Mass/Vol] 2.9 g/dL [facility] Glucose [Mass/volume] in Ser um or PlasmaOrdered By: Jabari Carpenter on 06-17-2023 Glucose [Mass/Vol] 84 mg/dL 70-100 [facility] Comment on above: ADA recommended refe rence rangeRandom Glucose Reference Range is dependent on time and content of last meal. Glucose of more than 200 mg/dL in a nonstressed, ambulatory subject supports the diagnosis of Diabetes Mellitus. Hematocrit Auto (Bld) [Volum e fraction]Ordered By: Jabari Carpetner on 06-17-2023 Hematocrit (Bld) [Volume fraction] 41.5 % 34.0-46.4 [facility] Hemoglobin [Mass/volume] in BloodOrdered By: Jabari Carpenter on 06-17-2023 Hemoglobin (Bld) [Mass/Vol] 13.9 g/dL 11.8-15.4 [facility] Leukocytes [#/volume] correc juliano for nucleated erythrocytes in Blood by Automated counOrdered By: Jabari Carpenter on 06-17-2023 WBC corrected for nucl RBC Auto (Bld) [#/Vol] 4.1 10*3/uL 3.8-11.6 [facility] Lymphocytes Auto (Bld) [#/Vo l]Ordered By: Jabari Carpenter on 06-17-2023 Lymphocytes (Bld) [#/Vol] 1.3 10*3/uL 1.00-4.8 [facility] Lymphocytes/100 WBC Auto (Bl d)Ordered By: Jabari Carpenter on 06-17-2023 Lymphocytes/100 WBC (Bld) 31.0 % . [facility] MCH Auto (RBC) [Entitic mass ]Ordered By: Jabari Carpenter on 06-17-2023 MCH (RBC) [Entitic mass] 30.0 pg 24.7-34.3 [facility] MCHC Auto (RBC) [Mass/Vol]Or dered By: Jabari Carpenter on 06-17-2023 MCHC (RBC) [Mass/Vol] 33.6 g/dL 32.0-35.0 [facility] MCV Auto (RBC) [Entitic vol] Ordered By: Jabari Carpenter on 06-17-2023 MCV (RBC) [Entitic vol] 89.3 fL 80-100 [facility] Monocytes Auto (Bld) [#/Vol] Ordered By: Jabari Carpenter on 06-17-2023 Monocytes (Bld) [#/Vol] 0.3 10*3/uL 0.0-0.8 [facility] Monocytes/100 WBC Auto (Bld) Ordered By: Jabari Carpenter on 06-17-2023 Monocytes/100 WBC (Bld) 7.3 % . [facility] Neutrophils Auto (Bld) [#/Vo l]Ordered By: Jabari Carpenter on 06-17-2023 Neutrophils (Bld) [#/Vol] 2.4 10*3/uL 1.8-7.7 [facility] Neutrophils/100 WBC Auto (Bl d)Ordered By: Jabari Carpenter on 06-17-2023 Neutrophils/100 WBC (Bld) 60.0 % . [facility] No Panel InformationOrdered By: Jabari Carpenter on 06-17-2023 Anti-Nuclear Antibody Comment 2 See comment . [facility] Comment on above: Pattern Potential Di sease Association Homogeneous Systemic Lupus Erythematosus, Drug Induced Systemic Lupus Erythematosus, Chronic Autoimmune hepatitis, Juvenile Idiopathic Arthritis Speckled Sjogren Syndrome, Systemic Lupus Erythematosus, Subacute Cutaneous Lupus, Lupus, Congenital Heart Block, Mixed Connective Tissue Disease, Scleroderma-diffuse, Scleroderma-Autoimmune Myositis Overlap Syndrome, Systemic Lupus Aeqiegumvcigx-Bhvuvsgwinj-Metuuxtlyr Myositis Overlap Syndrome, Systemic Autoimmune Rheumatic Disease, [...] Cytopenias, Linear Scleroderma, Antiphospholipid Syndrome Performed at: [facility] [id number] Director: Van Newman PhD, Phone: [phone] Estimated GFR (CKD-EPI) > 60.0 mL/Min [facility] Creatinine Clearance (Chem N/A [facility] Nucleated erythrocytes [Pres ence] in Blood by Automated countOrdered By: Jabari Carpenter on 06-17-2023 Nucleated RBC Auto Ql (Bld) 0.3 /100{WBC} 0-0.5 [facility] Platelet mean volume Auto (B ld) [Entitic vol]Ordered By: Jabari Carpenter on 06-17-2023 Platelet mean volume (Bld) [Entitic vol] 8.1 fL 6.3-10.7 [facility] Platelets Auto (Bld) [#/Vol] Ordered By: Jabari Carpenter on 06-17-2023 Platelets (Bld) [#/Vol] 240 10*3/uL 150-450 [facility] Potassium [Moles/volume] in Serum or PlasmaOrdered By: Jabari Carpenter on 06-17-2023 Potassium [Moles/Vol] 4.5 mmol/L 3.5-5.1 [facility] Protein [Mass/volume] in Ser um or PlasmaOrdered By: Jabari Carpenter on 06-17-2023 Protein [Mass/Vol] 7.4 g/dL 6.4-8.9 [facility] RBC Auto (Bld) [#/Vol]Ordere d By: Jabari Carpenter on 06-17-2023 RBC (Bld) [#/Vol] 4.65 10*6/uL 3.60-5.00 [facility] Serum homogeneous pattern an tinuclear antibody (NEREYDA) titerOrdered By: Jabari Carpenter on 06-17-2023 Homogenous nuclear Ab pattern (S) [Titer] 1:320 . [facility] Comment on above: ICAP nomenclature: A C-1 Serum nuclear antibody titer Ordered By: Jabari Carpenter on 06-17-2023 Nuclear Ab (S) [Titer] Positive . [facility] Comment on above: Negative <1:80 Borde rline 1:80 Positive >1:80 Serum or plasma albumin/glob ulin mass ratioOrdered By: Jabari Carpenter on 06-17-2023 Albumin/Globulin [Mass ratio] 1.6 {ratio} [facility] Serum or plasma anion gap de terminationOrdered By: Jabari Carpenter on 06-17-2023 Anion gap [Moles/Vol] 10.2 mmol/L 6.0-15.0 [facility] Sodium [Moles/volume] in Ser um or PlasmaOrdered By: Jabari Carpenter on 06-17-2023 Sodium [Moles/Vol] 139 mmol/L 136-145 [facility] Urea nitrogen [Mass/volume] in Serum or PlasmaOrdered By: Jabari Carpenter on 06-17-2023 Urea nitrogen [Mass/Vol] 10 mg/dL 7-25 [facility] WBC Auto (Bld) [#/Vol]Ordere d By: Jabari Carpenter on 06-17-2023 WBC (Bld) [#/Vol] 4.1 10*3/uL 3.8-11.6 [facility] Hepatitis A virus Ab [Presen ce] in Serum by Immunoassayon 06-11-2023 HAV Ab IA Ql (S) See comment [facility] Comment on above: SEE SCANNED REPORT Hepatitis B virus surface Ab [Presence] in Serumon 06-11-2023 HBV surface Ab Ql (S) See comment [facility] Comment on above: SEE SCANNED REPORT Hepatitis B virus surface Ag [Presence] in Serum or Plasma by Immunoassayon 06-11-2023 HBV surface Ag IA Ql See comment [facility] Comment on above: SEE SCANNED REPORT Laboratory - Chemistry and C hemistry - challengeon 06-11-2023 Free T4 [Mass/Vol] 0.98 ng/dL 0.76-1.46 [facility] TSH Qn 4.138 m[IU]/L 0.358-3.740 [facility] No Panel Informationon 06-11 Hepatitis B Core Total Antibody See comment [facility] Comment on above: SEE SCANNED REPORT Miscellaneous Test See comment [facility] Comment on above: SEE SCANNED REPORT Quick Strepon 03-21-2022 S. pyogenes Org specific cx Ql (Throat) Negative [facility] [employer] Other Quick Strep [facility] [employer] Other SARS-CoV-2 (COVID-19) RNA NA A+probe Ql (Resp)on 03-21-2022 SARS-CoV-2 (COVID-19) RNA ANDREA+probe Ql (Unsp spec) Positive [employer] Other HCG, ,Urineon 11-12 Beta HCG ( test) Ql (U) Negative Normal NEG [facility] Comment on above: Result Comment: Spec imens with hCG levels near the threshold of the test (25 mIU/mL) may give a negative or indeterminate result. In such cases, another test should be performed with a new specimen in 48-72 hours. If early is suspected clinically in this setting, correlation with quantitative serum b-hCG level is suggested. [facility] has confirmed the use of plasma for this test. This has not been cleared or approved by the U.S. Food and Drug Administration. The FDA has determined that such clearance is not necessary. Performed By: #### U HCG #### [facility] [address] [place] [address] [place] [address] Police Inspector: Imtiaz Monet MD Hemoglobin and Hematocriton 11-12-2021 Hematocrit (Bld) [Volume fraction] 37.6 % 36.3 - 47.1 % [facility] Hemoglobin (Bld) [Mass/Vol] 12.5 g/dL 11.9 - 15.1 g/dL [facility] Hgb/Hcton 11-12-2021 Hematocrit (Bld) [Volume fraction] 37.6 % Normal 36.3-47.1 [facility] Comment on above: Performed By: #### H H #### [facility] [address] [place] [address] Police Inspector: Imtiaz Monet MD Hemoglobin (Bld) [Mass/Vol] 12.5 g/dL Normal 11.9-15.1 [facility] Comment on above: Performed By: #### H H #### [facility] [address] [place] [address] Police Inspector: Imtiaz Monet MD , Urineon 2 Beta HCG ( test) Ql (U) Negative NEGATIVE [facility] Comment on above: Specimens with hCG l evels near the threshold of the test (25 mIU/mL) may give a negative or indeterminate result. In such cases, another test should be performed with a new specimen in 48-72 hours. If early is suspected clinically in this setting, correlation with quantitative serum b-hCG level is suggested. [facility] has confirmed the use of plasma for this test. This has not been cleared or approved by the U.S. Food and Drug Administration. The FDA has determined that such clearance is not necessary. [facility] Surgical Pathologyon 022 Surgical Pathology (NOTE) -- [...] UTERUS, BILATERAL FALLOPIAN TUBES Gross Description DALE LAURA, CERVIX, UTERUS, BILATERAL FALLOPIAN TUBES 138.2 gram [...] fallopian tubes reveals unremarkable appearing cut surfaces. Behavioral Health Technician sections 11c as follows: 1 anterior endomyometrium, 2 posteror endomyometrium, 3 account service representative sections of markedly vascularized myometrium, 4 anterior cervix, 5 posterior cervix, 6-8 account service representative left fallopian tube, 9-11 account service representative right fallopian tube. tm Microscopic Description Microscopic examination performed. SURGICAL PATHOLOGY CONSULTATION Patient Name: DALE SANCHEZ [facility] Rec: [id number] Path Number: [id number] [facility] [employer] [facility] ANATOMIC PATHOLOGY [address] [place] [id number] [facility] Comment on above: Performed By: #### P PPVS #### [employer] [address] [place] [address] [id number] Police Inspector: Uri Rangel MD US PELVIS COMPLETE NON-OB [...] Hendrickson Jr., DO 07/03/21 Final result Normal [facility] Thyroxine T4on 12-06-2020 T4 [Mass/Vol] 6.9 ug/dL Normal 4.5-10.9 [facility] Comment on above: Performed By: #### T 4 #### [employer] [address] [place], [place] [id number] Police Inspector: Uri Rangel MD #### TSH #### [facility] [address] [place] [address] Police Inspector: Imtiaz Monet MD [id number] By: Wong cortez on 12-05-2020 T4 [Mass/Vol] 6.9 ug/dL 4.5 - 10.9 ug/dL [facility] Phone: [employer] Phone: TSH without ReflexOrdered By : Wong Cade on 12-05-2020 Interpretation and review of laboratory results Abnormal [facility] Phone: TSH Qn 0.12 m[IU]/L Low [employer] Phone: [employer] Phone: Thyroid Stim. Horm.on 2020 TSH Qn 0.12 m[IU]/L Low 0.30-5.00 [facility] Comment on above: Performed By: #### T 4 #### [facility] [address] [place], [place] [id number] Police Inspector: Uri Rangel MD #### TSH #### [facility] [address] [place] [address] Police Inspector: Imtiaz Monet MD NON OB TRANSVAGINALon NON OB TRANSVAGINAL UTERUS:anteverted , homogeneous echo pattern ? ENDO:1.1cm in thickness ? RT. OVARY:seen, wnl ? LT. OVARY:seen, wnl ? Prominent vessels in both adnexal regions with increase in vascularity, ? Vaginal congestion ? Small amount of free fluid visualized in posterior cul-de-sac Interpreted by: Rowena Wei, [employer] - CNM Jaqui Arango DO Signed by: Jaqui Arango DO 11/30/20 Final result Normal [facility] [id number] By: Wong cortez on 10-05-2020 T4 [Mass/Vol] 8.6 ug/dL 4.5 - 10.9 ug/dL [employer] Phone: [employer] Phone: TSH without ReflexOrdered By : Wong Cade on 10-05-2020 Interpretation and review of laboratory results Abnormal [employer] Phone: TSH Qn 0.01 m[IU]/L Low [employer] Phone: [employer] Phone: ALTOrdered By: Wong mccord on 08-25-2020 ALT [Catalytic activity/Vol] 12 U/L 5 - 33 U/L [employer] Phone: CA 125Ordered By: Rowena dale on 08-25-2020 CA 125 15 U/mL <38 [employer] Phone: CBCOrdered By: Wong mccord on 08-25-2020 Hematocrit (Bld) [Volume fraction] 37.7 % 36.3 - 47.1 % [employer] Phone: Hemoglobin.gastrointest inal spec 1 Ql (Stl) 11.8 g/dL Low 11.9 - 15.1 g/dL [employer] Phone: Interpretation and review of laboratory results Abnormal [employer] Phone: MCH (RBC) [Entitic mass] 27.3 pg 25.2 - 33.5 pg [employer] Phone: MCHC (RBC) [Mass/Vol] 31.3 g/dL 28.4 - 34.8 g/dL [employer] Phone: MCV (RBC) [Entitic vol] 87.3 fL 82.6 - 102.9 fL [employer] Phone: NRBC Automated 0.0 0.0 per 100 WBC [employer] Phone: Platelet distribution width (Bld) [Ratio] 13.1 % 11.8 - 14.4 % [employer] Phone: Platelet mean volume (Bld) [Entitic vol] 9.5 fL 8.1 - 13.5 fL [employer] Phone: Platelets (Bld) [#/Vol] 260 10*3/uL [employer] Phone: RBC (Bld) [#/Vol] 4.32 10*6/uL 3.95 - 5.1 1 m/uL [employer] Phone: WBC (Bld) [#/Vol] 6.9 10*3/uL [employer] Phone: CEAOrdered By: Rowena elder 08-25-2020 CEA 1.3 ng/mL <3.9 [employer] Phone: Comment on above: The [place] ECLIA as say is used. Results obtained with different assay methods cannot be used interchangeably. Laboratory - Chemistry and C hemistry - challengeOrdered By: Wong Cade on 08-25-2020 T4 [Mass/Vol] 7.1 ug/dL Invalid Interpretation Code [facility] [employer] Work Phone: Laboratory - Chemistry and C hemistry - challengeon 08-25-2020 ALT [Catalytic activity/Vol] 12.0 U/L Invalid Interpretation Code [employer] T3 [Mass/Vol] 75.0 ng/dL Invalid Interpretation Code [employer] TSH Qn <0.01 L Invalid Interpretation Code [employer] [facility] Laboratory - Hematology and Cell countson 08-25-2020 Erythrocyte distribution width (RBC) [Ratio] 13.10 % Invalid Interpretation Code [employer] ESR (Bld) [Velocity] 18.0 mm/h Invalid Interpretation Code [employer] Hematocrit (Bld) [Volume fraction] 37.70 % Invalid Interpretation Code [employer] [facility] Hemoglobin (Bld) [Mass/Vol] 11.80 g/dL Invalid Interpretation Code [employer] [facility] MCH (RBC) [Entitic mass] 27.30 pg Invalid Interpretation Code [employer] [facility] MCHC (RBC) [Mass/Vol] 31.30 g/dL Invalid Interpretation Code [employer] [facility] MCV (RBC) [Entitic vol] 87.30 fL Invalid Interpretation Code [employer] [facility] Platelets (Bld) [#/Vol] 260.0 10*3/uL Invalid Interpretation Code [employer] RBC (Bld) [#/Vol] 4.320 10*6/uL Invalid Interpretation Code [employer] [facility] WBC (Bld) [#/Vol] 6.90 10*3/uL Invalid Interpretation Code [employer] No Panel Informationon 08-25 ks Invalid Interpretation Code [employer] 0.30 IU/L Invalid Interpretation Code 0 - 0.55 [employer] Sedimentation RateOrdered By : Wong Cade on 08-25-2020 Sed Rate 18 mm 0 - 20 mm [employer] Phone: [id number] By: Wong cortez on 08-25-2020 T3, Total 75 ng/dL 60 - 181 ng/dL [employer] Phone: TSH without ReflexOrdered By : Wong Cade on 08-25-2020 Interpretation and review of laboratory results Abnormal [employer] Phone: TSH Qn m[IU]/L Low [employer] Phone: US NON OB TRANSVAGINALOrdere d By: [...] 08/24/2020to be communicated to a licensed caregiver. [employer] Phone: EXAMINATION: PELVIC ULTRASOUND 08/24/2020 TECHNIQUE: Transvaginal [...] Free Fluid: No evidence of free fluid. [employer] Phone: Anton, [facility] Incoming Radiant Results From [employer] - 08/24/2020 1:58 PM EDT EXAMINATION: PELVIC [...] 08/24/2020to be communicated to a licensed caregiver. [employer] Phone: [employer] Phone: TSH without ReflexOrdered By : Rowena Wei on 08-10-2020 Interpretation and review of laboratory results Abnormal [employer] Phone: TSH Qn 0.02 m[IU]/L Low [employer] Phone: Vital Signs Date Time Vital Sign Value Performing Clinician Facility 07-06-2024 14:53-0400 Body height 173.[address] [facility] 07-06-2024 14:53-0400 Body mass index (BMI) [Ratio] 28.9 kg/m2 [facility] 07-06-2024 14:53-0400 Body temperature 97.2 [degF] [facility] 07-06-2024 14:53-0400 Body weight 87.[address] [facility] 07-06-2024 14:53-0400 Diastolic blood pressure 74 mm[Hg] [facility] 07-06-2024 14:53-0400 Heart rate 78 /min [facility] 07-06-2024 14:53-0400 SaO2% (BldA) [Mass fraction] 99 % [facility] 07-06-2024 14:53-0400 Systolic blood pressure 128 mm[Hg] [facility] 11-14-2023 10:58-0400 Body height 173.[address] [facility] 11-14-2023 10:58-0400 Body mass index (BMI) [Ratio] 29.6 kg/m2 [facility] 11-14-2023 10:58-0400 Body weight 89.[address] [facility] 11-14-2023 10:58-0400 Diastolic blood pressure 60 mm[Hg] [facility] 11-14-2023 10:58-0400 Heart rate 77 /min [facility] 11-14-2023 10:58-0400 SaO2% (BldA) [Mass fraction] 98 % [facility] 11-14-2023 10:58-0400 Systolic blood pressure 98 mm[Hg] [facility] 09-02-2023 14:48-0400 Body height 173.99 cm NEVA Smiley Alexandrakaylyndana Work Phone: [facility] 09-02-2023 14:48-0400 Body mass index (BMI) [Ratio] 30.5 kg/m2 [employer] Smiley Alexandraacher Work Phone: [facility] 09-02-2023 14:48-0400 Body weight 92.53 kg [employer] Smiley Alexandraacher Work Phone: [facility] 09-02-2023 14:48-0400 Diastolic blood pressure 66 mm[Hg] [employer] Smiley lAexandraacher Work Phone: [facility] 09-02-2023 14:48-0400 Heart rate 70 /min [employer] Smiley Alexandraacher Work Phone: [facility] 09-02-2023 14:48-0400 SaO2% (BldA) [Mass fraction] 98 % [employer] Smiley Alexandraacher Work Phone: [facility] 09-02-2023 14:48-0400 Systolic blood pressure 110 mm[Hg] [employer] Smiley Morrisacher Work Phone: [facility] 04-08-2023 09:30-0500 Body height 173.99 cm Smiley Lopez Other [employer] Other 04-08-2023 09:30-0500 Body mass index (BMI) [Ratio] 29.51 kg/m2 Smiley Lopez Other [employer] Other 04-08-2023 09:30-0500 Body weight 89.36 kg Smiley Lopez Other [employer] Other 04-08-2023 09:30-0500 Diastolic blood pressure 76 mm[Hg] Smiley Jessica Other [employer] Other 04-08-2023 09:30-0500 Respiratory rate 17 /min Smiley Jessica Other [employer] Other 04-08-2023 09:30-0500 SaO2% (BldA) [Mass fraction] 99 % Smiley Jessica Other [employer] Other 04-08-2023 09:30-0500 Systolic blood pressure 106 mm[Hg] Smiley Jessica Other [employer] Other 03-21-2022 15:00-0500 Body height 173.99 cm Tammie Hawk Other [employer] Other 03-21-2022 15:00-0500 Body mass index (BMI) [Ratio] 29.22 kg/m2 Tammie Hawk Other [employer] Other 03-21-2022 15:00-0500 Body temperature 98.4 [degF] Tammie Hawk Other [employer] Other 03-21-2022 15:00-0500 Body weight 88.45 kg Tammie Hawk Other [employer] Other 03-21-2022 15:00-0500 Respiratory rate 18 /min Tammie Hawk Other [employer] Other 03-21-2022 15:00-0500 SaO2% (BldA) [Mass fraction] 98 % Tammie Hawk Other [employer] Other 11-12-2021 17:15-0400 Diastolic blood pressure 59 mm[Hg] Jaqui Arango DO Work Phone: [employer] 11-12-2021 17:15-0400 Heart rate 74 /min Jaqui Salehg DO Work Phone: [employer] 11-12-2021 17:15-0400 Respiratory rate 16 /min Jaqui Arango DO Work Phone: [employer] 11-12-2021 17:15-0400 SaO2% (BldA) [Mass fraction] 97 % Jaqui Arango DO Work Phone: [employer] 11-12-2021 17:15-0400 Systolic blood pressure 101 mm[Hg] Jaqui Arango DO Work Phone: [employer] 11-12-2021 14:15-0400 Body temperature 98.1 [degF] Jaqui Arango DO Work Phone: [employer] 11-12-2021 10:01-0400 Body height 174 cm Jaqui Arango DO Work Phone: [employer] 11-12-2021 10:01-0400 Body mass index (BMI) [Ratio] 29.43 kg/m2 Jaqui Arango DO Work Phone: [employer] 11-12-2021 10:01-0400 Body weight 89.09 kg Jaqui Salehg DO Work Phone: [employer] 09-04-2020 12:20-0400 Body height 173.99 cm [employer] 09-04-2020 12:20-0400 Body mass index (BMI) [Ratio] 30.49 kg/m2 [employer] 09-04-2020 12:20-0400 Body surface area Derived from formula 2.11 m2 Wong Cade [employer] 09-04-2020 12:20-0400 Body weight 92.31 kg Wong [employer] 09-04-2020 12:20-0400 Diastolic blood pressure 64 mm[Hg] Wong [employer] [facility] 09-04-2020 12:20-0400 Heart rate 72 /min Wong [employer] 09-04-2020 12:20-0400 Systolic blood pressure 104 mm[Hg] Wong [employer] Encounters Encounter Date Encounter Type Care Provider Facility Start: 07-06-2024 Patient encounter status [facility] Start: 07-06-2024 End: 07-06-2024 ambulatory [facility] Work Phone: Start: 07-06-2024 End: 07-06-2024 Encounter for general adult medical examination without abnormal findings [facility] Start: 07-06-2024 End: 07-06-2024 Patient encounter procedure [facility] Physician [facility] Work Phone: Start: 11-14-2023 End: 11-14-2023 ambulatory [facility] Work Phone: Start: 11-14-2023 End: 11-14-2023 Patient encounter procedure [facility] Physician [facility] Work Phone: Start: 09-02-2023 End: 09-02-2023 ambulatory NEVA Lopez Work Phone: [facility] Work Phone: Start: 09-02-2023 End: 09-02-2023 Patient encounter procedure NEVA Lopez Work Phone: [facility] Physician [facility] Work Phone: Start: 07-16-2023 Non-patient / Non-visit [employer] Nila fermin Lopez Work Phone: [facility] Physician [facility] [employer] Work Phone: Start: 06-17-2023 End: 06-17-2023 ambulatory Jabari Carpenter Facility:[facility] Start: 06-17-2023 End: 06-17-2023 Patient encounter procedure [employer] ART[employer] PHOTOGRAPHYJael Lopez Work Phone: [facility] [address] Work Phone: Start: 06-11-2023 Non-patient / Non-visit [employer] ART[employer] PHOTOGRAPHYJael Lopez Work Phone: [facility] [employer] Work Phone: Start: 04-10-2023 End: 04-10-2023 ambulatory Smiley Lopez Other [address] [facility] [employer] Other Start: 04-10-2023 Telephone encounter Smiley Denton her [facility] Start: 04-08-2023 End: 04-08-2023 ambulatory Smiley Lopez Other [address] [facility] [employer] Other Start: 04-08-2023 Office outpatient ne w 30 minutes Smiley Lopez [facility] Start: 03-21-2022 End: 03-21-2022 ambulatory Tammie Hawk Other [employer] Other Start: 03-21-2022 Office outpatient vi sit 25 minutes Tammie Hawk [facility] Start: 11-12-2021 End: 11-12-2021 ambulatory JAQUI ARANGO [facility] Start: 11-12-2021 End: 11-12-2021 Subsequent hospital visit by physician Jaqui Arango DO Work Phone: [facility] Comment on above: Post-op pain (Primar y Dx); Pelvic congestion Start: 07-03-2021 End: 07-06-2021 ambulatory ROWENA WEI [facility] Start: 12-05-2020 End: 12-06-2020 ambulatory WONG CADE [facility] Start: 12-05-2020 End: 12-05-2020 Subsequent hospital visit by physician House DO Work Phone: [facility] Start: 11-29-2020 End: 11-29-2020 ambulatory ROWENA WEI [facility] Start: 10-05-2020 End: 10-05-2020 Subsequent hospital visit by physician House DO Work Phone: [facility] Start: 09-04-2020 Office outpatient ne w 60 minutes Wong Cade Other [facility] Start: 09-04-2020 Office Services Wong lopez Other [facility] Start: 08-25-2020 End: 08-25-2020 Subsequent hospital visit by physician House DO Work Phone: [facility] Comment on above: Complex cyst of left ovary Start: 08-24-2020 End: 08-26-2020 Subsequent hospital visit by physician [facility] Ultrasound Room [facility] Ultrasound Comment on above: Irregular menses Start: 08-10-2020 End: 08-10-2020 Subsequent hospital visit by physician House DO Work Phone: [facility] Comment on above: Thyroid disorder Procedures Date Procedure Procedure Detail Performing Clinician Start: 11-12-2021 Blood count hemoglobin Jaqui Arango DO Work Phone: Start: 11-12-2021 Urine test visual color cmprsn meths Chia Gagnon [employer] - [employer]ATCH [employer]ISHER Start: 08-15-2021 Microscopic observat ion [Identifier] in Cervix by Cyto stain Jaqui Arango DO Work Phone: Start: 12-05-2020 Assay of thyroxine total Wong Cade MD Work Phone: Start: 10-05-2020 Assay of thyroxine total Wong Cade MD Work Phone: Start: 09-04-2020 Docrerashanu chowdhury meds by becka Cade Start: 08-28-2020 Alanine [...] Start: 08-25-2020 Carcinoembryonic antigen cea Rowena Wei [employer] - CNM Work Phone: Start: 08-25-2020 Immunoassay tumor an tigen quantitative ca 125 Rowena Wei [employer] - CNM Work Phone: Start: 08-24-2020 Us transvaginal Rowena Wei [employer] - CNM Work Phone: Start: 08-10-2020 Assay of thyroid sti mulating hormone tsh Rowena Wei [employer] - CNM Work Phone: Plan of Treatment Date Care Activity Detail Author Start: 08-10-2025 Screening for malign ant neoplasm of cervix [facility] Start: 08-15-2024 Screening for malign ant neoplasm of cervix Pap smear [facility] Start: 08-20-2022 End: 08-20-2022 Patient encounter procedure 08/20/2022 Office Visit Obstetrics and Gynecology Rowena eWi, [employer] - CNM [address] [place] [address] [address] [place], [place] [id number] [facility]OLOG[facility] Start: 12-18-2021 End: 12-18-2021 Patient encounter procedure 12/18/2021 Office Visit Obstetrics and Gynecology Jaqui Osuna DO [address] [place] [address] [facility] OBST[facility] GYNECOLOGY [facility] Start: 12-13-2021 Influenza vaccination Flu vaccine (# 1) [facility] Start: 11-21-2021 End: 11-21-2021 Patient encounter procedure 11/21/2021 Office Visit Obstetrics and Gynecology Julia Briseno PA-C [address] [place] [address] [facility]ST[facility] Start: 11-12-2021 End: 11-12-2021 Laps total hysterect 250 gm/< w/rmvl tube/ovary HYSTERECTOMY VAGINAL LAPAROSCOPIC ROBOTIC ASSISTED Pelvic congestion 11/12/2021 11:45 AM EDT [facility] Start: 10-05-2021 Thyroid stimulating hormone measurement TSH testing Work Phone: Start: 08-25-2021 Thyroid stimulating hormone measurement TSH testing Work Phone: Start: 08-10-2021 Depression Monitoring Depression Mon [facility] Start: 03-07-2021 Assay of thyroid stimulating hormone tsh TSH [place] [employer] [facility] Start: 03-07-2021 Assay of thyroxine total T4 [place] [facility] Start: 03-01-2021 End: 03-01-2021 Patient encounter procedure 03/01/2021 Office Visit Obstetrics and Gynecology Rowena Wei, NEVA - MARTIN [address] [place] [address] [facility] Start: 12-13-2020 Influenza vaccination [facility] [facility] Work Phone: Start: 12-05-2020 Assay of thyroid stimulating hormone tsh TSH [employer] Start: 12-05-2020 Assay of thyroxine total T4 [employer] [facility] Start: 11-29-2020 End: 11-29-2020 Patient encounter procedure 11/29/2020 Office Visit Obstetrics and Gynecology Rowena Wei, AIRBRUSH ARTIST PHOTOGRAPHY - CNM [address] [place] [address] [facility] Start: 11-29-2020 End: 11-29-2020 Professional / ancillary services management 11/29/2020 Ancillary Procedure Obstetrics and Gynecology [facility] Start: 10-05-2020 Assay of thyroid stimulating hormone tsh TSH [employer] [facility] Start: 10-05-2020 Assay of thyroxine total T4 [employer] [facility] Start: 08-29-2020 End: 08-29-2020 Patient encounter procedure 08/29/2020 Office Visit Obstetrics and Gynecology Rowena Wei, AIRBRUSH ARTIST PHOTOGRAPHY - CNM [address] [place] [address] [facility] Start: 08-28-2020 Assay of thyroid stimulating hormone tsh TSH [employer] [facility] Start: 08-28-2020 Assay of thyroxine total T4 [employer] [facility] Start: 08-28-2020 Assay of triiodothyr onine t3 total tt3 T3 total [employer] [facility] Start: 08-28-2020 Blood count complete automated CBC & PLATELET COUNT; AUTOMATED [employer] [facility] Start: 08-28-2020 Sedimentation rate r bc non-automated SEDRATE [employer] [facility] Start: 08-28-2020 Thyroid stimulating immune globulins tsi TSI (thyroid stimulating immunoglobulin) [employer] Start: 08-28-2020 Transferase alanine amino alt sgpt SGPT (ALT) [employer] Start: 08-24-2020 End: 08-24-2020 Patient encounter procedure 08/24/2020 Appointment Radiology [facility] [employer] [place] [facility] Start: 2016 Diabetes screen Diabetes screen [facility] [employer] Start: 2002 Screening for malign ant neoplasm of cervix Cervical cancer screen [employer] Phone: Start: 2000 DTaP/Tdap/Td vaccine (1 - Tdap) DTaP/Tdap/Td vaccine (1 - Tdap) [employer] Start: 12-30-1999 Hepatitis C [facility] Start: 1997 COVID-19 Vaccine (1) COVID-19 Vaccin e (1) [employer] Phone: Start: 1996 HIV screening HIV screen [facility] [employer] Start: 1993 COVID-19 Vaccine (1) COVID-19 Vaccin e (1) [employer] Phone: Start: 1982 Varicella vaccine (1 of 2 - 2-dose childhood series) Varicella vaccine (1 of 2 - 2-dose childhood series) [facility] Start: 06-28-1982 COVID-19 Vaccine (#1) COVID-19 Vacci ne (#1) [facility] Start: 1981 Hepatitis C screening [facility]: Comprehensive metabo lic 2000 panel - Serum or Plasma [facility] Holter monitor study [facility] End: 11-12-2021 INITIATE PACU OXYGEN THERAPY PROTOCOL Initiate PACU Oxygen Therapy Protocol Respiratory Care Routine Continuous until discontinued starting 11/12/2021 [facility] [employer] Comment on above: Continuous until dis continued starting 11/12/2021 Oxygen therapy [Mini mum Data Set] Initiate Oxygen Therapy Protocol Respiratory Care Routine As Needed until discontinued starting 11/12/2021 [employer] Phone: Comment on above: As Needed until disc ontinued starting 11/12/2021 Surgical Pathology Surgical Path ology Lab Routine Pelvic congestion Release Upon Ordering for 1 Occurrences starting 11/12/2021 [employer] Phone: Comment on above: Release Upon Orderin g for 1 Occurrences starting 11/12/2021 End: 08-25-2020 Thyroid Stimulating Immunoglobulin Thyroid Stimulating Immunoglobulin Lab Routine Once for 1 Occurrences starting 08/25/2020 until 08/25/2020 [employer] Phone: Comment on above: Once for 1 Occurrenc es starting 08/25/2020 until 08/25/2020 Thyroid Stimulating Immunoglobulin Thyroid Stimulating Immunoglobulin Lab Routine 08/25/2020 12:01 PM EDT [employer] Phone: [facility] Payers Date Payer Category Payer [employer] ( [employer] others) [id number] 2023 Self-pay 2020 [employer] ( [employer] others) [id number] 1981 Unknown [id number] 1981 Unknown [id number] 1981 Unknown [id number] 1981 Unknown [id number] [employer] ( and others) [id number] Unknown [id number] Social History Date Type Detail Facility Start: 08-10-2020 End: 09-02-2023 Tobacco smoking status NHIS Never smoker [employer] Work Phone: Start: 08-10-2020 End: 11-29-2020 Tobacco use and exposure Never used [employer] Start: 08-10-2020 End: 11-12-2021 Alcohol intake Ex-drinker (finding) [employer] Work Phone: Start: 1980 Sex Assigned At Not on file [employer] Work Phone: Start: 11-02-2021 End: 11-12-2021 Exposure to SARS-CoV-2 (event) Not sure [employer] Start: Alcohol [employer] Start: Caffeine [employer] Sex Assigned At Sex Assigned At [facility] [employer] Other Start: 1980 Sex Assigned At Female [facility] Start: 07-06-2024 Sex Female (finding) [facility] Clinical Notes 11-12-2021 to 07-06-2024 Note Date & Type Note Facility 07-06-2024 Evaluation note Diagnosis Onset Date Resolution Acquired hypothyroidism acute M arch 2024 2:50pm Anxiety acute July 06 2:50pm Depression acute July 06 2:50pm Palpitations acute July 06, 2024 2:50pm Wellness examination acute Boni 2024 2:50pm [facility] Work Phone: 1(283) 392-690412-28-2023 Evaluation note* Encounter Date Diagnosis Assessment Notes Treatment Notes Treatment Clinical Notes Mar, Acquired hypothyroidism (ICD-10 - E03.9) [place] [employer] Other 12-26-2023 Evaluation note* Encounter Date Diagnosis [...] history of lupus erythematosus (ICD-10 - Z84.0) [employer] Other 12-08-2022 Evaluation note* Encounter Date Diagnosis [...] treatment plan. Patient left in stable condition [employer] Other 08-01-2022 History of Present illness Narrative* [...] instructions. Verbalizes understanding. [facility] [employer] Work Phone: 1(783) 827-692108-01-2022 Hospital Discharge instructions* Discharge Instructions* Julia Briseno [...] Velazquez in [address] Lindo -- [place] office [phone] [place] office [phone] documented in [facility] Work Phone: evaluation note* Diagnosis Thyroid disorder Unspecified disorder of thyroid documented in this encounter [employer] Phone: evaluation note* Diagnosis Complex cyst of left ovary documented in this encounter [employer] Phone: evaluation note* Diagnosis Irregular menses Irregular menstrual cycle documented in this encounter [employer] Phone: [email or web address] note* Diagnosis Post-op pain- Primary Other acute postoperative pain Pelvic congestion Pelvic congestion syndrome documented in this encounter [facility] Work Phone: [email or web address] noteNo assessment information available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
[2024-07-24 10:33] LABS: Basophils Percent Auto 0.7 % (0.2-2.0); Eosinophils Percent Auto 0.7 % (0.9-7.0); Hematocrit 40.3 % (36.0-48.0); Hemoglobin 13.6 g/dL (12.0-16.0); Lymphocytes Percent Auto 24.3 % (20.5-60.0); Mean Corpuscular HGB Conc 33.7 g/dL (29.9-35.2); Mean Corpuscular Hemoglobin 30.6 pg (26.7-34.0); Mean Corpuscular Volume 90.6 fL (81.0-99.0); Mean Platelet Volume 9.6 fL (9.5-13.5); Monocytes Absolute Auto 0.3 10^3/uL (0.3-0.8); Monocytes Percent Auto 8.1 % (1.7-12.0); Neutrophils Absolute Auto 2.7 10^3/uL (1.4-6.5); Neutrophils Percent Auto 66.2 % (43.0-75.0); Platelet Count 206 10^3/uL (150-450); Red Blood Count 4.45 10^6/uL (4.20-5.40); Red Cell Distribution Width 11.9 % (11.0-15.0); White Blood Count 4.1 10^3/uL (4.0-11.0)
[2024-07-24 11:46] LABS: Alanine Aminotransferase 23 U/L (14-59); Albumin Globulin Ratio 1.1; Albumin Level 3.8 g/dL (3.4-5.0); Alkaline Phosphatase 44 U/L (46-116); Anion Gap 9.3; Aspartate Amino Transferase 16 U/L (15-37); BUN Creatinine Ratio 15.2; Bilirubin Total 0.5 mg/dL (0.2-1.0); Carbon Dioxide 27.6 mmol/L (21.0-32.0); Chloride 106 mmol/L (98-107); Chol HDL Ratio 3.3; Cholesterol 198 mg/dL (<=200); Estimated GFR (African America >60 (>=60 mL/min/1.73m^2); Estimated GFR (Non-African Ame >60 (>=60 mL/min/1.73m^2); Globulin 3.5 g/dL; Glucose 85 mg/dL (74-106); HDL Cholesterol 60 mg/dL (40-60); LDL Cholesterol Calculated 132.4 mg/dL; Potassium 3.9 mmol/L (3.5-5.1); Sodium 139 mmol/L (136-145); TSH W/ REFLEX FT4 0.627 uIU/mL (0.358-3.740); Total Protein 7.3 g/dL (6.4-8.2); Triglycerides 28 mg/dL (<=150); VLDL CHOLESTEROL 5.6 mg/dL
== END 2024-07-24 10:21 | disposition home or self-care (01) ==
LOC: LAB 10:20
PROVIDERS: PCP Nurse Practitioner Family; Visit Provider Nurse Practitioner Family
DX: Z00.00 Encounter for general adult medical examination without abnormal findings (principal); E03.9 Hypothyroidism, unspecified
CPT/HCPCS: 36415; 80053; 80061; 84443; 85025

== ENCOUNTER 2025-04-12 10:54 | Outpatient (OUT) | payer OTHER, SELFPAY ==
--- OUTSIDE RECORDS SUMMARY | 2025-04-12 10:58 | XMS_ITS | Clinical Summary ---
Author Organization [facility] Address [address] [place] [address] Care Team Providers Care Document Image Technician Name Role Phone Unavailable Primary Care Provider Unavailabl e Social History Tobacco UseTypesPacks/DayYears UsedDateSmoking Tobacco: Never AssessedSex and Gender InformationValueDate RecordedSex Assigned at BirthNot on fileLegal Sex Male06/26/2022 11:07 PM EDTGender IdentityNot on fileSexual OrientationNot on file Last Filed Vital Signs Vital SignReadingTime TakenCommentsBlood Pressure--Pulse--Temperature-- Respiratory Rate--Oxygen Saturation--Inhaled Oxygen Concentration--Ttackq94.4 kg (175 lb)04/25/2020 12:00 PM HBXBmqyoo457 cm (5' 8.5 )04/25/2020 12:00 PM ESTBody Mass Index26.22004/25/2020 12:00 PM EST Plan of Treatment Not on file
--- OUTSIDE RECORDS SUMMARY | 2025-04-12 10:58 | XMS_ITS | Clinical Summary ---
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] Discharge Disposition: Home02/21/2025 Get Medical Advice [facility] [address] [id number] David Hernandez MD MRI atafzit3802/19/2025 [place] [address] Provider, Cc MRI Screening Questionnaire Completion Rqqcjjdz47/27/2025 [place] [address] Provider, Ccf MRI Screening Questionnaire Completion Itsmirnc90/14/2025 1:00 PM [facility] [address] [id number] David Hernandez MD Chiari I malformation (HCC) (Primary Dx); Syringomyelia and syringobulbia (HCC); Encounter for observation for other suspected diseases and conditions ruled out 01/25/20258051Hbzqrt36/08/2025Telephone Neurology [address] [place] [address] Provider, Neurology Received Outside Medical Records (External referral to [facility]/) from Last 3 Months Social History Tobacco UseTypesPacks/DayYears UsedDateSmoking Tobacco: Never AssessedArea Deprivation IndexAnswerDate RecordedNational Score (1-100), lower number is lower vymk404401/25/2025State Score (1-10), lower number is lower diso015 Data from: https://www.neighborhoodatlas.medicine.[facility]/. 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 MRI Brain 01/14/25 at [facility]. Pt will try to have images pushed. Report was sent with referral.Health MaintenanceDue DateLast DoneCommentsAnxiety Tyfeqdbkv13/17/2000Depression Chbwjpoek45/17/2000HIV Yyunmbvvr59/17/2000Hepatitis C Ruhdmslbt64/17/2000DTaP,Tdap,Td Vaccine (1 - Tdap)2000Hepatitis B Vaccine (1 of 3 - 19+ 3-dose series)2000 Cervical Cancer Zzhnpcrxe27/17/2003HPV Vaccine (1 - 3-dose SCDM series) 2008Mammogram Shlbubzdm58/17/2022Covid-19 Vaccine ( - 2024- season) 2024Influenza Vaccine (#1)2024 Procedures Procedure NamePriorityDate/TimeAssociated DiagnosisCommentsMRI LUMBAR SPINE WO WHUMIJpleftz95/10/2025 4:29 PM EST Encounter for observation for other suspected diseases and conditions ruled out MRI THORACIC SPINE WO SYUARQwkqhge40/10/2025 4:29 PM EST Syringomyelia and syringobulbia (HCC) MRI CERVICAL SPINE WO ZXSERMngmxmd89/10/2025 4:29 PM EST Chiari I malformation (HCC) MRI OUTSIDE CD DICOM GQBRCK1101/14/2025 from Last 3 Months Results * MRI LUMBAR SPINE WO IVCON (02/21/2025 4:29 PM EST)Anatomical RegionLaterality ModalityL-spineMagnetic ResonanceSpecimen (Source)Anatomical Location / LateralityCollection Method / VolumeCollection TimeReceived Time02/21/2025 4:15 PM EST Impressions 02/21/2025 5:26 PM EST IMPRESSION: 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 Unremarkable spinal cord. No evidence of focal extradural CSF accumulation. Scattered spondylosis without significant canal or foraminal compromise Cervical Anatomic Variant: ??None. Assume 7 cervical vertebrae with counting from the craniocervical junction. Thoracic/Lumbar Anatomic Variant: None. L4-5 is considered the level of the iliac crest and assume there are 5 lumbar-type vertebrae. Teachers' Assistant: CABRERA ?? Transcribe Date/Time: Feb 21 2025 ??5:16P Dictated by : GONSALO ALBERTS MD This examination was interpreted and the report reviewed and electronically signed by: GONSALO ALBERTS MD on Feb 21 2025 ??5:24PM ??EST Narrative 02/21/2025 5:26 PM EST * * *Final Report* * * DATE OF EXAM: Feb 21 2025 ??4:15PM ?? [facility] ?? 0303 ??- ??MRI LUMBAR SPINE WO IVCON ??/ PROCEDURE REASON: Encounter for observation for other suspected diseases and conditions ruled out ? * * * * Physician Interpretation * * * * MRI THORACIC SPINE WO IVCON, MRI CERVICAL SPINE WO IVCON, MRI LUMBAR SPINE WO IVCON HISTORY: ??CSF hypotension, CSF leak (accession [id number]), Chiari with or without syrinx (accession [id number]), CSF hypotension, CSF leak (accession [id number]) - Syringomyelia or syringobulbia (accession [id number]), Chiari Malformation (accession [id number]), Spinal cord tethering suspected (accession [id number]) TECHNIQUE: MRI complete spine routine protocols without contrast. Additional heavily T2-weighted sequences with multiplanar reformatted images were performed per MQ: MRCTLWOW_3 COMPARISON: MRI brain 01/14/2025 RESULT: Counting reference: ??Craniocervical and lumbosacral junctions. For the purposes of this report, L4-5 is considered the level of the iliac crest and there are 5 lumbar-type vertebrae. Anatomic Variants: None. Alignment: ??Straightening of the cervical lordosis. Normal thoracolumbar alignment. Craniocervical junction: ??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 Cord: ??The cord is within normal limits of signal intensity and morphology. The conus terminates at L1-2. Normal course and caliber of the descending cauda equina nerve roots. No evidence of focal extradural CSF accumulation. Bone marrow signal/fracture: ??No evidence of pathologic marrow infiltration. No evidence of prior fracture. Soft tissues: ??The prevertebral and paraspinal soft tissues are within normal limits. Canal and foramina: At C6-7, shallow disc bulging partially effacing the ventral thecal sac without cord impact. Scattered small thoracic disc protrusions without cord impact throughout the thoracic levels. No significant lumbar canal or foraminal compromise. Sacrum and iliac wings: ??The visualized sacrum and iliac wings are within normal limits. The presacral soft tissues are normal in appearance. Procedure Note Provider, [facility] - 02/21/2025 * * *Final Report* * * DATE OF EXAM: Feb 21 2025 4:15PM [facility] 0303 - MRI LUMBAR SPINE WO IVCON / PROCEDURE REASON: Encounter for observation for other suspected diseases and conditions ruled out * * * * Physician Interpretation * * * * MRI THORACIC SPINE WO IVCON, MRI CERVICAL SPINE WO IVCON, MRI LUMBAR SPINE WO IVCON HISTORY: CSF hypotension, CSF leak (accession [id number]), Chiari with or without syrinx (accession [id number]), CSF hypotension, CSF leak (accession [id number]) - Syringomyelia or syringobulbia (accession [id number]), Chiari Malformation (accession [id number]), Spinal cord tethering suspected (accession [id number]) TECHNIQUE: MRI complete spine routine protocols without contrast. Additional heavily T2-weighted sequences with multiplanar reformatted images were performed per MQ: MRCTLWOW_3 COMPARISON: MRI brain 01/14/2025 RESULT: Counting reference: Craniocervical and lumbosacral junctions. For the purposes of this report, L4-5 is considered the level of the iliac crest and there are 5 lumbar-type vertebrae. Anatomic Variants: None. Alignment: Straightening of the cervical lordosis. Normal thoracolumbar alignment. Craniocervical junction: 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 Cord: The cord is within normal limits of signal intensity and morphology. The conus terminates at L1-2. Normal course and caliber of the descending cauda equina nerve roots. No evidence of focal extradural CSF accumulation. Bone marrow signal/fracture: No evidence of pathologic marrow infiltration. No evidence of prior fracture. Soft tissues: The prevertebral and paraspinal soft tissues are within normal limits. Canal and foramina: At C6-7, shallow disc bulging partially effacing the ventral thecal sac without cord impact. Scattered small thoracic disc protrusions without cord impact throughout the thoracic levels. No significant lumbar canal or foraminal compromise. Sacrum and iliac wings: The visualized sacrum and iliac wings are within normal limits. The presacral soft tissues are normal in appearance. 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 Unremarkable spinal cord. No evidence of focal extradural CSF accumulation. Scattered spondylosis without significant canal or foraminal compromise Cervical Anatomic Variant: None. Assume 7 cervical vertebrae with counting from the craniocervical junction. Thoracic/Lumbar Anatomic Variant: None. L4-5 is considered the level of the iliac crest and assume there are 5 lumbar-type vertebrae. Teachers' Assistant: CABRERA Transcribe Date/Time: Feb 21 2025 5:16P Dictated by : GONSALO ALBERTS MD This examination was interpreted and the report reviewed and electronically signed by: GONSALO ALBERTS MD on Feb 21 2025 5:24PM EST Authorizing ProviderResult TypeResult StatusSarel Mandeep Hernandez [facility] Final Result * MRI THORACIC SPINE WO IVCON (02/21/2025 4:29 PM EST)Anatomical Region LateralityModalityT-spineMagnetic ResonanceSpecimen (Source)Anatomical Location / LateralityCollection Method / VolumeCollection TimeReceived Time 02/21/2025 4:15 PM EST Impressions 02/21/2025 5:26 PM EST IMPRESSION: 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 Unremarkable spinal cord. No evidence of focal extradural CSF accumulation. Scattered spondylosis without significant canal or foraminal compromise Cervical Anatomic Variant: ??None. Assume 7 cervical vertebrae with counting from the craniocervical junction. Thoracic/Lumbar Anatomic Variant: None. L4-5 is considered the level of the iliac crest and assume there are 5 lumbar-type vertebrae. Teachers' Assistant: PSCB ?? Transcribe Date/Time: Feb 21 2025 ??5:16P Dictated by : GONSALO ALBERTS MD This examination was interpreted and the report reviewed and electronically signed by: GONSALO ALBERTS MD on Feb 21 2025 ??5:24PM ??EST Narrative 02/21/2025 5:26 PM EST * * *Final Report* * * DATE OF EXAM: Feb 21 2025 ??4:15PM ?? [facility] ?? 0325 ??- ??MRI THORACIC SPINE WO IVCON ??/ PROCEDURE REASON: Syringomyelia and syringobulbia (HCC) ? * * * * Physician Interpretation * * * * MRI THORACIC SPINE WO IVCON, MRI CERVICAL SPINE WO IVCON, MRI LUMBAR SPINE WO IVCON HISTORY: ??CSF hypotension, CSF leak (accession [id number]), Chiari with or without syrinx (accession [id number]), CSF hypotension, CSF leak (accession [id number]) - Syringomyelia or syringobulbia (accession [id number]), Chiari Malformation (accession [id number]), Spinal cord tethering suspected (accession [id number]) TECHNIQUE: MRI complete spine routine protocols without contrast. Additional heavily T2-weighted sequences with multiplanar reformatted images were performed per MQ: MRCTLWOW_3 COMPARISON: MRI brain 01/14/2025 RESULT: Counting reference: ??Craniocervical and lumbosacral junctions. For the purposes of this report, L4-5 is considered the level of the iliac crest and there are 5 lumbar-type vertebrae. Anatomic Variants: None. Alignment: ??Straightening of the cervical lordosis. Normal thoracolumbar alignment. Craniocervical junction: ??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 Cord: ??The cord is within normal limits of signal intensity and morphology. The conus terminates at L1-2. Normal course and caliber of the descending cauda equina nerve roots. No evidence of focal extradural CSF accumulation. Bone marrow signal/fracture: ??No evidence of pathologic marrow infiltration. No evidence of prior fracture. Soft tissues: ??The prevertebral and paraspinal soft tissues are within normal limits. Canal and foramina: At C6-7, shallow disc bulging partially effacing the ventral thecal sac without cord impact. Scattered small thoracic disc protrusions without cord impact throughout the thoracic levels. No significant lumbar canal or foraminal compromise. Sacrum and iliac wings: ??The visualized sacrum and iliac wings are within normal limits. The presacral soft tissues are normal in appearance. Procedure Note Provider, [facility] - 02/21/2025 * * *Final Report* * * DATE OF EXAM: Feb 21 2025 4:15PM [facility] 0325 - MRI THORACIC SPINE WO IVCON / PROCEDURE REASON: Syringomyelia and syringobulbia (HCC) * * * * Physician Interpretation * * * * MRI THORACIC SPINE WO IVCON, MRI CERVICAL SPINE WO IVCON, MRI LUMBAR SPINE WO IVCON HISTORY: CSF hypotension, CSF leak (accession [id number]), Chiari with or without syrinx (accession [id number]), CSF hypotension, CSF leak (accession [id number]) - Syringomyelia or syringobulbia (accession [id number]), Chiari Malformation (accession [id number]), Spinal cord tethering suspected (accession [id number]) TECHNIQUE: MRI complete spine routine protocols without contrast. Additional heavily T2-weighted sequences with multiplanar reformatted images were performed per MQ: MRCTLWOW_3 COMPARISON: MRI brain 01/14/2025 RESULT: Counting reference: Craniocervical and lumbosacral junctions. For the purposes of this report, L4-5 is considered the level of the iliac crest and there are 5 lumbar-type vertebrae. Anatomic Variants: None. Alignment: Straightening of the cervical lordosis. Normal thoracolumbar alignment. Craniocervical junction: 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 Cord: The cord is within normal limits of signal intensity and morphology. The conus terminates at L1-2. Normal course and caliber of the descending cauda equina nerve roots. No evidence of focal extradural CSF accumulation. Bone marrow signal/fracture: No evidence of pathologic marrow infiltration. No evidence of prior fracture. Soft tissues: The prevertebral and paraspinal soft tissues are within normal limits. Canal and foramina: At C6-7, shallow disc bulging partially effacing the ventral thecal sac without cord impact. Scattered small thoracic disc protrusions without cord impact throughout the thoracic levels. No significant lumbar canal or foraminal compromise. Sacrum and iliac wings: The visualized sacrum and iliac wings are within normal limits. The presacral soft tissues are normal in appearance. 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 Unremarkable spinal cord. No evidence of focal extradural CSF accumulation. Scattered spondylosis without significant canal or foraminal compromise Cervical Anatomic Variant: None. Assume 7 cervical vertebrae with counting from the craniocervical junction. Thoracic/Lumbar Anatomic Variant: None. L4-5 is considered the level of the iliac crest and assume there are 5 lumbar-type vertebrae. Teachers' Assistant: PSCB Transcribe Date/Time: Feb 21 2025 5:16P Dictated by : GONSALO ALBERTS MD This examination was interpreted and the report reviewed and electronically signed by: GONSALO ALBERTS MD on Feb 21 2025 5:24PM EST Authorizing ProviderResult TypeResult StatusSarel Mandeep Hernandez [facility] Final Result * MRI CERVICAL SPINE WO IVCON (02/21/2025 4:29 PM EST)Anatomical Region LateralityModalityC-spineMagnetic ResonanceSpecimen (Source)Anatomical Location / LateralityCollection Method / VolumeCollection TimeReceived Time 02/21/2025 4:15 PM EST Impressions 02/21/2025 5:26 PM EST IMPRESSION: 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 Unremarkable spinal cord. No evidence of focal extradural CSF accumulation. Scattered spondylosis without significant canal or foraminal compromise Cervical Anatomic Variant: ??None. Assume 7 cervical vertebrae with counting from the craniocervical junction. Thoracic/Lumbar Anatomic Variant: None. L4-5 is considered the level of the iliac crest and assume there are 5 lumbar-type vertebrae. Teachers' Assistant: PSCB ?? Transcribe Date/Time: Feb 21 2025 ??5:16P Dictated by : GONSALO ALBERTS MD This examination was interpreted and the report reviewed and electronically signed by: GONSALO ALBERTS MD on Feb 21 2025 ??5:24PM ??EST Narrative 02/21/2025 5:26 PM EST * * *Final Report* * * DATE OF EXAM: Feb 21 2025 ??4:15PM ?? [facility] ?? 0297 ??- ??MRI CERVICAL SPINE WO IVCON ??/ PROCEDURE REASON: Chiari I malformation (HCC) ? * * * * Physician Interpretation * * * * MRI THORACIC SPINE WO IVCON, MRI CERVICAL SPINE WO IVCON, MRI LUMBAR SPINE WO IVCON HISTORY: ??CSF hypotension, CSF leak (accession [id number]), Chiari with or without syrinx (accession [id number]), CSF hypotension, CSF leak (accession [id number]) - Syringomyelia or syringobulbia (accession [id number]), Chiari Malformation (accession [id number]), Spinal cord tethering suspected (accession [id number]) TECHNIQUE: MRI complete spine routine protocols without contrast. Additional heavily T2-weighted sequences with multiplanar reformatted images were performed per MQ: MRCTLWOW_3 COMPARISON: MRI brain 01/14/2025 RESULT: Counting reference: ??Craniocervical and lumbosacral junctions. For the purposes of this report, L4-5 is considered the level of the iliac crest and there are 5 lumbar-type vertebrae. Anatomic Variants: None. Alignment: ??Straightening of the cervical lordosis. Normal thoracolumbar alignment. Craniocervical junction: ??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 Cord: ??The cord is within normal limits of signal intensity and morphology. The conus terminates at L1-2. Normal course and caliber of the descending cauda equina nerve roots. No evidence of focal extradural CSF accumulation. Bone marrow signal/fracture: ??No evidence of pathologic marrow infiltration. No evidence of prior fracture. Soft tissues: ??The prevertebral and paraspinal soft tissues are within normal limits. Canal and foramina: At C6-7, shallow disc bulging partially effacing the ventral thecal sac without cord impact. Scattered small thoracic disc protrusions without cord impact throughout the thoracic levels. No significant lumbar canal or foraminal compromise. Sacrum and iliac wings: ??The visualized sacrum and iliac wings are within normal limits. The presacral soft tissues are normal in appearance. Procedure Note Provider, [facility] - 02/21/2025 * * *Final Report* * * DATE OF EXAM: Feb 21 2025 4:15PM [facility] 0297 - MRI CERVICAL SPINE WO IVCON / PROCEDURE REASON: Chiari I malformation (HCC) * * * * Physician Interpretation * * * * MRI THORACIC SPINE WO IVCON, MRI CERVICAL SPINE WO IVCON, MRI LUMBAR SPINE WO IVCON HISTORY: CSF hypotension, CSF leak (accession [id number]), Chiari with or without syrinx (accession [id number]), CSF hypotension, CSF leak (accession [id number]) - Syringomyelia or syringobulbia (accession [id number]), Chiari Malformation (accession [id number]), Spinal cord tethering suspected (accession [id number]) TECHNIQUE: MRI complete spine routine protocols without contrast. Additional heavily T2-weighted sequences with multiplanar reformatted images were performed per MQ: MRCTLWOW_3 COMPARISON: MRI brain 01/14/2025 RESULT: Counting reference: Craniocervical and lumbosacral junctions. For the purposes of this report, L4-5 is considered the level of the iliac crest and there are 5 lumbar-type vertebrae. Anatomic Variants: None. Alignment: Straightening of the cervical lordosis. Normal thoracolumbar alignment. Craniocervical junction: 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 Cord: The cord is within normal limits of signal intensity and morphology. The conus terminates at L1-2. Normal course and caliber of the descending cauda equina nerve roots. No evidence of focal extradural CSF accumulation. Bone marrow signal/fracture: No evidence of pathologic marrow infiltration. No evidence of prior fracture. Soft tissues: The prevertebral and paraspinal soft tissues are within normal limits. Canal and foramina: At C6-7, shallow disc bulging partially effacing the ventral thecal sac without cord impact. Scattered small thoracic disc protrusions without cord impact throughout the thoracic levels. No significant lumbar canal or foraminal compromise. Sacrum and iliac wings: The visualized sacrum and iliac wings are within normal limits. The presacral soft tissues are normal in appearance. 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 Unremarkable spinal cord. No evidence of focal extradural CSF accumulation. Scattered spondylosis without significant canal or foraminal compromise Cervical Anatomic Variant: None. Assume 7 cervical vertebrae with counting from the craniocervical junction. Thoracic/Lumbar Anatomic Variant: None. L4-5 is considered the level of the iliac crest and assume there are 5 lumbar-type vertebrae. Teachers' Assistant: [facility] MEDICAL CENTERMarsha Transcribe Date/Time: Feb 21 2025 5:16P Dictated by : GONSALO ALBERTS MD This examination was interpreted and the report reviewed and electronically signed by: GONSALO ALBERTS MD on Feb 21 2025 5:24PM EST Authorizing ProviderResult TypeResult StatusSarel Mandeep Hernandez [facility] Final Result * AL-MR head/brain wo/w con IMPORT (01/14/2025)Anatomical RegionLaterality ModalityOtherSpecimen (Source)Anatomical Location / LateralityCollection Method / VolumeCollection TimeReceived Time01/14/2025 Narrative 01/24/2025 3:00 PM EDT Images were obtained outside of [facility] Procedure Note Provider, [facility] - 01/24/2025 Images were obtained outside of [facility] Authorizing ProviderResult TypeResult StatusCcf ProviderMRIFinal Result from Last 3 Months Insurance * Guarantor: Truman Harriscount TypeRelation to PatientDate of BirthPhone Billing AddressPersonal/HjiuwiQjkq09/ [address] [place] [address]
--- OUTSIDE RECORDS SUMMARY | 2025-04-12 10:58 | XMS_ITS | Clinical Summary ---
Author Organization [facility] [employer] [facility] tem Address [id number] 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 60 tablet ctive Additional Information Patient not taking.Reported on 03/26/2022 subohmndgn-cibukduxpsqbk-nyeo (FIORICET, ESGIC) 50-325-40 mg per tablet Take 1 tablet by mouth every 4 (four) hours as needed for headaches. 30 tablet 5Active Active Problems No known active problems Encounters DateTypeDepartmentCare JqfiOcwtnxyqwrt95/08/2025 7:08 AM EDT - 01/19/2025 10:58 AM [facility] [address] [place] [address] Ashok Gaspar MD Orthostatic hypotension (Primary Dx) Discharge Disposition: Home01/19/2025Travelfrom Last 3 Months Family History Medical HistoryRelationNameCommentsHypertensionFatherLupusMotherBreast cancerNeg HxColon cancerNeg HxOvarian cancerNeg HxUterine cancerNeg HxRelationNameStatus CommentsFatherMother Social History Tobacco UseTypesPacks/DayYears UsedDateSmoking Tobacco: NeverSmokeless Tobacco: Never Tobacco Cessation:Counseling Given: No Alcohol UseStandard Drinks/WeekCommentsNo0 (1 standard drink = 0.6 oz pure alcohol)ChildcareAnswerDate NzprcgzsDaapgvnmsDsofzfq08/12/2019EmploymentAnswer Date AyewyrcyHptwihoovxMfrgbzx41/12/2019Hunger ScreeningAnswerDate Recorded Within the past 12 months we worried whether our food would run out before we got money to buy more.Never True01/19/2025Within the past 12 months the food we bought just didn't last and we didn't have money to get more.Never True 01/19/2025Purpose - LifeAnswerDate RecordedPurpose and direction in lifeUnknown 1CommentsNoSex and Gender InformationValueDate RecordedSex Assigned at BirthNot on fileLegal RggMdwgfk41/06/2015 11:33 AM EDTGender IdentityNot on fileSexual OrientationNot on file Last Filed Vital Signs Vital SignReadingTime TakenCommentsBlood Owpwgnys919/7101/19/2025 10:45 AM EDT Vydoi274701/19/2025 10:30 AM DGAGzxsstrlrho35.8 ??C (98.2 ??F)01/19/2025 7:12 AM EDTRespiratory Fjbz6801 10:15 AM EDTOxygen Ibsukmwhvk412%01/19/2025 10:45 AM EDTInhaled Oxygen Concentration--Vwtfbm69.3 kg (199 lb)01/19/2025 7:12 AM RNLUrrfiv305.7 cm (5' 8 )01/19/2025 7:12 AM EDTBody Mass Index30.261 7:12 AM EDT Plan of Treatment Health MaintenanceDue DateLast DoneCommentsDepression Ifeisjush56/17/1994Adult BMI Follow Up Plan12/30/1999DTaP,Tdap and Td Vaccines (1 - Tdap)2000 Influenza Yfoifnx09/01/2025Adult BMI Vnenmsqps89Tobacco Bfwgrxmzy84Pap KpefoJojskgndmhnf62/29/2021 Medical Devices Not on file Procedures Procedure NamePriorityDate/TimeAssociated DiagnosisCommentsEXTRA TUBES BLUE TOP Qhzdgia4501/19/2025 8:11 AM EDT EXTRA YLREELzimsai40/08/2025 8:11 AM EDT THYROID PROFILE INCLUDES TSH CP4BPXB0501/19/2025 8:11 AM EDT JPUPZFYRGNUJF82/08/2025 8:11 AM EDT BASIC METABOLIC BSAPIEKTU65/08/2025 8:11 AM EDT CBC WITH AUTO VDUSROZZWIVOFQNW55/08/2025 8:11 AM EDT ECG 12-AVNXHONE32/08/2025 7:12 AM EDT from Last 3 Months Results * Light Blue Top (01/19/2025 8:11 AM EDT)ComponentValueRef RangeTest Method Analysis TimePerformed AtPathologist SignatureExtra TubeAuto Resulted 01/19/2025 10:02 AM EDTPROMEDDOWNEY REGIONAL MEDICAL CENTERpecimen (Source) Anatomical Location / LateralityCollection Method / VolumeCollection Time Received TimeBloodVenous blood / UnknownVenipuncture / Nassejh9301/19/2025 8:11 AM EDT1 8:14 AM EDT Narrative Authorizing ProviderResult TypeResult StatusAshok Gaspar MDLAB BLOOD ORDERABLES Final ResultPerforming OrganizationAddressCity/State/ZIP CodePhone Number [facility] [address] [place] [address], * (ABNORMAL) Thyroid profile includes TSH FT4 (01/19/2025 8:11 AM EDT)Component ValueRef RangeTest MethodAnalysis TimePerformed AtPathologist SignatureFREE T4 1.060.61 - 1.60 ng/dL10/11/2024 9:01 AM [facility] TSH0.44(L)0.49 - 4.67 uIU/mL01/19/2025 9:01 AM [facility]pecimen (Source)Anatomical Location / LateralityCollection Method / VolumeCollection TimeReceived TimeBloodVenous blood / UnknownVenipuncture / Wajwahz6501/19/2025 8:11 AM EDT1 8:13 AM EDT Narrative Authorizing ProviderResult TypeResult StatusAshok Gaspar MDLAB BLOOD ORDERABLES Final ResultPerforming OrganizationAddressCity/State/ZIP CodePhone Number [facility] [address] [place] [address], * (ABNORMAL) CBC auto differential (01/19/2025 8:11 AM EDT)ComponentValueRef RangeTest MethodAnalysis TimePerformed AtPathologist SignatureWBC4.44 - 11 x10E9/L1 8:23 AM [facility]ITALRBC Count4.38 3.8 - 5.2 X10E12/L1 8:23 AM [facility] Utfeabdcbe15.111.7 - 15.5 g/dL01/19/2025 8:23 AM [facility]ITALHematocrit38.935 - 47 %01/19/2025 8:23 AM [facility]MCV8980 - 100 fL01/19/2025 8:23 AM [facility]ITALMCH30.027 - 34 pg01/19/2025 8:23 AM [facility]ITALMCHC33.732 - 36 g/dL01/19/2025 8:23 AM [facility]ITALRDW13.411.5 - 15 %01/19/2025 8:23 AM [facility]ITALPlatelet Wxaie878089 - 450 X10E9/L1 8:23 AM EDT [facility]MPV8.07 - 12 fL10/11/2024 8:23 AM EDT [facility]ITALNeutrophils %69.9%01/19/2025 8:23 AM EDT [facility]ITALLymphocytes %20.2%01/19/2025 8:23 AM EDT [facility]ITALMonocytes %8.7%01/19/2025 8:23 AM EDT [facility]OSPITALEosinophils %0.8%01/19/2025 8:23 AM EDT [facility]ITALBasophils %0.4%01/19/2025 8:23 AM EDT [facility]ITALNeutrophils Absolute (A)3.11.5 - 6.6 10*3/uL01/19/2025 8:23 AM EDOHIOHE[facility] HARDIN [facility]OR[facility] HOSPITALLymphocytes Absolute0.9(L)1.0 - 3.5 10*3/uL01/19/2025 8:23 AM EDTPOHIO VALLEY [facility] HOSPITALMonocytes Absolute0.40.0 - 0.9 10*3/uL01/19/2025 8:23 AM EDT [facility]ALEosinophils Absolute0.00.0 - 0.4 10*3/uL 01/19/2025 8:23 AM EDOHIOHE[facility] HARDIN [facility]OR[facility] HOSPITALBasophils Absolute0.0 0.0 - 0.2 10*3/uL01/19/2025 8:23 AM [facility] Differential TypeAUTOMATED KTVSVSMLTWBO03/08/2025 8:23 AM [facility]ENTERpecimen (Source)Anatomical Location / LateralityCollection Method / VolumeCollection TimeReceived TimeBloodVenous blood / Unknown Venipuncture / Fgbmckb3401/19/2025 8:11 AM EDT1 8:13 AM EDT Narrative Authorizing ProviderResult TypeResult StatusAshok Gaspar MDLAB BLOOD ORDERABLES Final ResultPerforming OrganizationAddressCity/State/ZIP CodePhone Number [facility] [address] [place] [address], [place] * Magnesium (01/19/2025 8:11 AM EDT)ComponentValueRef RangeTest MethodAnalysis TimePerformed AtPathologist SignatureMAGNESIUM1.91.8 - 2.6 mg/dL01/19/2025 8:40 AM [facility]ENTERpecimen (Source)Anatomical Location / LateralityCollection Method / VolumeCollection TimeReceived Time BloodVenous blood / UnknownVenipuncture / Xyzclsr2601/19/2025 8:11 AM EDT 01/19/2025 8:13 AM EDT Narrative Authorizing ProviderResult TypeResult StatusAshok FORDE BLOOD ORDERABLES Final ResultPerforming OrganizationAddressCity/State/ZIP CodePhone Number [address] [place] [address], [place] * Basic Metabolic Panel (01/19/2025 8:11 AM EDT)ComponentValueRef RangeTest MethodAnalysis TimePerformed AtPathologist KrptjhfhzXYENDK000213 - 146 mmol/L 01/19/2025 8:40 AM [facility]PITALPOTASSIUM4.13.5 - 5.0 mmol/L1 8:40 AM [facility]ITALCHLORIDE10498 - 109 mmol/L1 8:40 AM [facility]PITALCARBON VBPTHZA1341 - 32 mmol/L1 8:40 AM [facility]PITALANION GAP65 - 15 mmol/L1 8:40 AM [facility]OSPITALBLOOD UREA ARNHKLYM461 - 23 mg/dL01/19/2025 8:40 AM EDT [facility]ITALCREATININE0.630.40 - 1.00 mg/dL01/19/2025 8:40 AM [facility]PITALComment:METHOD TRACEABLE TO IDMS KFSVUMBRXMVHSDE4164 - 99 mg/dL01/19/2025 8:40 AM [facility]OSPITALCALCIUM8.68.5 - 10.5 mg/dL01/19/2025 8:40 AM EDOHIOHEALTH HARDIN MEMORIAL HOSPITALEGFR Non-Race Dependent>90>=60 ml/min/1.73sq.m1 8:40 AM [facility]PITALComment: eGFR not reported due to non-numeric value for Creatinine. Reported eGFR is based on the CKD-EPI 2020 equation that does not use a race coefficient. Specimen (Source)Anatomical Location / LateralityCollection Method / Volume Collection TimeReceived TimeBloodVenous blood / UnknownVenipuncture / Unknown 01/19/2025 8:11 AM EDT1 8:13 AM EDT Narrative Authorizing ProviderResult TypeResult StatusAshok Gaspar MDLAB BLOOD ORDERABLES Final ResultPerforming OrganizationAddressCity/State/ZIP CodePhone Number [facility] [address] [place] [address], * ECG 12 lead (01/19/2025 7:12 AM EDT)Specimen (Source)Anatomical Location / LateralityCollection Method / VolumeCollection TimeReceived Time01/19/2025 7:12 AM EDT Narrative [facility] - 01/19/2025 12:42 PM EDT Authorizing ProviderResult TypeResult StatusAshok Gaspar MDECG ORDERABLESFinal ResultPerforming OrganizationAddressCity/State/ZIP CodePhone Number [facility] from Last 3 Months Insurance * Guarantor: Dale Harris TypeRelation to PatientDate of BirthPhone Billing AddressWorkers XuvfWykx54/17/1982 [facility] [place] [address] Care Teams Team MemberRelationshipSpecialtyStart DateEnd Date Smiley Lopez APRN-ISAMAR [address] [facility] [place] [address] PCP - GeneralNurse Xnhjsobcjmnf67/8/25
--- OUTSIDE RECORDS SUMMARY | 2025-04-12 10:58 | XMS_ITS | Clinical Summary ---
Author Organization [facility] 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 Role Phone Toni Sanches DO, Charles P Primary Care Provider + Allergies Active AllergyReactionsCriticalityNoted XdmcKygzthwtMulzsfvktmo74/29/2021 Medications MedicationSigDispense QuantityRefillsLast FilledStart DateEnd DateStatus levothyroxine (SYNTHROID) 125 MCG tablet Indications:Hypothyroidism, unspecified typeTake 1 tablet by mouth daily 90 tablet 06/05/2021ctive Active Problems ProblemNoted DateDiagnosed DatePost-op pain11/12/20212649Hsjvbqqosgdhwl89/18/2021 Family History Medical HistoryRelationNameCommentsHeart DiseaseMotherLupusMotherblood clotting disorderOtherOtherNo family h/o ovarian cancer or breast cancerRelationName StatusCommentsBrotherAliveFatherAliveMaternal GrandfatherDeceasedMaternal GrandmotherDeceasedMotherDeceasedOtherOtherPaternal GrandfatherDeceasedPaternal GrandmotherAliveSister 1AliveSister 2Alive Social History Tobacco UseTypesPacks/DayYears UsedDateSmoking Tobacco: NeverSmokeless Tobacco: Never Tobacco Cessation:Counseling Given: Not Answered Alcohol UseStandard Drinks/WeekCommentsNot Currently0 (1 standard drink = 0.6 oz pure alcohol)PHQ-2AnswerDate RecordedPHQ-9 Total Heclv7250/29/2021 CommentsNoSex and Gender InformationValueDate RecordedSex Assigned at BirthNot on fileLegal RwpXeizcs90/01/2013 1:53 PM ESTGender IdentityNot on fileSexual OrientationNot on file Last Filed Vital Signs Vital SignReadingTime TakenCommentsBlood Xhwjmbup469/6809 4:39 PM EDT Lllcc7970 8:02 AM KMUGknxspjctgb75.7 ??C (98.1 ??F)11/12/2021 2:15 PM EDTRespiratory Fmje6033 5:15 PM EDTOxygen Plgibjjlyh48%11/12/2021 5:15 PM EDTInhaled Oxygen Concentration--Vozvqb29.7 kg (200 lb)12/18/2021 4:39 PM EDT Gtfyqs589 cm (5' 8.5 )12/18/2021 4:39 PM EDTBody Mass Index29.9709 4:39 PM EDT Plan of Treatment Not on file Advance Directives * Full Code (Latest Code Status on File) Date ActivatedDate InactivatedComments11/12/2021 9:46 AM11/12/2021 8:15 PM Care Teams Team MemberRelationshipSpecialtyStart DateEnd Date Simeon Muñoz Sr., DO [address] [place] [address] PCP - GeneralFamily Medicine08/10/20
--- OUTSIDE RECORDS SUMMARY | 2025-04-12 11:01 | XMS_ITS | CCD ---
Author Organization [facility] Care Team Providers Care Educational Specialist Name Role Phone House DO, Sr Simeon P Primary Care Provider [phone] Unavailable Primary Care Physician Unavailab le House DO, Sr Simeon P Primary Care Provider [phone] Wong Cade Primary Care Physician Unavai lable House DO, Sr Simeon P Primary Care Provider [phone] NARDA WEI Referring Unavailabl e HOUSE, SR SIMEON P Primary Care Unavailable JAQUI OSUNA Attending Unavail able JAQUI OSUNA Admitting Unavail able HOUSE, SR SIMEON P Primary Care Unavailable WONG CADE Referring Unavailable HOUSE, SR SIMEON P Primary Care Unavailable NARDA WEI Referring Unavailabl e HOUSE, SR SIMEON P Primary Care Unavailable Tammie Hawk Unavailable Smiley Lopez Unavailable NEVA Lopez Primary Care Provider MD Gonsalo Carpenter Attending Provider Smiley Lopez APRN Primary Care Provider Smiley Lopez APRN Attending Provider [phone] Pham Rivers CMA Attending Provider Unavaila ELENITA Merida Attending Unavailable NO PCP, NO PCP Primary Care Unavailable BOBY STERN Attending Unavailable SMILEY LOPEZ Primary Care Unavailable Smiley Lopez APRN Referring Provider [phone] Cassandra Bright MD Attending Provider Smiley Lopez Admitting Unavailable Smiley Lopez Primary Care Unavailable Smiley Lopez Attending Unavailable Cassandra Bright Admitting Unavailable Cassandra Bright Attending Unavailable Smiley Lopez Primary Care Unavailable DAVID HERNANDEZ Attending Unavaila ble SMILEY LOPEZ A Referring Unavailab DAVID Mazariegos Referring Unavaila ble Allergies Allergy ClassificationReported Allergen(s)Allergy TypeDate of OnsetReaction(s) FacilityPenicillins (antibiotic) (7 sources)PenicillinsDrug Vptozkj48-52-9067[facility] (3 sources)Penicillins; Translations: [PENICILLINS]Propensity to adverse reactions to bkok26-50-2742Onvrv [place] (3 sources)Penicillin GDrug Allergythroat [facility] [employer] Other (1 source)PenicillinDrug Eccgysf52-13-2825MnabeoezuBlanchard Valley Health System Repository Medications Current Medications MedicationDrug Class(es)DatesSig (Normalized)Sig (Original)acetaminophen 325 mg / butalbital 50 mg / caffeine 40 mg oral capsule (4 sources)Barbiturate, Central Nervous System Stimulant, MethylxanthineStart: 75-70-7633fhmw 1 capsule by mouth every eight hours as needed for painStart: 01-26-2025 End: 60-52-9852jcxn 1 capsule by mouth every six hours as needed for pain Mgclhsxwpz-Xfzpalobinejw-Hgks 50-325-40 mg capsule Discontinued 1 CAP PO Every 6 hours as needed for pain January 26, 2025 12:00am January 26, 2025 4:22pm acetaminophen 325 mg / oxyCODONE hydrochloride 5 mg oral tablet (1 source)Opioid AgonistStart: 11-12-2021 End: 68-44-9857oyyPBGAJY-acetaminophen (PERCOCET) 5-325 MG per tablet Indications: Post-op pain Take 1 tablet by mouth every 6 hours as needed for Pain for up to 3 days. Intended supply: 3 days. Take lowest dose possible to manage pain 12 tablet 0 11/12/2021 11/15/2021 Activecalcium chloride 0.0014 meq/ml / potassium chloride 0.004 meq/ml / sodium chloride 0.103 meq/ml / sodium lactate 0.028 meq/ml injectable solution (1 source)Start: 47-51-2952smemeuhr ringers infusionketorolac tromethamine 10 mg oral tablet (1 source)Nonsteroidal Anti-inflammatory Drug, Cyclooxygenase InhibitorStart: 11-12-2021 End: 76-49-1774cpib 1 tablet by mouth every six hours as needed for pain ketorolac (TORADOL) 10 MG tablet Take 1 tablet by mouth every 6 hours as needed for Pain 20 tablet 0 11/12/2021 11/12/2022 ActivemedroxyPROGESTERone acetate 5 mg oral tablet (2 sources)ProgestinStart: 52-90-1259tpfu 16-25 tablets by mouth once daily medroxyPROGESTERone (PROVERA) 5 MG tablet Indications: Irregular menses Take 1 tablet by mouth daily Days 16-25 of each cycle 10 tablet 12 08/29/2020 Active2 ml ondansetron 2 mg/ml injection (1 source)Serotonin-3 Receptor AntagonistStart: 45-37-9349kcromstffxk (ZOFRAN) injection 4 mgsertraline 25 mg oral tablet (15 sources)Serotonin Reuptake InhibitorStart: 07-06-2024 End: 36-02-7790epnn 1 tablet by mouth once daily5 ml sodium chloride 9 mg/ml injection (6 sources)Start: 54-25-4508ntts 1 dose intravenously twice daily5-40 mL, IntraVENous, EVERY 12 HOURS SCHEDULED (2 times per day), First dose on Fri11/12/21 at 2100,Until Discontinued For Line Patency: Peripheral IV = 5 mL; Midline or Central Line = 10 mL/lumen. If following IV push medication, administer flush at same rate as the IV push. Flush volume is determined by type of infusion therapy being given. For non-viscous s olutions use: Peripheral IV = 5 mL Midline or Central Line = 10 mL/lumen For viscous solutions (i.e. blood components, parenteral nutrition, contrast media, or after obtaining blood sample) use: Peripheral IV = 10 mL Midline or Central Line = 20 mL/lumen PACU onlyStart: 28-93-2091ZiukaECVvfx, at 5-250 mL/hr, PRN, if patient receiving piggyback infusions and maintenance fluids are not ordered OR KVO fluids to protect IV site / prevent frequent line interruptions/ long duration, Starting on Fri11/12/21 at 1331 For piggyback infusion, administer at same rate as piggyback for a total of 25 mL. Enter 25 mL into dose field and piggyback rate into rate field of order. Ifpiggyback is infusing at a rate less than 100 mL/hr, enter 25 mL into dose field and 100 mL/hr intorate field of order. For KVO fluids, enter rate of 20 mL/hr or less into rate field of order. PACU onlyStart: 19-22-0835pjqm 5-40 mL intravenously once as needed5-40 mL, IntraVENous, PRN, Starting on Fri11/12/21 at [...] or Central Line = 20 mL/lumen PACU onlyStart: .9 % sodium chloride infusionStart: 88-97-9445pjetox chloride flush 0.9 % injection 5-40 mLtiZANidine 2 mg oral tablet (10 sources)Central alpha-2 Adrenergic AgonistStart: 79-17-7401gzpn 1 tablet by mouth three times daily as needed Completed/Discontinued Medications MedicationDrug Class(es)DatesSig (Normalized)Sig (Original)acetaminophen 325 mg oral tablet (1 source)Start: 11-12-2021 End: 83-79-5765nmaskznkwalvn (TYLENOL) tablet 650 mgacetaminophen 325 mg / HYDROcodone bitartrate 5 mg oral tablet (2 sources)Opioid AgonistStart: 11-12-2021 End: 56-84-8327NSFGUiwxjjj-acetaminophen (NORCO) 5-325 MG per tablet 2 tablet Start: 11-12-2021 End: 92-08-7225RTHGQyuzydt-acetaminophen (NORCO) 5-325 MG per tablet Indications: Post-op pain Take 1 tablet by mouth every 6 hours as needed for Pain for up to 5 days. Intended supply: 5 days. Take lowest dose possible to manage pain 10 tablet 0 11/12/2021 11/12/2021 Discontinued (Stop Taking at Discharge)azithromycin 250 mg oral tablet (7 sources)Macrolide AntimicrobialStart: 08-03-2024 End: 09-08-3696Nkwdixvfvjlx 250 mg tablet Discontinued 0 PO daily 6 5 0 August 03, 2024 12:00am December 0752:53pm Bronchitis Bronchitis, not specified as acute or chronic Take 2 on day 1 and then take 1 forthe next 4 days (days 2-5)ceFAZolin (ANCEF) 2000 mg in dextrose 5 % 100 mL IVPB (1 source)Start: 11-12-2021 End: 49-68-2027wuGYIxnjl (ANCEF) 2000 mg in dextrose 5 % 100 mL IVPB dimenhyDRINATE 50 mg oral tablet (1 source)Start: 11-12-2021 End: 64-02-7809qmwojqlXRCVGMC (DRAMAMINE) tablet 50 mgdrospirenone 4 mg oral tablet (2 sources)ProgestinStart: 11-29-2020 End: 59-48-3192djiv 1 tablet by mouth once dailyDrospirenone (SLYND) 4 MG TABS Indications: Menorrhagia with irregular cycle Take 1 tablet by mouthdaily 84 tablet 3 11/29/2020 11/12/2021 Discontinued (Stop Taking at Discharge)0.4 ml enoxaparin sodium 100 mg/ml prefilled syringe (1 source)Low Molecular Weight HeparinStart: 11-12-2021 End: 57-06-8942emjbjgoman (LOVENOX) injection 40 mg2 ml fentaNYL 0.05 mg/ml injection (1 source)Opioid AgonistStart: 11-12-2021 End: 64-36-044927 mcg, IntraVENous, EVERY 5 MIN PRN, 2 doses, Starting on Fri11/12/21 at 1331, Until Discontinued, Pain Moderate (4-6), Pain Severe (7-10) For Phase I. If Phase II oral narcotics have been administered in the last 60 minutes, do not administer IV narcotics unless specifically approved by provider. PACU onlylevothyroxine sodium 0.1 mg oral tablet (20 sources)l-ThyroxineStart: 07-16-2023 End: 76-48-3610gnbx 1 tablet by mouth once dailyLevothyroxine 100 mcg tablet Discontinued 100 MCG PO Daily 90 90 3 July 16, 2023 11:22am July 06, 2024 7:45amStart: 18-48-9966fbxl 1 tablet by mouth once dailylevothyroxine (SYNTHROID) 125 MCG tablet Indications: Hypothyroidism, unspecified type Take 1 tablet by mouth daily 90 tablet 0 06/05/2021 ActiveStart: 09-04-2020 levothyroxine 175 mcg capsule 09/04/2020 take 6/wk skip Sun with water only on empty stomach, no other foods,drinks,or meds for 2hr before or after CONCEPCIÓN-1 MYLAN BRANDStart: 07-54-5281stmq 1 tablet by mouth once dailylevothyroxine (SYNTHROID) 175 MCG tablet TAKE 1 TABLET BY MOUTH EVERY DAY 0 07/17/2020 Active take 1 tablet by mouth once daily in the morningLevothyroxine Sodium 100 MCG 1 tablet in the morning on an empty stomach Orally Once a day for 90 days Active Levothyroxine Sodium Activetake 1 capsule by mouth once dailylevothyroxine 175 mcg capsule take 1 capsule (175 mcg) by oral route once dailymethylPREDNISolone 4 mg oral tablet (5 sources)CorticosteroidStart: 01-03-2025 End: 58-90-0619wmgp 1 tablet by mouth onceMethylprednisolone (Medrol (Artis)) 4 mg tablets,dose pack Discontinued 0 PO per package directions January 03, 2025 12:00am January 17, 2025 2:49pm Migraine headache Migraine, unspecified, not intractable, without status migrainosus PO PER PKG DIRoxyCODONE hydrochloride 5 mg oral tablet (1 source)Opioid AgonistStart: 11-12-2021 End: 57-21-8089zmlVIMPUW (ROXICODONE) immediate release tablet 5 mg phenazopyridine hydrochloride 100 mg oral tablet (1 source)Start: 11-12-2021 End: 41-28-4027ntiuvluvupcteld (PYRIDIUM) tablet 200 mgStart: 11-12-2021 End: 44-92-6259htgtjukgkgudyda (PYRIDIUM) tablet 200 mg Problems Active Problems Problem ClassificationProblemDateDocumented DateEpisodic/ChronicAbdominal pain (10 sources)Abdominal pain; Translations: [Unspecified abdominal pain]11-14-2023 EpisodicAnxiety disorders (15 sources)Anxiety; Translations: [Anxiety disorder, unspecified]07-06-2024 ChronicBlindness and vision defects (14 sources)Eye / vision finding; Translations: [Unspecified visual disturbance] Onset: 484130-11-8928OnyoxwpmRninlfw dysrhythmias (11 sources)Palpitations; Translations: [Palpitations]EpisodicConditions associated with dizziness or vertigo (14 sources)Dizziness and giddiness; Translations: [Dizziness]Onset: 12-26-2024 EpisodicHeadache; including migraine (12 sources)Migraine; Translations: [Migraine, unspecified, not intractable, without status migrainosus]Onset: 227187-78-4503DjvcsehXybwmoof; including migraine (11 sources)Headache; Translations: [New onset headache]82-33-4479Dxlrgqnl Headache; including migraine (2 sources)Headache; including migraine; Translations: [Headache, unspecified] Onset: 29-60-2815Afwjugnlvldkm and screening for infectious disease (20 sources)Exposure to Hepatitis B virus; Translations: [Contact with and (suspected) exposure to viral hepatitis]93-27-9880TmukaqvpUarbcns and fatigue (3 sources)Fatigue; Translations: [Chronic fatigue, unspecified]ChronicMalaise and fatigue (1 source)Weakness; Translations: [Weakness]Onset: 03-50-9155MqthjizhVubaszbsh disorders (3 sources)Irregular periods; Translations: [Irregular menstruation, unspecified]ChronicMood disorders (17 sources)Major depressive affective disorder, single episode, unspecified; Translations: [Depressive disorder]44-45-5923AzhhbwiDjodn circulatory disease (1 source)Orthostatic hypotension; Translations: [Orthostatic hypotension]Onset: 68-71-9837UkyimbwjQfjus female genital disorders (1 source)Pelvic congestion syndrome; Translations: [Other specified conditions associated with female genital organs and menstrual cycle]EpisodicOther gastrointestinal disorders (9 sources)Diarrhea; Translations: [Diarrhea, unspecified]68-43-4400Olqiuwoa Other gastrointestinal disorders (1 source)Diarrhea, unspecified; Translations: [Diarrhea]47-63-5185GrnadsbgYphyc lower respiratory disease (1 source)Shortness of breathEpisodicOther nervous system disorders (6 sources)Chiari malformation type I; Translations: [Compression of brain] 09-52-3885QkauvheJiooh nervous system disorders (1 source)Compression of brain; Translations: [Chiari I malformation (HCC)] Onset: 77-75-0580VbpjhzuApvrr nervous system disorders (1 source)Syringomyelia and syringobulbia; Translations: [Syringomyelia and syringobulbia (HCC)]Onset: 72-69-1721HffnugaMfiov nervous system disorders (2 sources)Postoperative pain ; Translations: [Other acute postprocedural pain] Onset: 90-28-7884PdwgmwlzWyujb non-traumatic joint disorders (1 source)Pain in unspecified jointEpisodicOther screening for suspected conditions (not mental disorders or infectious disease) (5 sources)Other specified abnormal findings of blood chemistry; Translations: [Encounter for screening for lipoid disorders]Onset: 50-24-7340HvjftfexKyele upper respiratory infections (6 sources)Pharyngitis; Translations: [Acute pharyngitis, unspecified]08-04-2024 EpisodicOvarian cyst (1 source)Complex cyst of left ovary; Translations: [Other ovarian cyst, left side]EpisodicResidual codes; unclassified (1 source)Family history of diseases of the skin and subcutaneous tissueEpisodic Superficial injury; contusion (10 sources)Contusion of left foot; Translations: [Contusion of left foot, initial encounter]61-48-5774EwzgrfrjPflgffg (14 sources)Near syncope; Translations: [Syncope and collapse]Onset: 01-14-2025 83-66-9699QptcyofeIgljfcd disorders (20 sources)Hyperthyroidism; Translations: [Thyrotoxicosis without mention of goiter or other cause, and without mention of thyrotoxic crisis or storm]Onset: 315936-03-0248UazvgoeGwtskuc disorders (4 sources)Disorder of thyroid gland; Translations: [Disorder of thyroid, unspecified]Onset: 97-55-9306LcegrdurSaxrvuzufjkl (1 source)B07.0 - Plantar wartUnclassified (1 source)WeakOnset: 39-85-1844Yocpx infection (13 sources)Verruca plantaris; Translations: [Plantar wart of right foot] Episodic Past or Other Problems Problem ClassificationProblemDateDocumented DateEpisodic/ChronicUnclassified (1 source)Cough R05.9Viral infection (1 source)COVID-19 Results Test NameValueInterpretationReference RangeFacilityMRI CERVICAL SPINE WO IVCONon 52-05-2821DCS CERVICAL SPINE WO IVCON* * *Final Report* * * DATE OF EXAM: Feb 21 2025 4:15PM [facility] 0297 - MRI CERVICAL SPINE WO IVCON / PROCEDURE REASON: Chiari I malformation (HCC) * * * * Physician Interpretation * * * * MRI THORACIC SPINE WO IVCON, MRI CERVICAL SPINE WO IVCON, MRI LUMBAR SPINE WO IVCON HISTORY: CSF hypotension, CSF leak (accession [id number]), Chiari with or without syrinx (accession [id number]), CSF hypotension, CSF leak (accession [id number]) - Syringomyelia or syringobulbia (accession [id number]), Chiari Malformation (accession [id number]), Spinal cord tethering suspected (accession [id number]) TECHNIQUE: MRI complete spine routine protocols without [...] presacral soft tissues are normal in appearance. 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 Unremarkable spinal cord. No evidence of focal extradural CSF accumulation. Scattered spondylosis without significant canal or foraminal compromise Cervical Anatomic Variant: None. Assume 7 cervical vertebrae with counting from the craniocervical junction. Thoracic/Lumbar Anatomic Variant: None. L4-5 is considered the level of the iliac crest and assume there are 5 lumbar-type vertebrae. Utility Appraiser: CABRERA Transcribe Date/Time: Feb 21 2025 5:16P Dictated by : GONSALO ALBERTS MD This examination was interpreted and the report reviewed and electronically signed by: GONSALO ALBERTS MD on Feb 21 2025 5:24PM EST [id number]n Hospital LUMBAR SPINE WO IVCON on 15-25-7966UIG LUMBAR SPINE WO IVCON* * *Final Report* * * DATE OF EXAM: Feb 21 2025 4:15PM [facility] 0303 - MRI LUMBAR SPINE WO IVCON / PROCEDURE REASON: Encounter for observation for other suspected diseases and conditions ruled out * * * * Physician Interpretation * * * * MRI THORACIC SPINE WO IVCON, MRI CERVICAL SPINE WO IVCON, MRI LUMBAR SPINE WO IVCON HISTORY: CSF hypotension, CSF leak (accession [id number]), Chiari with or without syrinx (accession [id number]), CSF hypotension, CSF leak (accession [id number]) - Syringomyelia or syringobulbia (accession [id number]), Chiari Malformation (accession [id number]), Spinal cord tethering suspected (accession [id number]) TECHNIQUE: MRI complete spine routine protocols without [...] presacral soft tissues are normal in appearance. 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 Unremarkable spinal cord. No evidence of focal extradural CSF accumulation. Scattered spondylosis without significant canal or foraminal compromise Cervical Anatomic Variant: None. Assume 7 cervical vertebrae with counting from the craniocervical junction. Thoracic/Lumbar Anatomic Variant: None. L4-5 is considered the level of the iliac crest and assume there are 5 lumbar-type vertebrae. Utility Appraiser: PSCB Transcribe Date/Time: Feb 21 2025 5:16P Dictated by : GONSALO ALBERTS MD This examination was interpreted and the report reviewed and electronically signed by: GONSALO ALBERTS MD on Feb 21 2025 5:24PM EST [id number]n Hospital THORACIC SPINE WO IVCONon 84-00-0597OLE THORACIC SPINE WO IVCON* * *Final Report* * * DATE OF EXAM: Feb 21 2025 4:15PM [facility] 0325 - MRI THORACIC SPINE WO IVCON / PROCEDURE REASON: Syringomyelia and syringobulbia (HCC) * * * * Physician Interpretation * * * * MRI THORACIC SPINE WO IVCON, MRI CERVICAL SPINE WO IVCON, MRI LUMBAR SPINE WO IVCON HISTORY: CSF hypotension, CSF leak (accession [id number]), Chiari with or without syrinx (accession [id number]), CSF hypotension, CSF leak (accession [id number]) - Syringomyelia or syringobulbia (accession [id number]), Chiari Malformation (accession [id number]), Spinal cord tethering suspected (accession [id number]) TECHNIQUE: MRI complete spine routine protocols without [...] presacral soft tissues are normal in appearance. 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 Unremarkable spinal cord. No evidence of focal extradural CSF accumulation. Scattered spondylosis without significant canal or foraminal compromise Cervical Anatomic Variant: None. Assume 7 cervical vertebrae with counting from the craniocervical junction. Thoracic/Lumbar Anatomic Variant: None. L4-5 is considered the level of the iliac crest and assume there are 5 lumbar-type vertebrae. Utility Appraiser: CABRERA Transcribe Date/Time: Feb 21 2025 5:16P Dictated by : GONSALO ALBERTS MD This examination was interpreted and the report reviewed and electronically signed by: GONSALO ALBERTS MD on Feb 21 2025 5:24PM EST [id number] Health System Ontario HospitalFP ECG *CARDIOLOGY ONLY* on 37-10-0524TOY ECG *CARDIOLOGY ONLY*[facility] [place] [address] [place] [address] Electrocardiograph Report Signed Patient: Cristela Sanchez MR#: [id number] 3 : 1980 Acct:[id number] Age/Sex: 44 / F ADM Date: 02/10/25 Loc: [facility] Room: Type: [facility] Attending Dr: Cassandra Bright MD Ordering Provider: Cassandra Bright MD Date of Service: 02/10/25 ECG/FPG ECG *CARDIOLOGY ONLY*: R42 - Dizziness and giddiness Copies to: Test Reason : Blood Pressure : */* mmHG Vent. Rate : 75 BPM Atrial Rate : 75 BPM P-R Int : 158 ms QRS Dur : 84 ms QT Int : 386 ms P-R-T Axes : -7 20 20 degrees QTcB Int : 431 ms Normal sinus rhythm with sinus arrhythmia Low voltage QRS Borderline ECG Confirmed by Cassandra Bright ([id number]) on 02/10/2025 10:42:35 PM Referred By: Electronically Signed By: Cassandra Bright Transcribed By: MUS Signed By Cassandra Bright MD 5 2242[facility] Physician GroupBASIC METABOLIC PANELon 29-67-1434Ralbg gap [Moles/Vol]6 mmol/LNormal5-15[facility] HospitalComment on above: Performed By: #### COVFLR #### [facility] ([address] [place] [address] VIRCalcium [Mass/Vol]8.6 mg/dLNormal8.5-10.5POhioHealth Mansfield HospitalComment on above:Performed By: #### COVFLR #### [facility] ([address] [place] [address] VIRChloride [Moles/Vol]104 mmol/BTaqqay67-105MnvVljtarMethodist Children'S HospitalComment on above:Performed By: #### COVFLR #### [facility] ([address] [address] VIRCO2 [Moles/Vol]26 mmol/QHcctdd95-67NnfFpbyshOhioHealth Mansfield HospitalComment on above:Performed By: #### COVFLR #### [facility] ([address] [address] VIRCreatinine [Mass/Vol]0.63 mg/dLNormal0.40-1.00ProMethodist Children'S HospitalComment on above:Result Comment: METHOD TRACEABLE TO IDMS STANDARDPerformed By: #### COVFLR #### [facility] ([address] [address] VIREGFR (CKD-EPI) NON-RACE DEPENDENT>^90Normal>=60ProMethodist Children'S HospitalComment on above:Result Comment: eGFR not reported due to non- numeric value for Creatinine. Reported eGFR is based on the CKD-EPI 2021 equation that does not use a race coefficient.Performed By: #### COVFLR #### [facility] ([address] [address] VIRGlucose [Mass/Vol]81 mg/zIRubluj92-72ZqdZebwsmMethodist Children'S HospitalComment on above:Performed By: #### COVFLR #### [facility] ([address] [address] VIRPotassium [Moles/Vol]4.1 mmol/LNormal3.5-5.0ProMethodist Children'S HospitalComment on above:Performed By: #### COVFLR #### [facility] ([facility]) [address] [place] [address]. [place] [address] VIRSodium [Moles/Vol]136 mmol/JRouvoc342-556NklBjcmag [facility]remont HospitalComment on above:Performed By: #### COVFLR #### [facility] ([address] [place] [address] VIRUrea nitrogen [Mass/Vol]11 mg/dLNormal5-23ProMethodist Children'S HospitalComment on above:Performed By: #### COVFLR #### [facility] ([address] [address] VIRCBC WITH AUTO DIFFERENTIALon 90-32-4614SSZXDDMVY ABSOLUTE COUNT (10*3/UL) BY AUTOMATED COUNT0.0 10*3/uLNormal0.0-0.2ProMedFountain Valley Regional Hospital and Medical CenterComment on above:Performed By: #### CBCA #### [facility] ([address] [address] VIRBASOPHILS RELATIVE PERCENT BY AUTOMATED COUNT0.4 %Normal [facility] NorthComascension [place] on above:Performed By: #### CBCA #### [facility] ([address] [address] VIRCELLAVISION DIFFERENTIAL TYPEAUTOMATED DIFFERENTIALNormal [facility] NorthComment on above:Performed By: #### CBCA #### [facility] ([address] [address] VIREosinophils (Bld) [#/Vol]0.0 10*3/uLNormal0.0-0.4[facility] NorthComascension [place] on above:Performed By: #### CBCA #### [facility] ([address] [place] [address] VIREOSINOPHILS RELATIVE PERCENT BY AUTOMATED COUNT0.8 %Normal [facility] NorthComment on above:Performed By: #### CBCA #### [facility] ([address] [address] VIRErythrocyte distribution width (RBC) [Ratio]13.4 %Normal 11.5-15ProMethodist Children'S HospitalComment on above:Performed By: #### CBCA #### [facility] ([address] [address] VIRHematocrit (Bld) [Volume fraction]38.9 %Bttxod78-96 [facility] NorthComment on above:Performed By: #### CBCA #### [facility] ([address] [address] VIRHemoglobin (Bld) [Mass/Vol]13.1 g/mBAvvdyk14.7-15.5 [facility] NorthComment on above:Performed By: #### CBCA #### [facility] ([address] [address] VIRLYMPHOCYTES ABSOLUTE COUNT (10*3/UL) BY AUTOMATED COUNT0.9 10*3/uLLow1.0-3.5Pro[facility] HospitalComment on above:Performed By: #### CBCA #### [facility] ([address] [address] [address] VIRLYMPHOCYTES RELATIVE PERCENT BY AUTOMATED COUNT20.2 %Normal [facility] NorthComment on above:Performed By: #### CBCA #### [facility] ([address] [address] VIRH (RBC) [Entitic mass]30.0 iwWjwjis69-67CtmIkeijqMethodist Children'S HospitalComment on above:Performed By: #### CBCA #### [facility] ([address] [address] VIRMCHC (RBC) [Mass/Vol]33.7 g/rGXdrbii42-87AfoUsnwxuMethodist Children'S HospitalComment on above:Performed By: #### CBCA #### [facility] ([address] [place] [address] VIRMCV (RBC) [Entitic vol]89 jLMilgzc80-133KexEasakm Fremont HospitalComment on above:Performed By: #### CBCA #### [facility] ([address] [place] [address] VIRMONOCYTES ABSOLUTE COUNT (10*3/UL) BY AUTOMATED COUNT0.4 10*3/uLNormal0.0-0.9[facility] NorthComment on above:Performed By: #### CBCA #### [facility] ([address] [place] [address] VIRMONOCYTES RELATIVE PERCENT BY AUTOMATED COUNT8.7 %Normal [facility] NorthComment on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 Hospitalerum or plasma anion gap determinationon 90-36-6375Knqvb gap [Moles/Vol] Serum or plasma anion gap determinationEast [place] Regional Hospitalerum or plasma total cholesterol/high density lipoprotein (HDL) cholesterol mass shivani 87-85-4344Zdureyxnere.total/Cholesterol in HDL [Mass ratio]Serum or plasma total cholesterol/high density lipoprotein (HDL) cholesterol mass ratBlanchard Valley Health SystemComment on above:3.3 - 4.4 LOW RISK4.4 - 7.1 AVERAGE RISK7.1 - 11.0 MODERATE RISK>11.0 HIGH RISKAlanine aminotransferase [Enzymatic activity/volume] in Serum or PlasmaOrdered By: Gonsalo Carpenter on 13-91-7801PZX [Catalytic activity/Vol]13 U/L7-52[facility] SystemAlbumin [Mass/volume] in Serum or Plasma by Bromocresol green (BCG) dye binding metho Ordered By: Gonsalo Carpenter on 09-47-4050Suvblln BCG dye [Mass/Vol]4.5 g/dL 3.5-5.7FBlanchard Valley Health System [facility] HospitalAlkaline phosphatase [Enzymatic activity/volume] in Serum or PlasmaOrdered By: Gonsalo Carpenter on 43-30-5828IWI [Catalytic activity/Vol]37 U/H78-111MdsmrgsryBlanchard Valley Health SystemAspartate aminotransferase [Enzymatic activity/volume] in Serum or PlasmaOrdered By: Gonsalo Carpenter on 56-55-6224BTF [Catalytic activity/Vol]17 U/D26-50NerjtoezwBlanchard Valley Health SystemBasophils Auto (Bld) [#/Vol]Ordered By: Gonsalo Carpenter on 82-82-7368Ilrpcbpcm (Bld) [#/Vol]0.0 10*3/uL0.0-0.2FBlanchard Valley Health System [facility] HospitalBasophils/100 WBC Auto (Bld)Ordered By: Gonsalo Carpenter on 06-17-2023 Basophils/100 WBC (Bld)0.5 %.[facility] SystemBilirubin.total [Mass/volume] in Serum or PlasmaOrdered By: Gonsalo Carpenter on 06-17-2023 Bilirubin [Mass/Vol]0.4 mg/dL0.3-1.0[facility] SystemC reactive protein [Mass/volume] in Serum or PlasmaOrdered By: Gonsalo Carpenter on 06-17-2023 CRP [Mass/Vol]< 0.5 mg/dL0.0-0.5FBlanchard Valley Health System [facility] HospitalCT biopsy Ordered By: Gonsalo Carpenter on 59-65-4093XO biopsy2.8 U/L3.3-10.3FBlanchard Valley Health System [facility] HospitalComment on above:Performed at: [facility] [id number] Director: Van Newman PhD, Phone: [phone] [Mass/volume] in Serum or PlasmaOrdered By: Gonsalo Carpenter on 07-93-2837Nadlvgx [Mass/Vol]9.2 mg/dL8.6-10.3FBlanchard Valley Health System [facility] Carbon dioxide, total [Moles/volume] in Serum or PlasmaOrdered By: Gonsalo Carpenter on 81-15-8872YS3 [Moles/Vol]28.3 mmol/L21.0-31.0[facility] SystemChloride [Moles/volume] in Serum or PlasmaOrdered By: Gonsalo Carpenter on 30-68-8041Njsgcuiu [Moles/Vol]105 mmol/J45-801FjpkhwrzvBlanchard Valley Health SystemCreatine kinase [Enzymatic activity/volume] in Serum or Plasma Ordered By: Gonsalo Carpenter on 14-34-1625TM [Catalytic activity/Vol]79 U/L30-223 [facility] SystemCreatinine [Mass/volume] in Serum or Plasma Ordered By: Gonsalo Carpenter on 68-43-8796Jadcabjsjk [Mass/Vol]0.69 mg/dL0.60-1.20 [facility] SystemEosinophils Auto (Bld) [#/Vol]Ordered By: Gonsalo Carpenter on 11-41-7941Uvlkuyguvbe (Bld) [#/Vol]0.0 10*3/uL0.0-0.45 [facility] SystemEosinophils/100 WBC Auto (Bld)Ordered By: Gonsalo Carpenter on 61-46-5875Anykqzwxhaq/100 WBC (Bld)1.2 %.[facility] SystemErythrocyte distribution width Auto (RBC) [Ratio]Ordered By: Gonsalo Carpenter on 53-00-0552Cjgawsxuakm distribution width (RBC) [Ratio]13.0 % 11.9-15.3FBlanchard Valley Health System [facility] HospitalErythrocyte sedimentation rate by Photometric methodOrdered By: Gonsalo Carpenter on 66-31-1589ITP Photometric method (Bld) [Velocity]22 mm/hr0-19[facility] SystemGlobulin Calc (S) [Mass/Vol]Ordered By: Gonsalo Carpenter on 88-17-4698Gqatgufb (S) [Mass/Vol]2.9 g/dLBlanchard Valley Health SystemGlucose [Mass/volume] in Serum or Plasma Ordered By: Gonsalo Carpenter on 72-33-4923Nzztufz [Mass/Vol]84 mg/uP08-038 [facility] SystemComment on above:ADA recommended reference rangeRandom Glucose Reference Range is dependent on time and content of last meal. Glucose of more than 200 mg/dL in a nonstressed, ambulatory subject supports the diagnosisof Diabetes Mellitus.Hematocrit Auto (Bld) [Volume fraction]Ordered By: Gonsalo Carpenter on 19-62-6077Cqfweajbpx (Bld) [Volume fraction]41.5 %34.0-46.4FBlanchard Valley Health System [facility] HospitalHemoglobin [Mass/volume] in BloodOrdered By: Gonsalo Carpenter on 29-64-2406Okvsgpchoz (Bld) [Mass/Vol]13.9 g/dL11.8-15.4FBlanchard Valley Health System [facility] HospitalLeukocytes [#/volume] corrected for nucleated erythrocytes in Blood by Automated coun Ordered By: Gonsalo Carpenter on 05-15-1713ETB corrected for nucl RBC Auto (Bld) [#/Vol]4.1 10*3/uL3.8-11.6FBlanchard Valley Health System [facility] HospitalLymphocytes Auto (Bld) [#/Vol]Ordered By: Gonsalo Carpenter on 31-49-3969Fjppsbcplqq (Bld) [#/Vol] 1.3 10*3/uL1.00-4.8[facility] SystemLymphocytes/100 WBC Auto (Bld)Ordered By: Gonsalo Carpenter on 33-16-0575Obpzthdvkwh/100 WBC (Bld)31.0 %. [facility] HospitalH Auto (RBC) [Entitic mass]Ordered By: Gonsalo Carpenter on 03-80-6875OLF (RBC) [Entitic mass]30.0 pg24.7-34.3FBlanchard Valley Health System [facility] HospitalMCHC Auto (RBC) [Mass/Vol]Ordered By: Gonsalo Carpenter on 25-77-2094TXUD (RBC) [Mass/Vol]33.6 g/dL32.0-35.0[facility] SystemMCV Auto (RBC) [Entitic vol]Ordered By: Gonsalo Carpenter on 95-82-7905VQB (RBC) [Entitic vol]89.3 aM99-615WbqqlxhneBlanchard Valley Health SystemMonocytes Auto (Bld) [#/Vol]Ordered By: Gonsalo Carpenter on 80-65-7892Mflvsmvmu (Bld) [#/Vol]0.3 10*3/uL0.0-0.8[facility] SystemMonocytes/100 WBC Auto (Bld) Ordered By: Gonsalo Carpenter on 39-61-3746Qgxdtoyyu/100 WBC (Bld)7.3 %.[facility] SystemNeutrophils Auto (Bld) [#/Vol]Ordered By: Gonsalo Carpenter on 38-76-6567Jvvakrpwjiy (Bld) [#/Vol]2.4 10*3/uL1.8-7.7FBlanchard Valley Health System [facility] HospitalNeutrophils/100 WBC Auto (Bld)Ordered By: Gonsalo Carpenter on 04-08-5221Utmzgzzywtb/100 WBC (Bld)60.0 %.[facility] SystemNo Panel InformationOrdered By: Gonsalo Carpenter on 07-29-2824Tfkv-Nuclear Antibody Comment 2See comment.[facility] SystemComment on above:Pattern Potential Disease Association Homogeneous Systemic Lupus Erythematosus, Drug Induced Systemic Lupus Erythematosus, Chronic Autoimmune hepatitis, Juvenile Idiopathic Arthritis Speckled Sjogren Syndrome, Systemic Lupus Erythematosus, Subacute Cutaneous Lupus, Lupus, Congenital Heart Block, Mixed Connective Tissue Disease, Scleroderma-diffuse, Scleroderma- Autoimmune Myositis Overlap Syndrome, Systemic Lupus Hkfpoufgjyhct-Weyvbeepxfe-Igccqnrofc Myositis Overlap Syndrome, Systemic Autoimmune Rheumatic Disease, Undifferentiated Connective Tissue Disease Nucleolar Systemic Sclerosis, Scleroderma-Autoimmune Myositis Overlap Syndrome, Sjogren Syndrome, Raynaud phenomenon, Pulmonary Arterial Hypertension, Systemic Autoimmune Rheumatic Disease, Cancer Centromere Scleroderma-CREST, Limited Cutaneous SSc, Raynaud's Phenomenon, Primary Biliary Cholangit is Nuclear Dot Primary Biliary Cholangitis Nuclear Primary Biliary Cholangitis, AutoimmuneMembrane Hepatitis/Liver disease, Systemic Autoimmune Rheumatic Disease, Autoimmune Cytopenias, Linear Scleroderma, Antiphospholipid Syndrome Performed at: [facility] [address] [id number] Director: Van Newman PhD, Phone: [phone] GFR (CKD-EPI)> 60.0 mL/MinBlanchard Valley Health SystemPharmacy Creatinine Clearance (ChemN/AFBlanchard Valley Health System [facility] HospitalNucleated erythrocytes [Presence] in Blood by Automated count Ordered By: Gonsalo Carpenter on 81-30-6500Kskeevgqc RBC Auto Ql (Bld)0.3 /100{WBC} 0-0.5FBlanchard Valley Health System [facility] HospitalPlatelet mean volume Auto (Bld) [Entitic vol]Ordered By: Gonsalo Carpenter on 14-38-1585Smacahrl mean volume (Bld) [Entitic vol]8.1 fL6.3-10.7FBlanchard Valley Health System [facility] HospitalPlatelets Auto (Bld) [#/Vol] Ordered By: Gonsalo Carpenter on 42-02-6192Jcjgymijw (Bld) [#/Vol]240 10*3/uL 150-450Bl[facility] SystemPotassium [Moles/volume] in Serum or PlasmaOrdered By: Gonsalo Carpenter on 31-45-4470Chpnlgftp [Moles/Vol]4.5 mmol/L 3.5-5.1FBlanchard Valley Health System [facility] HospitalProtein [Mass/volume] in Serum or Plasma Ordered By: Gonsalo Carpenter on 30-20-1840Mexzwia [Mass/Vol]7.4 g/dL6.4-8.9 [facility] SystemRBC Auto (Bld) [#/Vol]Ordered By: Gonsalo Carpenter on 49-77-7899ZOO (Bld) [#/Vol]4.65 10*6/uL3.60-5.00[place] Regional Hospitalerum homogeneous pattern antinuclear antibody (NEREYDA) titerOrdered By: Gonsalo Carpenter on 34-26-1722Gwjzjvprvu nuclear Ab pattern (S) [Titer]1:320. [facility] SystemComment on above:ICAP nomenclature: AC-1Serum nuclear antibody titerOrdered By: Gonsalo Carpenter on 56-00-6745Fqstsrj Ab (S) [Titer]Positive.[facility] SystemComment on above:Negative <1:80 Borderline 1:80 Positive >1:80Serum or plasma albumin/globulin mass ratio Ordered By: Gonsalo Carpenter on 85-35-0621Bnweain/Globulin [Mass ratio]1.6 {ratio} [facility] [place] [facility] Hospitalerum or plasma anion gap determinationOrdered By: Gonsalo Carpenter on 31-23-7573Nosgq gap [Moles/Vol]10.2 mmol/L6.0-15.0 [facility] [place] [facility] Hospitalodium [Moles/volume] in Serum or PlasmaOrdered By: Gonsalo Carpenter on 60-69-5204Tohkix [Moles/Vol]139 mmol/G269-535UomkevhghBlanchard Valley Health SystemUrea nitrogen [Mass/volume] in Serum or PlasmaOrdered By: Gonsalo Carpenter on 33-68-7133Oncu nitrogen [Mass/Vol]10 mg/dL7-25Bl[facility] SystemWBC Auto (Bld) [#/Vol]Ordered By: Gonsalo Carpenter on 80-83-3059GMI (Bld) [#/Vol]4.1 10*3/uL3.8-11.6FBlanchard Valley Health System [facility] Hepatitis A virus Ab [Presence] in Serum by Immunoassayon 02-42-4535LJH Ab IA Ql (S)See commentBlanchard Valley Health SystemComment on above:SEE SCANNED REPORTHepatitis B virus surface Ab [Presence] in Serumon 75-56-2774BBC surface Ab Ql (S)See commentBlanchard Valley Health SystemComment on above:SEE SCANNED REPORTHepatitis B virus surface Ag [Presence] in Serum or Plasma by Immunoassayon 41-23-5111SXX surface Ag IA QlSee commentFirelands Regional Medical CenterComment on above:SEE SCANNED REPORTLaboratory - Chemistry and Chemistry - challengeon 95-55-6391Wqcm T4 [Mass/Vol]0.98 ng/dL0.76-1.46[facility] SystemTSH Qn4.138 m[IU]/L0.358-3.740[facility] SystemNo Panel Informationon 52-40-1007Yhnwlzand B Core Total AntibodySee commentBlanchard Valley Health SystemComment on above:SEE SCANNED REPORT Miscellaneous TestSee commentBlanchard Valley Health SystemComment on above: SEE SCANNED REPORTQuick Strepon 03-21-2022. pyogenes Org specific cx Ql (Throat)NegativeNoCibiem Other Quick StrepNoCibiem Other 559-5660PXHS-ZhI-2 (COVID-19) RNA ANRDEA+probe Ql (Resp)on 56-12-3870JMCO-CoV-2 (COVID-19) RNA ANDREA+probe Ql (Unsp spec)PositiveNoCibiem Other HCG, ,Urineon 26-01-6570Dhjf HCG ( test) Ql (U)NegativeNormalNEGMercy Stamford HospitalComment on above:Result Comment: Specimens with hCG levels near the threshold of the test (25 mIU/mL) may give a negative or indeterminate result. In such cases, another test should be performed with a new specimen in 48-72 hours. If early is suspected clinically in this setting, correlation with quantitative serum b-hCG level is suggested. [facility] has confirmed the use of plasma for this test. This has not been cleared or approved by the U.S. Food and Drug Administration. The FDA has determined that such clearance is not necessary.Performed By: #### UHCG #### [facility] [address] [place] [address] [place] [address] Medical Office Assistant: Imtiaz Monet MDHemoglobin and Hematocriton 12-67-6531Xxfrmckvbb (Bld) [Volume fraction]37.6 %36.3 - 47.1 %LIFEPOINT HOSPITALSHemoglobin (Bld) [Mass/Vol]12.5 g/dL11.9 - 15.1 g/dLBON SPEARFISH REGIONAL HOSPITALHgb/Hcton 31-91-6671Xdhrjunnza (Bld) [Volume fraction]37.6 %Normal 36.3-47.1[facility] Stam[facility] HospitalComment on above:Performed By: #### HH #### [facility] [address] [place] [address] Medical Office Assistant: Imtiaz Monet MDHemoglobin (Bld) [Mass/Vol]12.5 g/dLNormal 11.9-15.1MercUniversity of Connecticut Health Center/John Dempsey HospitalComment on above:Performed By: #### HH #### [facility] [address] [place] [address] Medical Office Assistant: SELAM Patriciaregnancy, Urineon 94-88-2416Twlk HCG ( test) Ql (U)NegativeNEGATIVELIFEPOINT HOSPITALSComment on above:Specimens with hCG levels near the threshold of the test (25 mIU/mL) may give a negative or indeterminate result. In such cases, another test should be performed with a new specimen in 48-72 hours. If early is suspected clinically in this setting, correlation with quantitative serum b-hCG level is suggested. [facility] has confirmed the use of plasma for this test. This has not been cleared or approved by the U.S. Food and Drug Administration. The FDA has determined that such clearance is not necessary. [facility] CL[facility]ICSurgical Pathologyon 08-17-0705Dzqpchpc Pathology(NOTE) -- Diagnosis -- UTERUS, CERVIX, BILATERAL FALLOPIAN [...] fallopian tubes reveals unremarkable appearing cut surfaces. Front End Software Engineer sections 11c as follows: 1 anterior endomyometrium, 2 posteror endomyometrium, 3 inside sales representative sections of markedly vascularized myometrium, 4 anterior cervix, 5 posterior cervix, 6-8 inside sales representative left fallopian tube, 9-11 inside sales representative right fallopian tube. tm Microscopic Description Microscopic examination performed. SURGICAL PATHOLOGY CONSULTATION Patient Name: CRISTELA SANCHEZ [facility] Rec: [id number] Path Number: [id number] [facility] ANATOMIC PATHOLOGY [address] [place] [address]. [place], [place] [address] NoMercy Health West HospitalComment on above:Performed By: #### PPPVS #### [facility] [address] [place] [address] Medical Office Assistant: Uri Rangel MDUS PELVIS COMPLETE NON-OB TRANSABDOMINAL AND TRANSVAGINALon 15-68-9289VG PELVIS COMPLETE NON-OB TRANSABDOMINAL AND TRANSVAGINALEXAMINATION: TRANSABDOMINAL AND TRANSVAGINAL PELVIC ULTRASOUND 07/03/2021 TECHNIQUE: [...] by: Chai Hendrickson Jr., DO Signed by: Chia Hendrickson Jr., DO 07/03/21 Final resultNormKettering Health Behavioral Medical CenterThyroxine T4on 53-15-0506Y2 [Mass/Vol]6.9 ug/dLNormal4.5-10.9[facility] HospitalComment on above:Performed By: #### T4 #### [facility] [address] [place] [address] Medical Office Assistant: Uri Rangel MD #### TSH #### [facility] [address] [place] [place] [address] Medical Office Assistant: Imtiaz Monet MDT4Ordered By: Wong Cade on 30-33-8096W9 [Mass/Vol]6.9 ug/dL4.5 - 10.9 ug/dLMercy Health St. [facility] PathCentral Phone: [facility] PathCentral Phone: TSP without ReflexOrdered By: Wong Cade on 66-46-5736Iffytbpkahftsk and review of laboratory resultsAbnoNovant Health Charlotte [facility] PathCentral Phone: TS Qn0.12 m[IU]/LLowMercy Health St. [facility] PathCentral Phone: [facility] PathCentral Phone: Thyroid Stim. Horm.on 31-01-3254HRP Qn0.12 m[IU]/LLow 0.30-5.00[facility] HospitalComment on above:Performed By: #### T4 #### [facility] [address] [place] [address] Medical Office Assistant: Uir Rangel MD #### TSH #### [facility] [address] [place] [address] Medical Office Assistant: Imtiaz Monet MDUS NON OB TRANSVAGINALon 94-36-1626RW NON OB TRANSVAGINALUTERUS:anteverted, homogeneous echo pattern ? ENDO:1.1cm in thickness ? RT. OVARY:seen, wnl ? LT. OVARY:seen, wnl ? Prominent vessels in both adnexal regions with increase in vascularity, ? Vaginal congestion ? Small amount of free fluid visualized in posterior cul-de-sac Interpreted by: Narda Wei APRN - MARTIN Arango DO Signed by: Jaqui Arango DO 11/30/20 Final resultNoAdams County Regional Medical CenterT4Ordered By: Wong Cade on 04-40-9733C1 [Mass/Vol]8.6 ug/dL4.5 - 10.9 ug/dLMercy Health St. [facility] [employer] Work Phone: [facility] Health Work Phone: TSG without ReflexOrdered By: Wong Cade on 18-61-5350Hzlvczdkjvwaic and review of laboratory resultsAbnoNovant Health Charlotte Orthopaedic Hospital Health Work Phone: TS Qn0.01 m[IU]/LLowMorrow County Hospital Work Phone: [facility] Work Phone: aLTOrdered By: Wong Cade on 51-54-2768BXI [Catalytic activity/Vol]12 U/L5 - 33 U/LMercy Health Work Phone: cA 125Ordered By: Narda Wei on 34-10-2222IU [address] U/mL<38Ohio[facility] Shelby HospitalBirthday Slam Phone: cBCOrdered By: Wong Cade on 61-74-5185Krqsvoslon (Bld) [Volume fraction]37.7 %36.3 - 47.1 %mohchi Phone: Hemoglobin.gastrointestinal spec 1 Ql (Stl)11.8 g/dL Low11.9 - 15.1 g/dLOhiohealth Shelby HospitalBirthday Slam Phone: Interpretation and review of laboratory results AbnormalOhiohealth Shelby HospitalBirthday Slam Phone: MCH (RBC) [Entitic mass]27.3 pg25.2 - 33.5 pgOhiohealth Shelby HospitalBirthday Slam Phone: MCHC (RBC) [Mass/Vol]31.3 g/dL28.4 - 34.8 g/dLOhiohealth Shelby HospitalBirthday Slam Phone: MCV (RBC) [Entitic vol]87.3 fL82.6 - 102.9 fLmohchi Phone: NRBC Automated0.00.0 per 100 WBCOhiohealth Shelby HospitalBirthday Slam Phone: platelet distribution width (Bld) [Ratio]13.1 %11.8 - 14.4 %mohchi Phone: platelet mean volume (Bld) [Entitic vol]9.5 fL8.1 - 13.5 fLOhiohealth Shelby HospitalBirthday Slam Phone: platelets (Bld) [#/Vol]260 10*3/uLmohchi Phone: RBC (Bld) [#/Vol]4.32 10*6/uL3.95 - 5.11 m/Five minutes Phone: WBC (Bld) [#/Vol]6.9 10*3/mohchi Phone: cEAOrdered By: Narda Wei on 55-40-9356INJ6.3 ng/mL <3.9[employer] Work Phone: comment on above:The Imani ECLIA assay is used. Results obtained with different assay methods cannot be used interchangeably. Laboratory - Chemistry and Chemistry - challengeOrdered By: Wong Cade on 26-15-6617Q6 [Mass/Vol]7.1 ug/dLInvalid Interpretation nxtControl Work Phone: laboratory - Chemistry and Chemistry - challengeon [id number] [Catalytic activity/Vol]12.0 U/LInvalid Interpretation Code reBounces T3 [Mass/Vol]75.0 ng/dLInvalid Interpretation Code reBounces TSI Qn<0.01 LInvalid Interpretation [employer] Laboratory - Hematology and Cell countson 08-25-2020 Erythrocyte distribution width (RBC) [Ratio]13.10 %Invalid Interpretation Code reBounces ESR (Bld) [Velocity]18.0 mm/hInvalid Interpretation [employer] Hematocrit (Bld) [Volume fraction]37.70 %Invalid Interpretation [employer] Hemoglobin (Bld) [Mass/Vol]11.80 g/dLInvalid Interpretation [employer] MCH (RBC) [Entitic mass]27.30 pgInvalid Interpretation [employer] MCHC (RBC) [Mass/Vol]31.30 g/dLInvalid Interpretation [employer] MCV (RBC) [Entitic vol]87.30 fLInvalid Interpretation [employer] Platelets (Bld) [#/Vol]260.0 10*3/uLInvalid Interpretation [employer] RBC (Bld) [#/Vol]4.320 10*6/uLInvalid Interpretation [employer] WBC (Bld) [#/Vol]6.90 10*3/uLInvalid Interpretation [employer] No Panel Informationon 12-61-2075tqAgobpnk Interpretation [employer] 0.30 IU/LInvalid Interpretation Code0 - 0.55reBounces Sedimentation RateOrdered By: Wong Cade on 89-37-1440Dfg Rate18 mm0 - 20 mmOhiohealth Shelby HospitalBirthday Slam Phone: T3Ordered By: Wong Cade on 55-19-5595Q7, Total75 ng/dL60 - 181 ng/dLOhiohealth Shelby HospitalBirthday Slam Phone: TSH without ReflexOrdered By: Wong Cade on 63-01-3480Wnrhcxipzplfly and review of laboratory resultsAbnormCopper Springs East HospitalBirthday Slam Phone: TSH Qnm[IU]/LLowOhiohealth Shelby HospitalBirthday Slam Phone: US NON OB TRANSVAGINALOrdered By: Narda Wei on . Complex indeterminate cystic structure in the left ovary measuring up to 2.7 cm which could represent a hemorrhagic cyst. Follow-up pelvic ultrasound recommended in 6-12 weeks. If unchanged, continue follow-up with ultrasound or consider contrast-enhanced pelvic MRI. If these do not confirm endometrioma or dermoid, consider surgical evaluation/gynecological surgical consultation. 2. Normal appearance of the right ovary. 3. Endometrial stripe thickness measuring 1.2 cm, within normal limits. 4. Anteroflexed uterus. The findings were sent to the Radiology Results Communication Center at 1:55pm on 08/24/2020to be communicated to a licensed caregiver.mohchi Phone: eXAMINATION: PELVIC ULTRASOUND 08/24/2020 TECHNIQUE: Transvaginal pelvic ultrasound was performed. Color Doppler evaluation was performed. COMPARISON: None HISTORY: ORDERING SYSTEM PROVIDED HISTORY: Irregular menses 39-year-old female with irregular menses FINDINGS: Measurements: Uterus: 9.1 x 6.5 x5.0 cm. Endometrial stripe: 1.2 cm. Right Ovary: [...] ovary. Free Fluid: No evidence of free fluid.mohchi Phone: edi, [facility] Incoming Radiant Results From [employer] - 08/24/2020 1:58 PM EDT EXAMINATION: PELVIC [...] not confirm endometrioma or dermoid, consider surgical evaluation/gynecological surgical consultation. 2. Normal appearance of the right ovary. 3. Endometrial stripe thickness measuring 1.2 cm, within normal limits. 4. Anteroflexed uterus. The findings were sent to the Radiology Results Communication Center at 1:55 pm on 08/24/2020to be communicated to a licensed caregiver. mohchi Phone: mohchi Phone: tsh without ReflexOrdered By: Narda Wei on 06-52-1812Ninytryrygnnuf and review of laboratory resultsAbnocaromont healthmohchi Phone: tsh Qn0.02 m[IU]/[facility] Phone: Vital Signs Date TimeVital SignValuePerforming DstrhpocoJdgakvet72-69-9098 14:08-0400 Diastolic blood pjmfvpod10 mm[Hg]Smiley Lopez APRN Work Phone: [facility]10-30-2025 14:08-0400 Systolic blood jswfepmz619 mm[Hg]Smiley Lopez APRN Work Phone: [phone]10-30-2025 14:07-0400 Body ewrcnp430.72 cmSmiley Lopez APRN Work Phone: [phone]10-30-2025 14:07-0400 Body mass index (BMI) [Ratio]30.4 kg/o7ExxtrnhcSmiley Lopez ENDLESS TRACK VEHICLE SUPERVISOR Work Phone: [phone]10-30-2025 14:07-0400 Body bzoyhs67.71 kgSmiley Lopez APRN Work Phone: [phone]10-30-2025 14:07-0400 Heart rate67 /Ervin Urrutiarbacher ENDLESS TRACK VEHICLE SUPERVISOR Work Phone: [phone] [place], [place] 7646310-30-2025 14:07-0400 Respiratory rate18 /Ervin Urrutiarbacher ENDLESS TRACK VEHICLE SUPERVISOR Work Phone: [phone] [place], [place] [address]10-30-2025 14:07-0400 SaO2% (BldA) [Mass fraction]99 %Smiley Urrutiaranjeetr ENDLESS TRACK VEHICLE SUPERVISOR Work Phone: [phone]10-06-2025 14:20-0400 Body kemmxy354.72 cmSmiley Morrisacher ENDLESS TRACK VEHICLE SUPERVISOR Work Phone: [phone])[address] [place], [place] 0675510-06-2025 14:20-0400 Body mass index (BMI) [Ratio]30.5 kg/z5LgwtthnbSmiley Urrutiarbacher ENDLESS TRACK VEHICLE SUPERVISOR Work Phone: 1(111)[address] [place], [place] 0675510-06-2025 14:20-0400 Body bjonuhmwxoa47.2 [degF]Smiley Urrutiaranjeetr ENDLESS TRACK VEHICLE SUPERVISOR Work Phone: [phone])[address] [place], [place] 0675510-06-2025 14:20-0400 Body bwcmaa10.17 kgSmiley Morrisacher ENDLESS TRACK VEHICLE SUPERVISOR Work Phone: [phone] [place], [place] 0675510-06-2025 14:20-0400 Diastolic blood uyzjgmip53 mm[Hg]Smiley Alexandraacher ENDLESS TRACK VEHICLE SUPERVISOR Work Phone: [phone])[address] [place], [place] 0675510-06-2025 14:20-0400 Heart rate96 /Ervin Urrutiarbacher ENDLESS TRACK VEHICLE SUPERVISOR Work Phone: [phone] [place], [place] 0675510-06-2025 14:20-0400 SaO2% (BldA) [Mass fraction]98 %Smiley Urrutiaparthacher ENDLESS TRACK VEHICLE SUPERVISOR Work Phone: [phone] [place], [place] [address]646310-06-2025 14:20-0400 Systolic blood bikridop564 mm[Hg]Smiley Alexandraacher ENDLESS TRACK VEHICLE SUPERVISOR Work Phone: 1([phone] [place], [place] 7646310-03-2025 07:00-0400 Body lrfwpy236.72 cmSmiley Urrutiarbacher ENDLESS TRACK VEHICLE SUPERVISOR Work Phone: [phone] [place], [place] 0675510-03-2025 07:00-0400 Body .26 kgSmiley Urrutiarbacher ENDLESS TRACK VEHICLE SUPERVISOR Work Phone: [phone])[address] [place], [place] 0675509-22-2025 15:32-0400 Body wuxnjs703.99 cmSmiley Urrutiarbacher ENDLESS TRACK VEHICLE SUPERVISOR Work Phone: [phone])[address] [place], [place] 0675509-22-2025 15:32-0400 Body mass index (BMI) [Ratio]30.4 kg/m1ZqdwuhhrSmiley Urrutiarbacher ENDLESS TRACK VEHICLE SUPERVISOR Work Phone: [phone])[address] [place], [place] 0675509-22-2025 15:32-0400 Body skllyxlmfoe46.5 [degF]Smiley Jessica ENDLESS TRACK VEHICLE SUPERVISOR Work Phone: [phone] [place], [place] 0675509-22-2025 15:32-0400 Body emibvq75.07 kgSmiley Urrutiarbacher ENDLESS TRACK VEHICLE SUPERVISOR Work Phone: [phone])[address] [place], [place] 0675509-22-2025 15:32-0400 Diastolic blood rlinjdmn48 mm[Hg]Smiley Urrutiacaleb ENDLESS TRACK VEHICLE SUPERVISOR Work Phone: [phone])[address] [place], [place] 0675509-22-2025 15:32-0400 Heart rate73 /minSmiley Urrutiaparthacher ENDLESS TRACK VEHICLE SUPERVISOR Work Phone: [phone] [place], [place] 0675509-22-2025 15:32-0400 SaO2% (BldA) [Mass fraction]98 %Smiley Jessica ENDLESS TRACK VEHICLE SUPERVISOR Work Phone: [phone] [place], [place] 0675509-22-2025 15:32-0400 Systolic blood mm[Hg]Smiley Pratimar ENDLESS TRACK VEHICLE SUPERVISOR Work Phone: [phone] [place], [place] 0675508-26-2025 14:55-0400 Body ovqsfa580.99 cmSmiley Urrutiarbacher ENDLESS TRACK VEHICLE SUPERVISOR Work Phone: [facility]08-26-2025 14:55-0400 Body mass index (BMI) [Ratio]30.4 kg/b0HztgsolbSmiley Lopez ENDLESS TRACK VEHICLE SUPERVISOR Work Phone: [facility]08-26-2025 14:55-0400 Body hylolcurfmz59.4 [degF]Smiley Jessica ENDLESS TRACK VEHICLE SUPERVISOR Work Phone: [phone]08-26-2025 14:55-0400 Body .3 kgSmiley Lopez ENDLESS TRACK VEHICLE SUPERVISOR Work Phone: 1(498)704-[address] [place], [place] 7646308-26-2025 14:55-0400 Diastolic blood arzglmqf47 mm[Hg]Smiley Urrutiacaleb ENDLESS TRACK VEHICLE SUPERVISOR Work Phone: [phone]08-26-2025 14:55-0400 Heart rate71 /Ervin Urrutiaparthkaylynenriqueta ENDLESS TRACK VEHICLE SUPERVISOR Work Phone: [phone]08-26-2025 14:55-0400 SaO2% (BldA) [Mass fraction]98 %Smiley Urrutiacaleb ENDLESS TRACK VEHICLE SUPERVISOR Work Phone: [phone]08-26-2025 14:55-0400 Systolic blood bdnpnmjy024 mm[Hg]Smiley Urrutiacaleb ENDLESS TRACK VEHICLE SUPERVISOR Work Phone: [phone]04-22-2025 15:26-0400 Body zygyzt350.99 cmBlanchard Valley Health System04-22-2025 15:26-0400Body mass index (BMI) [Ratio]28.4 kg/c1FnkgbottzBlanchard Valley Health System04-22-2025 15:26-0400Body avcdgtzdzqc97.4 [degF][facility]04-22-2025 15:26-0400Body .18 kgBlanchard Valley Health System04-22-2025 15:26-0400Diastolic blood kcogsvqz17 mm[Hg][facility] 08-03-2024 15:26-0400Heart rate76 /[facility] 08-03-2024 15:26-2265VmD1% (BldA) [Mass fraction]98 %[facility]04-22-2025 15:26-0400Systolic blood kfxihaks355 mm[Hg][facility]03-25-2025 14:53-0400Body ffcats207.99 cmBlanchard Valley Health System03-25-2025 14:53-0400Body mass index (BMI) [Ratio]28.9 kg/m2 [facility]03-25-2025 14:53-0400Body qufabylrjnj50.2 [degF][facility]03-25-2025 14:53-0400Body uvgpis33.54 kg [facility]03-25-2025 14:53-0400Diastolic blood qnlabqfu99 mm[Hg][facility]03-25-2025 14:53-0400Heart rate78 /min [facility]03-25-2025 14:53-3579JaM2% (BldA) [Mass fraction]99 %[facility]03-25-2025 14:53-0400Systolic blood mm[Hg][facility]08-02-2024 10:58-0400 Body xknuut185.99 cmBlanchard Valley Health System08-02-2024 10:58-0400Body mass index (BMI) [Ratio]29.6 kg/l6PznldzjxjBlanchard Valley Health System08-02-2024 10:58-0400Body .81 kgBlanchard Valley Health System08-02-2024 10:58-0400Diastolic blood fhsjjyxz20 mm[Hg][facility] 11-14-2023 10:58-0400Heart rate77 /minBlanchard Valley Health System 11-14-2023 10:58-9186NlW6% (BldA) [Mass fraction]98 %[facility]08-02-2024 10:58-0400Systolic blood amipztze49 mm[Hg][facility]05-21-2024 14:48-0400Body eghzmq261.99 Villa Lopez Work Phone: [facility]05-21-2024 14:48-0400 Body mass index (BMI) [Ratio]30.5 kg/m2NEVA Morrisacher Work Phone: [phone]05-21-2024 14:48-0400 Body puyvcy20.53 kgNEVA Morrisacher Work Phone: [phone]05-21-2024 14:48-0400 Diastolic blood fblxrqyz15 mm[Hg]NEVA Morrisacher Work Phone: 1(353)652-[address] [place], [place] 7646305-21-2024 14:48-0400 Heart rate70 /minAPRShreya Morrisacher Work Phone: 1([phone] [place], [place] 7646305-21-2024 14:48-0400 SaO2% (BldA) [Mass fraction]98 %ENDLESS TRACK VEHICLE SUPERVISORShreya Morrisacher Work Phone: [phone]05-21-2024 14:48-0400 Systolic blood gbwvdapp289 mm[Hg]NEVA Morrisacher Work Phone: [phone]12-26-2023 09:30-0500 Body pqvkdy769.99 cmGildardoagnesmarciano Alexandraacheenriqueta Other [employer] Other 12-26-2023 09:30-0500Body mass index (BMI) [Ratio] 29.51 kg/g1Hibnzjdv Renanrbacher Other [employer] Other 12-26-2023 09:30-0500Body .36 kgGildardoagnesmarciano Renanrbacher Other [employer] Other 12-26-2023 09:30-0500Diastolic blood lwyzofdc50 mm[Hg] Smiley Morrisacher Other [employer] Other 12-26-2023 09:30-0500Respiratory rate17 /minGildardojericho Lopez Other [employer] Other 12-26-2023 09:30-8289YsY4% (BldA) [Mass fraction]99 % Smiley Jessica Other [employer] Other 12-26-2023 09:30-0500Systolic blood nfzcyjnm557 mm[Hg] Smiley Jessica Other [employer] Other 12-08-2022 15:00-0500Body inpdik983.99 cmAalize Hawk Other [employer] Other 12-08-2022 15:00-0500Body mass index (BMI) [Ratio] 29.22 kg/z2GssojTammie Hawk Other [employer] Other 12-08-2022 15:00-0500Body .4 [degF]Tammie Hawk Other [employer] Other 12-08-2022 15:00-0500Body .45 kgTammie Hawk Other [employer] Other 12-08-2022 15:00-0500Respiratory rate18 /minTammie Hawk Other [employer] Other 12-08-2022 15:00-7260WyE5% (BldA) [Mass fraction]98 % Tammie Hawk Other [employer] Other 08-01-2022 17:15-0400Diastolic blood jmsxwzoh59 mm[Hg] Jaqui Salehg DO Work Phone: [employer] SystemsRobina [id number] 17:15-0400Heart rate74 /minCarmen Cliff Salehg DO Work Phone: [employer] [employer] [facility] HOSPITALRobina PQZLWB94-04-8147 17:15-0400 Respiratory rate16 /minCarmen Cliff Salehg DO Work Phone: [employer] [facility] HOSPITALeDeriv TechnologiesUOZAQU93-11-5700 17:15-8341BlI7% (BldA) [Mass fraction]97 %Jaqui Arango DO Work Phone: [employer] [facility]OS[facility]ITALeDeriv TechnologiesPRTWUX72-01-7098 17:15-0400Systolic blood nadcyhwi211 mm[Hg]Jaqui Salehg DO Work Phone: [employer] [facility]OSPITALeDeriv TechnologiesPKEHSE39-72-6034 14:15-0400Body ibcyiztslvi35.1 [degF]Jaqui Arango DO Work Phone: [employer] [facility]ITALeDeriv TechnologiesTJQUQU66-56-8165 10:01-0400Body ctecor013 cmCarmen Cliff Arango DO Work Phone: [employer] [facility]ITALeDeriv TechnologiesSRPUQB19-86-6453 10:01-0400Body mass index (BMI) [Ratio]29.43 kg/o5XcdyumJaqui Salehg DO Work Phone: [employer] [facility]ITALeDeriv TechnologiesYRDSCY58-84-2927 10:01-0400Body bpecyn00.09 kgCarrubens Salehg DO Work Phone: [employer]05-24-2021 12:20-0400Body zfyldw056.99 [employer] Fitnessclifton springs hospital & clinicBillMyParents 05-24-2021 12:20-0400Body mass index (BMI) [Ratio]30.49 kg/h4Cvgdc Interactive Fitnessclifton springs hospital & clinicBillMyParents 05-24-2021 12:20-0400Body surface area Derived from formula2.11 l9Juwhb [employer] 05-24-2021 12:20-0400Body cdoepl10.31 kgWong [employer] 05-24-2021 12:20-0400Diastolic blood rmpgdalu16 mm[Hg] Wong [employer] 05-24-2021 12:20-0400Heart rate72 /minWong [employer] 05-24-2021 12:20-0400Systolic blood wzrksuks665 mm[Hg] WongFeedlooks Encounters Encounter DateEncounter TypeCare ProviderFacilityStart: 61-79-4810ysvaiotbsmpapito HERNANDEZFacility:[facility] Hospitaltart: 02-10-2025 End: 78-96-5530fhfcwgxyexPtjfmuodPaco Lopez APRN Work Phone: [phone]-Aynrtfqln Health CardiologyStart: 02-10-2025 End: 68-98-5422Mqjzivx encounter Kike Bright MDFormerly [facility] Work Phone: Start: 01-25-2025 End: 51-31-4101woclnfmelaVDQGE JOHANNES VORSTERFacility:[facility] Hospitaltart: 01-19-2025 End: 22-76-9478Alsbiyubp department patient visitCONYCOMPA Alexandre [facility] Hospitaltart: 01-17-2025 End: 99-98-8718elnbnynyjjKisnjfgiPaco Lopez APRN Work Phone: [facility] Work Phone: Start: 01-17-2025 End: 24-57-3504Wpkrteu encounter procedureSmiley Lopez APRN [facility] Work Phone: Start: 01-14-2025 End: 92-24-6608Sqgwdom encounter procedureSmiley Lopez APRN [employer] [place] Work Phone: Start: 01-14-2025 End: 51-34-8267ycbybssncmKxakenlsPaco Lopez APRN Work Phone: [facility] Work Phone: Start: 01-03-2025 End: 99-65-1628wdtvczgxdlXowmcdjq Rohrbacher ENDLESS TRACK VEHICLE SUPERVISOR Work Phone: [facility] Work Phone: Start: 01-03-2025 End: 78-60-4690Uyyyxab encounter procedureGildardoagnesmarciano Jessica HOOKS [facility] Work Phone: Start: 19-30-0463Drg-patient / Non-[facility] Work Phone: Start: 12-26-2024 End: 22-52-0372Bvhhzywdz department patient visitEmanate Health/Inter-community Hospitaltart: 12-07-2024 End: 07-44-5164coxxloduyjFjsynnsg Pratimaenriqueta HOOKS Work Phone: [facility] Work Phone: Start: 12-07-2024 End: 02-25-2421Auraghw encounter procedureSmiley Lopez APRN [facility] Work Phone: Start: 08-03-2024 End: 02-99-7892gqbwcsabiqTlqyxpstzKettering Health [facility] Work Phone: Start: 08-03-2024 End: 37-08-9091Wmjvbbv encounter procedurePerlita Physician [facility] Work Phone: Start: 94-19-3717Mrp-patient / Non-visitFirelands Physician [facility] Work Phone: Start: 02-61-1303Pbfucwl encounter statusEast [facility] Regional Hospitaltart: 07-06-2024 End: 51-66-4991rixsjzodriNncwqxucgKettering Health [facility] Work Phone: Start: 07-06-2024 End: 55-67-7155Ezgawroet for general adult medical examination without abnormal findingsEast Ohio Regional Hospitaltart: 07-06-2024 End: 13-03-9075Enorqfm encounter procedureNov[facility] Phys[facility] GroupNew[facility] Work Phone: Start: 11-14-2023 End: 07-43-2389naelzcwpfuBjbrsjekcKettering Health [facility] Work Phone: Start: 11-14-2023 End: 26-47-1667Kcijuov encounter procedureNov[facility] Health [facility] Physician GroupNewark Hospital Work Phone: Start: 09-02-2023 End: 77-47-1033vkykqxqdlhFOTT Jennifer Rohrbacher Work Phone: [facility] Work Phone: Start: 09-02-2023 End: 80-97-4813Bedtyjx encounter procedureNEVA Lopez Work Phone: [facility] Physician [facility] Work Phone: Start: 41-90-0976Qbs-patient / Non-visitAPRShreya Lopez Work Phone: [facility] Physician [facility] Professional [facility] Work Phone: Start: 06-17-2023 End: 32-65-4696Gtdzeuz encounter procedureNEVA Lopez Work Phone: [facility] [address] Work Phone: Start: 78-63-5889Edt-patient / Non-visitAPRShreya Lopez Work Phone: [facility] Physician [facility] Work Phone: Start: 04-10-2023 End: 68-58-2649combndxurfEylxqmfl Rohrbacher Other [facility] [employer] Other Start: 80-69-6376Ifloasfsr encounterSmiley AndujarCastle Rock Hospital District - [facility] Rivertart: 04-08-2023 End: 51-62-7000kfgvixaaurNfngcwaz Rohrbacher Other [facility] [employer] Other Start: 71-03-3381Sicimh outpatient new 30 minutes Smiley AlexandrakaylynCastle Rock Hospital District - [facility] Rivertart: 03-21-2022 End: 85-06-6331lyleumxdggZfrpf Keller Other [facility] [employer] Other Start: 84-91-0647Dvohtv outpatient visit 25 minutes [facility]ie [facility] ClydeStart: 11-12-2021 End: 94-19-5998vqsxfafewzHOKMKLBreanna Solomon [facility] HospitalStart: 11-12-2021 End: 11-90-2769Kicurdjxyj hospital visit by physicianJaqui Arango DO Work Phone: mthz ORComment on above:Post-op pain (Primary Dx); Pelvic congestionStart: 07-03-2021 End: 98-89-2843lgrwcopbelILIEGCharleen Black [facility] HospitalStart: 12-05-2020 End: 98-04-9219rcpvogecilYXIXRMariama Tapia [facility] HospitalStart: 12-05-2020 End: 19-17-7713Gagoxnwbmj hospital visit by physicianSr House DO Work Phone: mthz LaboratoryStart: 11-29-2020 End: 55-62-6033ruwrvcandbTSNFA MICHELLE SMITHMercy [facility] Start: 10-05-2020 End: 48-04-3757Jnlawogoxq hospital visit by physicianSr House DO Work Phone: mthz LaboratoryStart: 44-44-4973Sxcihb outpatient new 60 minutesWong Cade Other bvma OfficeStart: 43-57-0031Yszzbu ServicesDhruvliam Jama Cade Other bvma OfficeStart: 08-25-2020 End: 78-68-9958Ofvczfzgbc hospital visit by physicianSr House DO Work Phone: mthz LaboratoryComment on above:Complex cyst of left ovaryStart: 08-24-2020 End: 20-25-4116Snyvxbhrnz hospital visit by physicianMarg[facility]ville [facility] Ultrasound [facility] UltrasoundComment on above:Irregular mensesStart: 08-10-2020 End: 43-74-6422Sykijbayfy hospital visit by physicianSr House DO Work Phone: mthz LaboratoryComment on above:Thyroid disorder Procedures DateProcedureProcedure DetailPerforming ClinicianStart: 96-82-3449XRA of head Smiley Lopez APRN Work Phone: Start: 44-39-6523Akaif count hemoglobinCarmen F Cliff Arango DO Work Phone: Start: 79-60-4993Cgfgu test visual color cmprsn methsJoseph Baiera ENDLESS TRACK VEHICLE SUPERVISOR - CRNAStart: 99-84-7747Hdxiziqvzak observation [Identifier] in Cervix by Cyto stainCarmen Cliff Arango DO Work Phone: Start: 62-27-9810Jlssj of thyroxine Opal Cade MD Work Phone: Start: 22-57-7236Fafkz of thyroxine Opal Cade MD Work Phone: Start: 87-64-8633Gmubam cur meds by becka CadeStart: 66-88-2859Lewxyap aminotransferase measurementWong Cade Start: 30-00-7094Lhovgqicejr mean corpuscular volume determinationWong CadeStart: 86-21-0823Jlawnoveabt sedimentation rate, non-automatedLeroy SchroederStart: 62-99-4702Zlpdfnm stimulating hormone measurementLeroy Cade Start: 35-40-9484Hbsfygo stimulating immunoglobulins measurementLeroy Cade Start: 75-44-0274Egbjzghkk measurementLeroy SchroStart: 97-12-8418Qeb- iodothyronine measurement, totalLeroy SchroStart: 49-45-0118Jkhdchrmjhukrwtm antigen ceaSusan Rachel Wei ENDLESS TRACK VEHICLE SUPERVISOR - CNM Work Phone: Start: 69-52-1166Hbmtqbbqqqc tumor antigen quantitative ca 125Susan Rachel Wei ENDLESS TRACK VEHICLE SUPERVISOR - CNM Work Phone: Start: 14-86-2746Vx transvaginalSusan Rachel Wei ENDLESS TRACK VEHICLE SUPERVISOR - CNM Work Phone: Start: 25-41-2593Vdnvn of thyroid stimulating hormone tshSusan Rachel Wei ENDLESS TRACK VEHICLE SUPERVISOR - CNM Work Phone: Plan of Treatment DateCare ActivityDetailAuthorStart: 29-72-3220Fnuzosiuy for malignant neoplasm of cervixLIFEPOINT HOSPITALSStart: 22-58-8982KlkulvrhsEast Ohio Regional Hospitaltart: 02-49-8135Cwnuylh referralC[facility] Clinic [facility] Work Phone: Start: 75-14-1442Ehcnmss referralC[facility] Clinic Eucl[facility] Work Phone: Start: 74-39-6918Zbaylmasa for malignant neoplasm of cervixPap smearBON CLEVELAND CLINICStart: 08-20-2022 End: 39-29-2024Tlzpobe encounter lfhopunqb66/09/2023 Office Visit Obstetrics and Gynecology Narda Wei APRN - [place] [address] [place] [address] [facility] OBSTETRICS & GYNECOLOGY Part [facility]tart: 12-18-2021 End: 14-81-7194Dzhnpav encounter rlnwifzud54/06/2022 Office Visit Obstetrics and Gynecology Jaqui Osuna, DO [address] [place] [address] [facility] OBSTETRICS & GYNECOLOGY Part [facility] HospitalStart: 98-27-5976Uosdrmelr vaccinationFlu vaccine (#1)[facility] HOSPITALSStart: 11-21-2021 End: 65-47-3666Cwxgpge encounter nynmdlcls05/10/2022 Office Visit Obstetrics and Gynecology Julia Briseno PA-C [address] [place] [address] [facility] OBSTETRICS & GYNECOLOGY Part [facility]: 11-12-2021 End: 71-58-6861Qsga total hysterect 250 gm/< w/rmvl tube/ovaryHYSTERECTOMY VAGINAL LAPAROSCOPIC ROBOTIC ASSISTED Pelvic congestion 11/12/2021 11:45 AM EDT [facility]tart: 61-05-5259Ahehldu stimulating hormone measurementTS testingMorrow County Hospital Work Phone: start: 16-84-8962Sktgtfw stimulating hormone measurementTS testingMorrow County Hospital Work Phone: start: 24-43-8643Dpseohsvel MonitoringDepression MonitoringLIFEPOINT HOSPITALSStart: 90-54-4185Bzqvb of thyroid stimulating hormone tshTSHBTru [employer] Start: 39-04-6373Sxvyl of thyroxine dboylG7Cbbhjmufg [employer] Start: 03-01-2021 End: 97-87-1953Livdjut encounter xwtquakrb43/18/2021 Office Visit Obstetrics and Gynecology Narda Wei, ENDLESS TRACK VEHICLE SUPERVISOR - CNM [address] [place] [address] [facility] OBSTETRICS & GYNECOLOGYStart: 10-26-1921Ezqeiorgf vaccinationMorrow County Hospital Work Phone: start: 46-56-8161Fqite of thyroid stimulating hormone tshTSHBlanuniversity hospitals geauga medical centerrd [employer] [facility] Start: 69-57-6525Sydne of thyroxine xocewP5Klxzlyywf [employer] [facility] Start: 11-29-2020 End: 15-70-3383Isgndse encounter xuxqbfrfy40/18/2021 Office Visit Obstetrics and Gynecology Narda Wei APRN - CNM [address] [place], [place] [id number] [facility] OBSTETRICS & GYNECOLOGYStart: 11-29-2020 End: 12-28-4034Pveqegdkfhea / ancillary services vhovoodxoo72/18/2021 Ancillary Procedure [facility] and GynecologyCH[facility] & GYNECOLOGYStart: 19-28-8245Mygqw of thyroid stimulating hormone [facility] [employer] [facility] Start: 10-34-7427Apqqo of thyroxine yceagO0Dqqauluht[address] [place] [address] [employer] [facility] Start: 08-29-2020 End: 93-33-9109Oxxffel encounter fghuzyzuc29/18/2021 Office Visit Obstetrics and Gynecology Narda Wei APRN - CNM [address] [place], [place] [id number] [facility] OBSTETRICS & GYNECOLOGYStart: 75-07-5687Ioleb of thyroid stimulating hormone tshTSH [place] [employer] [facility] Start: 29-10-6558Kbuwu of thyroxine unyxjD9Ipflbypen [employer] [facility] Start: 94-06-3679Ddkfe of triiodothyronine t3 total tt3 T3 totalPetoskeyHorse Collaborative [facility] Start: 96-87-9909Mhama count complete automatedCBC & PLATELET COUNT; AUTOMATEDPetoskeyHorse Collaborative [facility] Start: 38-13-7823Xeprjrwgzszfr rate rbc non-automated SEDRATEPetoskeyHorse Collaborative [facility] Start: 06-58-2657Tuhkrgq stimulating immune globulins tsiTSI (thyroid stimulating immunoglobulin)[employer] Start: 76-32-4288Yfvziqbpqqx alanine amino alt sgptSGPT (ALT)[employer] Start: 08-24-2020 End: 59-94-4738Dnibnyc encounter udwjsxbnh43/13/2021 Appointment [facility] UltrasoundStart: 89-62-3290Xqhuebqd screenDiabetes screenBON [facility] GILBERTPreo [facility]ITALStart: 91-88-2274Hypoqhpsg for malignant neoplasm of cervix Cervical cancer [facility] Phone: start: 12-01-4957AIjC/Tdap/Td vaccine (1 - Tdap) DTaP/Tdap/Td vaccine (1 - Tdap)[facility] RGM GroupStart: 12-30-1999 Hepatitis C screeningHepatitis C screenBON [facility] GILBERTPreo [facility]ITALStart: 1997 COVID-19 Vaccine (1)COVID-19 Vaccine (1)[facility] Phone: start: 18-05-6103AZE screeningHIV screenBON [facility] GILBERTmediaBunker [facility] HOSPITALOGSystems [facility]ITALStart: 89-72-4331IHSCW-19 Vaccine (1)COVID-19 Vaccine (1)[facility] Phone: start: 02-34-3929Uphkqjvce vaccine (1 of 2 - 2-dose childhood series)Varicella vaccine (1 of 2 - 2-dose childhood series)[facility] [employer]) [facility]ITALStart: 63-45-0782NLPUH-19 Vaccine (#1)COVID-19 Vaccine (#1)[facility] RGM GroupStart: 73-43-7991Umlfemmcd C screeningHepatitis C screen moh[facility] Phone: comprehensive metabolic 2000 panel - Serum or Plasma [facility] End: 76-36-5609MLZBWZRR PACU OXYGEN THERAPY PROTOCOLInitiate PACU Oxygen Therapy Protocol Respiratory Care Routine Continuous until discontinued starting 11/12/2021 RGM GroupComment on above:Continuous until discontinued starting 11/12/2021MR Unspecified body [facility] Oxygen therapy [Minimum Data Set]Initiate Oxygen Therapy Protocol Respiratory Care Routine As Needed until discontinued starting 11/12/2021 [employer] Work Phone: comment on above:As Needed until discontinued starting 11/12/2021[address] [facility] Work Phone: Surgical PathologySurgical Pathology Lab Routine Pelvic congestion Release Upon Ordering for 1 Occurrences starting 11/12/2021 [facility] - GIL[facility]ERTCystinosis [facility] Work Phone: Comment on above:Release Upon Ordering for 1 Occurrences starting 11/12/2021 End: 43-33-8636Ektdhrb Stimulating ImmunoglobulinThyroid Stimulating Immunoglobulin Lab Routine Once for 1 Occurrences starting 08/25/2020 until 08/12[facility] [place] Work Phone: comment on above:Once for 1 Occurrences starting 08/25/2020 until 08/25/2020Thyroid Stimulating ImmunoglobulinThyroid Stimulating Immunoglobulin Lab Routine 08/25/2020 12:01 PM [facility]University [facility] [place] Work Phone: [facility] Payers DatePayer CategoryPayerPolicy [id number] of Defense ( and others)[id number] of Defense ( and others)[id number] Health Insurance [id number] [id number] 2..[id number] [id number] 2..[id number] [id number] [id number] of Defense ( and others) [id number] [id number] [id number] [id number] 2..840.1.607678.3.579.2.531 Social History DateTypeDetailFacilityStart: 08-10-2020 End: 98-28-2183Tgwazzd smoking status NHISNever smokermohchi Phone: start: 08-10-2020 End: 07-47-6349Yaiexuz use and exposureNever usedWaluziStart: 08-10-2020 End: 44-68-3022Oukbmrp intakeEx-drinker (finding)[employer] Work Phone: start: 17-12-5514Gno Assigned At BirthNot on replaced by [facility] ansonmohchi Phone: start: 11-02-2021 End: 01-14-8591Qdekszko to SARS-CoV-2 (event)Not Peoples HospitalSihua TechnologyStart: 48-24-4316TzqpgygFqodhulamreBounces Start: 37-82-3082NueshthiRodqprdhhreBounces Sex Assigned At BirthSex Assigned At [facility] [employer] Other Start: 54-52-0181Sao [facility] At [facility] Andersontart: 07-06-2024 End: 46-10-7058YncEhfisr (finding)[facility] Clinical Notes 11-12-2021 to 02-21-2025 Note Date & GbsxHbthUkghyetl92-95-2240 NoteHNO ID: [id number] Author: TACOS BARRIOS RT(R) Service: Radiology Author Type: Technologist Type: Progress Notes Filed: 02/21/2025 16:42 Note Text: Radiology Service Progress Note PATIENT NAME: Cristela Sanchez DATE OF SERVICE: February 21, 2025 TIME: 4:41 PM PATIENT IDENTITY VERIFICATION COMPLETED USING TWO (2) IDENTIFIERS: Name and Date of confirmed by patient verbally. FALL SCREENING: Has the patient had 2 falls in the last year or 1 fall with injury or currently using an Ambulatory Assistive Device (Walker, Cane, Wheelchair, Crutches, etc.)? No PATIENT GENDER DATA: Assigned female at . status: : No status: NO. PATIENT RELEVANT IMPLANT DATA REVIEWED: Yes PATIENT PRESENTS WITH AN IMPLANTABLE OR ATTACHED SERVICE WORKER HELPER: No RADIOLOGY DEPARTMENT: MR; Exam(s) Completed: Spine: Cervical spine, Thoracic spine, Lumbar spine, and CSF Leak. Anesthesia: No. Aromatherapy Administered: No PERIPHERAL IV DATA: Not applicable SIGNED BY: RT Joaquina(Enriqueta) February 21, 2025 4:41 [facility]10-14-2025 NoteHNO ID: [id number] Author: DAVID HERNANDEZ MD Service: ? Author Type: Physician Type: Progress Notes Filed: 01/25/2025 13:45 Note Text: Seen via VV with permission with Dalton I have communicated my name and active licensure. The patient's identity and physical location were verified at the time of this visit. Either the patient or their legal inside sales representative has been informed of the risks and benefits of -- and alternatives to -- treatment through a remote evaluation and consents to proceed with the evaluation remotely. Opinion re Mohinder CC About a month of CROWDER precipitated initially by some exertion Dizziness Head pressure, worst in the back Lightheadedness > pre-syncopal events Word finding difficulty Visual confusion Off balance, can't walk Wakes up feeling dizzy and nauseous MRI Brain reviewed together It shows 6 mm tonsillar descent with crowding at foramen magnum AP WE discussed the findings She has a symptomatic Chiari We discussed the implications She will likely require decompression I described some conservative measures I res MRI CTL spine to r/o any co-morbidities They understand and agree and we will FU VV for possible surgical I spent 45 mins reviewing the chart and discussing a plan of care David Hernandez, [facility]10-06-2025 Hospital Discharge instructionsAmbulatory Orders* Referral to Neurosurgery Time Frame: 01/17/25, Location: None Selected [facility] Work Phone: 1(492) 730-743808-26-2025 Evaluation note* Diagnosis Onset Date Resolution Status Admit Date Plantar wart of right foot acuteAugust 2024 2:52pmAcquired hypothyroidismacuteSeptember 2024 3:21pmAnxietyacuteSeptember 2024 3:21pmDepressionacuteSeptember 2024 3:21pmDizzinessacuteSeptember 2024 3:21pmMigrainesacuteSeptember 2024 3:21pmNear syncopeacuteSeptember 2024 3:21pmNew onset headacheacute January 03, 2025 3:21pmVision changesacuteSeptember 2024 3:21pm [facility] Work Phone: 1(533) 660-380408-26-2025 Evaluation note* Diagnosis Onset Date Resolution Status Admit Date Plantar wart of right foot acuteAugust 2024 2:52pmAcquired hypothyroidismacuteSeptember 2024 3:21pmAnxietyacuteSeptember 2024 3:21pmDepressionacuteSeptember 2024 3:21pmDizzinessacuteSeptember 2024 3:21pmMigrainesacuteSeptember 2024 3:21pmNear syncopeacuteSeptember 2024 3:21pmNew onset headacheacute January 03, 2025 3:21pmVision changesacuteSeptember 2024 3:21pmChiari malformation type IacuteOctober 2024 1:21pmNear syncopeacuteOctober 2024 1:21pmNew onset headacheacuteOctober 2024 1:21pmVision changesacute January 17, 2025 1:21pm [facility] Work Phone: 1(263) 418-805908-26-2025 Evaluation note* Diagnosis Onset Date Resolution Status Admit Date Plantar wart of right foot acuteAugust 2024 2:52pmAcquired hypothyroidismacuteSeptember 2024 3:21pmAnxietyacuteSeptember 2024 3:21pmDepressionacuteSeptember 2024 3:21pmDizzinessacuteSeptember 2024 3:21pmMigrainesacuteSeptember 2024 3:21pmNear syncopeacuteSeptember 2024 3:21pmVision changesacute January 03, 2025 3:21pm [facility] Work Phone: 1(215) 410-422308-26-2025 Hospital Discharge instructionsAmbulatory Orders* Referral to Podiatry Time Frame: 12/07/24, Location: None Selected [facility] Work Phone: 1(537) 290-314603-25-2025 Evaluation note* Diagnosis Onset Date Resolution Status Admit Date Acquired hypothyroidism acuteMarch 2024 2:50pmAnxietyacuteMarch 2024 2:50pmDepressionacute July 06, 2024 2:50pmPalpitationsacuteMarch 2024 2:50pmWellness examinationacuteMarch 2024 2:50pm [facility] Work Phone: 1(119) 662-658103-25-2025 Evaluation note* Diagnosis Onset Date Resolution Status Admit Date Acquired hypothyroidism acuteMarch 2024 2:50pmAnxietyacuteMarch 2024 2:50pmDepressionacute July 06, 2024 2:50pmPalpitationsacuteMarch 2024 2:50pmWellness examinationacuteMar 2024 2:50pm [facility] Work Phone: 1(689) 190-112612-28-2023 Evaluation note* Encounter Date Diagnosis Assessment Notes Treatment Notes Treatment Clinical Notes Mar, Acquired hypothyroidism (ICD-10 - E03.9) [employer] Other 12-26-2023 Evaluation note* Encounter Date Diagnosis Assessment Notes Treatment Notes Treatment Clinical Notes Mar, Acquired hypothyroidism (ICD-10 - E03.9) Due for labs. Denies any unexplained weight change or hair loss. Does report fatigue and cold tolerance. Patient to continue with above medication and we will continue to monitor through routine blood work Mar,hronic fatigue (ICD-10 - R53.82)Pt stated that she has not had labwork performed in a while. Explained to pt that conditions such as thryoid, anemia or vitamin deficiencies can cause fatigue, dizziness, or palpitations. Strongly encouraged patient to get adequate sleep at night. May use Tylenol/ibuprofen as directed for any general discomfort or fevers. Pt verbalized understanding and agreement with tx plan. Mar,Multiple joint pain (ICD-10 - M25.50)Will work up for autoimmune disorder due to symptoms and family histroy of autoimmune disorder, labs ordered. Would also like referral due to family history and symptoms Mar,Shortness of breath (ICD-10 - R06.02) Mar,Screening for lipid disorders (ICD-10 - Z13.220)will call lab and diagnostic results and recommendations Mar,alpitations (ICD-10 - R00.2)Pt stated that she has not had labwork performed in a while. Explained to pt that conditions such as thryoid, anemia or vitamin deficiencies can cause fatigue, dizziness, or palpitations. Strongly enc ouraged patient to get adequate sleep at night. May use Tylenol/ibuprofen as directed for any general discomfort or fevers. Pt verbalized understanding and agreement with tx plan. Mar,izziness (ICD-10 - R42) Mar,Family history of lupus erythematosus (ICD-10 - Z84.0) [employer] Other 12-08-2022 Evaluation note* Encounter Date Diagnosis Assessment Notes Treatment Notes Treatment Clinical Notes Mar, Cough (ICD-10 - R05.9) Mar,OVID-19 (ICD-10 - U07.1) COVID PCR test performed [...] treatment plan. Patient left in stable condition [employer] Other 08-01-2022 History of Present illness Narrative* [...] instructions. Verbalizes understanding. documented [facility] [employer] Phone: 1(438) 595-589508-01-2022 Hospital Discharge instructions* Discharge Instructions* Julia Briseno [...] Velazquez in [address] Lindo -- [place] office [phone] [place] office [phone] documented in this encounterB[facility] [employer] Phone: evaluation note* Diagnosis Thyroid disorder Unspecified disorder of thyroid documented in this encounter [facility] Phone: evaluation note* Diagnosis Complex cyst of left ovary documented in this encounter [facility] Phone: evaluation note* Diagnosis Irregular menses Irregular menstrual cycle documented in this encounter [facility] Phone: evaluation note* Diagnosis Post-op pain- Primary Other acute postoperative pain Pelvic congestion Pelvic congestion syndrome documented in this encounter [employer] Phone: evaluation noteNo assessment information available [facility] Work Phone: Evaluation note* Diagnosis Onset Date Resolution Status Contusion of left foot acuteAbdominal painacuteDiarrheaacute [facility] Work Phone: Evaluation note* Diagnosis Onset Date Resolution Status Admit Date Plantar wart of right foot acuteAugust 2024 2:52pm [facility] Work Phone: History general Narrative - Reported* Type Description Date Medical History hypothyroidism Surgical Historyblood clot on brain from [id number] Historysee above surg [employer] Other Hismfdm general Narrative - Reported* Type Description Date Medical History hypothyroidism Surgical Historyblood clot on brain from [id number] Egkpeahgmgsjesdlqwz8475 Hospitalization Historysee above surg hx [employer] Other Rerzwf for referral (narrative)No reason for referral information availableC[facility] Work Phone: Red[employer] for visit Narrative* Auth/CertSpecialty Diagnoses / ProceduresReferred By ContactReferred To Contact Diagnoses Pelvic congestion PELVIC CONGESTION SYNDROME, MENORRHAGIA, DYSMENORRHEA Procedures [place] LAPAROSCOPY W TOT HYSTERECTUTERUS <=250 GRAM W TUBE/OVARY HYSTERECTOMY VAGINAL LAPAROSCOPIC ROBOTIC ASSISTED- POSSIBLE BSO, POSSIBLE LAP COLPOPEXY Jaqui Osuna F, DO [address] [place] [address] [employer] [address] [place] [address] Referral IDStatusReasonStart DateExpiration DateVisits RequestedVisits [id number] [employer] Phone: Reason for Referral StatusReasonSpecialtyDiagnoses / ProceduresReferred By ContactReferred To ContactPending ReviewRadiology Diagnoses Irregular menses Procedures US NON OB TRANSVAGINAL Narda Wei, ENDLESS TRACK VEHICLE SUPERVISOR - CNM [address] [place] [address] Reason evaluate Diagnosis 1 Chronic fatigue (R53 .82) Diagnosis 2 Multiple joint pain (M25.50) Diagnosis 3 Shortness of breath (R06.02) Referral Organization [facility] linamita Referring Provider First Name Smiley Referring Provider Last Name Alexandraacher Referring Provider Specialty Nurse Pract itioner Referred Organization Unknown Facility Referred Provider Gonsalo Carpenter Referred Provider Specialty Rheumatology Referral Priority Routine Advance Directives No Advanced Directives Records FoundLatest Code Status on File Code StatusDate ActivatedDate InactivatedCommentsFull Code11/12/2021 9:46 AM Advance Directive Response Recorded Date/ Time Advance Directives No May 6:25pm Summary Purpose Family History No Family History Records Found Relationship Condition Age at Onset Recorded Date/T maribell Not Specified Unknown Relationship Condition Age at Onset Recorded Date/T maribell mother Unknown Relationship Condition Age at Onset Recorded Date/T maribell mother Unknown LupusUnknownHeart diseaseUnknown Chief Complaint and Reason for Visit Chief Complaint Admit Date Meds/Anxiety July 06, 2024 2:5 0pm 4 week f/u August 03, 2024 3:2 3pm Reason for Visit Admit Date Acquired hypothyroidism July 06, 2024 2:50pm Anxiety July 06, 2024 2:5 0pm Depression July 06, 2024 2:5 0pm Palpitations July 06, 2024 2:5 0pm Wellness examination July 06, 2024 2: 50pm Chief Complaint oa/fm/meds Amb Documentation Foot pain Chief Complaint Foot pain stomach ache//diarrhea for over a weekReason for VisitContusion of left foot Abdominal pain Diarrhea Chief Complaint Admit Date Meds/Anxiety July 06, 2024 2:5 0pm Chief Complaint Admit Date planters wart on foot December 07, 2024 2:52pm Reason for Visit Admit Date Plantar wart of right foot December 07, 2024 2:52pm Chief Complaint Admit Date planters wart on foot December 07, 2024 2:52pm Amb Documentation December 28, 2024 10:36am ER f/u Wellness January 03, 2025 3:21pm H53.9 R42 G43.909 R55 R51.9 January 14, 2025 7:33am Reason for Visit Admit Date Plantar wart of right foot December 07, 2024 2:52pm Acquired hypothyroidism January 03, 2025 3:21pm Anxiety January 03, 2025 3:21pm Depression January 03, 2025 3:21pm Dizziness January 03, 2025 3:21pm Migraines January 03, 2025 3:21pm Near syncope January 03, 2025 3:21pm New onset headache January 03, 2025 3:21pm Vision changes January 03, 2025 3:21pm Chief Complaint Admit Date planters wart on foot December 07, 2024 2:52pm Amb Documentation December 28, 2024 10:36am ER f/u Wellness January 03, 2025 3:21pm H53.9 R42 G43.909 R55 R51.9 January 14, 2025 7:33am Discuss MRI January 17, 2025 1: 21pm Reason for Visit Admit Date Plantar wart of right foot December 07, 2024 2:52pm Acquired hypothyroidism January 03, 2025 3:21pm Anxiety January 03, 2025 3:21pm Depression January 03, 2025 3:21pm Dizziness January 03, 2025 3:21pm Migraines January 03, 2025 3:21pm Near syncope January 03, 2025 3:21pm New onset headache January 03, 2025 3:21pm Vision changes January 03, 2025 3:21pm Chiari malformation type I January 17, 2025 1:21pm Near syncope January 17, 2025 1: 21pm New onset headache January 17, 2025 1: 21pm Vision changes January 17, 2025 1: 21pm Chief Complaint Admit Date planters wart on foot December 07, 2024 2:52pm Amb Documentation December 28, 2024 10:36am ER f/u Wellness January 03, 2025 3:21pm Reason for Visit Admit Date Plantar wart of right foot December 07, 2024 2:52pm Acquired hypothyroidism January 03, 2025 3:21pm Anxiety January 03, 2025 3:21pm Depression January 03, 2025 3:21pm Dizziness January 03, 2025 3:21pm Migraines January 03, 2025 3:21pm Near syncope January 03, 2025 3:21pm Vision changes January 03, 2025 3:21pm Chief Complaint Admit Date plantjose wart on foot December 07, 2024 2:52pm Amb Documentation December 28, 2024 10:36am ER f/u Wellness January 03, 2025 3:21pm H53.9 R42 G43.909 R55 R51.9 January 14, 2025 7:33am Discuss MRI January 17, 2025 1: 21pm syncope and collapse February 10, 2025 1:51pm Additional Source Comments Reason for Visit (unrecogniz ed section and content) StatusReasonSpecialtyDiagnoses / ProceduresReferred By ContactReferred To ContactPending ReviewRadiology Diagnoses Irregular menses Procedures US NON OB TRANSVAGINAL Narda Wei, ENDLESS TRACK VEHICLE SUPERVISOR - CNM [address] [place] [address] [address] [place] [address] Ordered Prescriptions (unrec ognized section and content) PrescriptionSigDispensedRefillsStart DateEnd Date oxyCODONE-acetaminophen (PERCOCET) 5-325 MG per tablet Indications:Post-op painTake 1 tablet by mouth every 6 hours as needed for Pain for up to 3 days. Intended supply: 3 days. Take lowest dose possible to manage pain 12 tablet ketorolac (TORADOL) 10 MG tablet Take 1 tablet by mouth every 6 hours as needed for Pain 20 tablet HYDROcodone-acetaminophen (NORCO) 5-325 MG per tablet Indications:Post-op painTake 1 tablet by mouth every 6 hours as needed for Pain for up to 5 days. Intended supply: 5 days. Take lowest dose possible to manage pain 10 tablet Scheduled Active and Recently Administ ered Medications (unrecognized section and content) Medication Order/31/[id number]/04/2021 acetaminophen (TYLENOL) tablet 650 mg (COMPLETED) 650 mg, Oral, ONCE, 1 dose, On Fri11/12/21 at 1015, Maximum dose of acetaminophen is 4000 mg from all sources in 24 hours., Pre-op (day of surgery) * 1016 (Given - Provider: Karin Byrd RN) ceFAZolin (ANCEF) 2000 mg in dextrose 5 % 100 mL IVPB (COMPLETED) 2,000 mg, IntraVENous, COLORIST FORMULATOR TO O.R., 1 dose, On Fri11/12/21 at 1015, Antimicrobial Indications: Surgical Prophylaxis, Administer within 1 hour prior to incision., Pre-op (day of surgery) * 1143 (New Bag - Provider: Ewa Wei, RN) * 1213 (Due: Stopped - Provider: Ewa Wei RN) dimenhyDRINATE (DRAMAMINE) tablet 50 mg (COMPLETED) 50 mg, Oral, ONCE, 1 dose, On Fri11/12/21 at 1015, Pre-op (day of surgery) * 1016 (Given - Provider: Karin Byrd RN) enoxaparin (LOVENOX) injection 40 mg (COMPLETED) 40 mg, SubCUTAneous, ONCE, 1 dose, On Fri11/12/21 at 1015, Indication of Use: Prophylaxis-DVT/PE, Pre-op (day of surgery) * 1109 (Given - Provider: Steffanie Zayas RN) HYDROcodone-acetaminophen (NORCO) 5-325 MG per tablet 2 tablet (COMPLETED) 2 tablet, Oral, ONCE, 1 dose, On Fri11/12/21 at 1500, Maximum dose of acetaminophen is 4000 mg from all sources in 24 hours., PACU & Post-op * 1444 (Given - Provider: Mariela Stringer, AMY) phenazopyridine (PYRIDIUM) tablet 200 mg (COMPLETED) 200 mg, Oral, ONCE, 1 dose, On Fri11/12/21 at 1500, Take with food. May cause discoloration of urine. * 1445 (Given - Provider: Mariela Stringer, AMY) sodium chloride flush 0.9 % injection 5-40 mL 5-40 mL, IntraVENous, EVERY 12 HOURS SCHEDULED (2 times per day), First dose on Fri11/12/21 at 1015,Until Discontinued, For Line Patency: Peripheral IV = [...] Midline or Central Line = 20 mL/lumen * 1015 (Due) * 2100 (Due) sodium chloride flush 0.9 % injection 5-40 mL 5-40 mL, IntraVENous, EVERY 12 HOURS SCHEDULED (2 times per day), First dose on Fri11/12/21 at 2100,Until Discontinued, For Line Patency: Peripheral IV = [...] Central Line = 20 mL/lumen, PACU only * 2100 (Due) Medication Order///04/2021 lactated ringers infusion IntraVENous, at 100 mL/hr, CONTINUOUS, Starting on Fri11/12/21 at 1015, Pre-op (day of surgery) * 1016 (New Bag - Provider: Karin Byrd RN) * 1145 (NoRateChange - Provider: NEVA Sanchez CRNA) * 1219 (New Bag - Provider: NEVA Sanchez CRNA) * 1329 (Anesthesia Volume Adjustment - Provider: NEVA Sanchez CRNA) * 1720 (Stopped - Provider: Tonja Rico RN) Medication Order///04/2021 0.9 % sodium chloride infusion IntraVENous, at 5-250 mL/hr, PRN, if patient receiving piggyback infusions and maintenance fluids are not ordered OR KVO fluids to protect IV site / prevent frequent line interruptions/ long duration, Starting on Fri11/12/21 at 0946, For piggyback infusion, administer at same rate as piggyback for atotal of 25 mL. Enter 25 mL into [...] administer at same rate as piggyback for atotal of 25 mL. Enter 25 mL into [...] unless specifically approved by provider., PACU only * 1349 (Given - Provider: Mariela Stringer RN) * 1402 (Given - Provider: Mariela Stringer RN) ondansetron (ZOFRAN) injection 4 mg 4 mg, IntraVENous, EVERY 6 HOURS PRN, Starting on Fri11/12/21 at 1344, Until Discontinued, Nausea, Vomiting * 1353 (Given - Provider: Mariela Stringer, AMY) opium-belladonna (B&O SUPPRETTES) 16.2-60 MG suppository (CANCELED) mg dosing is based on opium component, PRN, Starting on Fri11/12/21 at 1204, Until Fri11/12/21 at 1327, Intra-op * 1204 (Given - Provider: Ewa Wei RN) oxyCODONE (ROXICODONE) immediate release tablet 5 mg (COMPLETED) 5 mg, Oral, ONCE PRN, 1 dose, Starting on Fri11/12/21 at 1615, Until Fri11/12/21 at 1621, Pain Moderate (4-6), Pain Severe (7-10) * 1621 (Given - Provider: Tonja Rico RN) sodium chloride flush 0.9 % injection 5-40 mL 5-40 mL, IntraVENous, PRN, Starting on Fri11/12/21 at 0946, Until Discontinued, Line Care, After every IV line use, For Line Patency: Peripheral IV = 5 mL; Midline or Central Line = 10 mL/lumen. If following IV push medication, administer flush at same rate as the IV push. Flush volume is determinedby type of infusion therapy being given. For [...] as the IV push. Flush volume is determinedby type of infusion therapy being given. For non-viscous solutions use: Peripheral IV = 5 mL Midline or Central Line = 10 mL/lumen For viscous solutions (i.e. blood components, parenteral nutrition, contrast media, or after obtaining blood sample) use: Peripheral IV = 10 mL Midline or Central Line = 20 mL/lumen, PACU only Medication Order11/10///04/2021 opium-belladonna (B&O SUPPRETTES) 16.2-60 MG suppository mg dosing is based on opium component, 1 dose, Starting on Fri11/12/21 at 1140, Until Fri11/12/21 at 2344, Ewa Wei: cabinet override, Ewa Wei: cabinet override * 1145 (Due) Care Teams (unrecognized sec tion and content) Team MemberRelationshipSpecialtyStart DateEnd Date Toni, Sr Simeon P, DO [address] [place] [address] [facility] Team Status: Active Member Role Status Dates Smiley Lopez APRN ENVIRONMENTAL DEPARTMENT MANAGER-C Primary Care Provider Active Team Status: Active Member Role Status Dates Smiley Lopze APRN ENVIRONMENTAL DEPARTMENT MANAGER-C Primary Care Provider, Attending Provider Active Start: June 11, 2023 Team Status: Inactive Member Role Status Dates Smiley Lopez APRN ENVIRONMENTAL DEPARTMENT MANAGER-C Primary Care Provider Active Start: June 17, 2023 End: June 17, 2023Keri Gold ProviderActiveStart: June 17, 2023 End: June 17, 2023 Team Status: Active Member Role Status Dates Smiley Lopez APRN ENVIRONMENTAL DEPARTMENT MANAGER-C Primary Care Provider Active Start: July 16, 2023 Carla Patton ProviderActiveStart: July 16, 2023 Team Status: Inactive Member Role Status Dates Smiley Lopez APRN ENVIRONMENTAL DEPARTMENT MANAGER-C Primary Care Provider, Attending Provider Active Start: September 02, 2023 End: September 02, 2023 Team Status: Inactive Member Role Status Dates Smiley Lopez APRN ENVIRONMENTAL DEPARTMENT MANAGER-C Primary Care Provider, Attending Provider Active Start: November 14, 2023 End: November 14, 2023 Team Status: Inactive Member Role Status Dates Smiley Lopez APRN ENVIRONMENTAL DEPARTMENT MANAGER-C Primary Care Provider, Attending Provider Active Start: July 06, 2024 End: July 06, 2024 Team Status: Active Member Role Status Dates Smiley Lopez APRN ENVIRONMENTAL DEPARTMENT MANAGER-C Primary Care Provider, Attending Provider Active Start: July 24, 2024 Team Status: Inactive Member Role Status Dates Smiley Lopez APRN ENVIRONMENTAL DEPARTMENT MANAGER-C Primary Care Provider, Attending Provider Active Start: August 03, 2024 End: August 03, 2024 Team Status: Inactive Member Role Status Dates Smiley Lopez APRN ENVIRONMENTAL DEPARTMENT MANAGER-C Primary Care Provider Active Start: December 07, 2024 End: December 07, 2024Smiley Lopez [employer]ESS [employer]HICLE SUPERVISOR ENVIRONMENTAL DEPARTMENT MANAGER-CAttending ProviderActive Start: December 07, 2024 End: December 07, 2024 Team Status: Active Member Role Status Dates Smiley Lopez ENDLESS TR[employer] VEHICLE SUPERVISOR ENVIRONMENTAL DEPARTMENT MANAGER-C Primary Care Provider Active Start: December 132024 Pham Rivers CMAAttending ProviderActiveStart: December 28, 2024 Team Status: Inactive Member Role Status Dates Smiley Lopez APRN ENVIRONMENTAL DEPARTMENT MANAGER-C Primary Care Provider Active Start: December 142024 End: January 03, 2025Smiley Lopez ENDLESS [employer] VEHICLE SUPERVISOR ENVIRONMENTAL DEPARTMENT MANAGER-CAttending ProviderActive Start: January 03, 2025 End: January 03, 2025 Team Status: Inactive Member Role Status Dates Smiley Lopez APRN ENVIRONMENTAL DEPARTMENT MANAGER-C Primary Care Provider Active Start: January 14, 2025 End: January 14, 2025Smiley Lopez [employer]LESS [employer] VEHICLE SUPERVISOR ENVIRONMENTAL DEPARTMENT MANAGER-CAttending ProviderActive Start: January 14, 2025 End: January 14, 2025 Team Status: Inactive Member Role Status Dates Smiley Lopez APRN ENVIRONMENTAL DEPARTMENT MANAGER-C Primary Care Provider Active Start: January 17, 2025 End: January 17, 2025Smiley Lopez , ENDLESS TR[employer] VEHICLE SUPERVISOR ENVIRONMENTAL DEPARTMENT MANAGER-CAttending ProviderActive Start: January 17, 2025 End: January 17, 2025 Team Status: Active Member Role/Relationship Status Dates Smiley Lopez ENDLESS [employer] VEHICLE SUPERVISOR ENVIRONMENTAL DEPARTMENT MANAGER-C Primary Care Provider Active Team Status: Inactive Member Role/Relationship Status Dates Smiley Lopez APRN ENVIRONMENTAL DEPARTMENT MANAGER-C Primary Care Provider Active Start: December 07, 2024 End: December 07, 2024Smiley Lopez [employer] VEHICLE SUPERVISOR ENVIRONMENTAL DEPARTMENT MANAGER-CAttending ProviderActive Start: December 07, 2024 End: December 07, 2024 Team Status: Active Member Role/Relationship Status Dates Smiley Lopez APRN ENVIRONMENTAL DEPARTMENT MANAGER-C Primary Care Provider Active Start: December 132024 Aguilar Ma ProviderActiveStart: December 28, 2024 Team Status: Inactive Member Role/Relationship Status Dates Smiley Lopez APRN ENVIRONMENTAL DEPARTMENT MANAGER-C Primary Care Provider Active Start: December 142024 End: January 03, 2025Smiley Lopez APRN ENVIRONMENTAL DEPARTMENT MANAGER-CAttending ProviderActive Start: January 03, 2025 End: January 03, 2025 Team Status: Inactive Member Role/Relationship Status Dates Smiley Lopez APRN ENVIRONMENTAL DEPARTMENT MANAGER-C Primary Care Provider Active Start: January 14, 2025 End: January 14, 2025Smiley Lopez [employer] VEHICLE SUPERVISOR ENVIRONMENTAL DEPARTMENT MANAGER-CAttending ProviderActive Start: January 14, 2025 End: January 14, 2025 Team Status: Inactive Member Role/Relationship Status Dates Smiley Lopez APRN ENVIRONMENTAL DEPARTMENT MANAGER-C Primary Care Provider Active Start: January 17, 2025 End: January 17, 2025Smiley Lopez APRN ENVIRONMENTAL DEPARTMENT MANAGER-CAttending ProviderActive Start: January 17, 2025 End: January 17, 2025 Team Status: Inactive Member Role/Relationship Status Dates Smiley Lopez APRN ENVIRONMENTAL DEPARTMENT MANAGER-C Primary Care Provider Active Start: January End: February 10, 2025Smiley Lopez APRN ENVIRONMENTAL DEPARTMENT MANAGER-CReferring ProviderActive Start: February 10, 2025 End: February 10, 2025Cassandra Bright , MDAttending ProviderActiveStart: February 10, 2025 End: February 10, 2025 Team Status: Active Member Role/Relationship Status Dates Smiley Lopez APRN ENVIRONMENTAL DEPARTMENT MANAGER-C Primary Care Provider Active Start: January Cassandra Bright , MDAttending ProviderActiveStart: February 10, 2025 Team Status: Inactive Member Role/Relationship Status Dates Smiley Lopez APRN ENVIRONMENTAL DEPARTMENT MANAGER-C Primary Care Provider Active Start: January End: February 10, 2025Cassandra Bright , MDAttending ProviderActiveStart: February 10, 2025 End: February 10, 2025 INFORMATION SOURCE (unrecogn ized section and content) DATE CREATED AUTHOR 11/15/2021 [facility] DATE CREATED AUTHOR AUTHOR'S ORGANIZ ATION 11/21/2021 [facility] DATE CREATED AUTHOR AUTHOR'S ORGANIZ ATION 01/21/2025 [facility] DATE CREATED AUTHOR AUTHOR'S ORGANIZ ATION 02/18/2025 [facility] DATE CREATED AUTHOR AUTHOR'S ORGANIZ ATION 02/22/2025 [facility] Goals (unrecognized section and content) Goals [...] BE BASED ON THE PRIMARY CLINICAL RECORDS. [facility] [employer] provides no warranty or guarantee of the accuracy or completeness of information in this document.
[2025-04-12 11:18] LABS: Hematocrit 38.9 % (36.0-48.0); Hemoglobin 12.9 g/dL (12.0-16.0); Immature Granulocytes Abs Auto 0.01 10^3/uL (0.00-0.03); Immature Granulocytes Pct Auto 0.2 % (0.0-0.5); Lymphocytes Absolute Auto 1.0 10^3/uL (1.2-3.8); Mean Corpuscular HGB Conc 33.2 g/dL (29.9-35.2); Mean Corpuscular Hemoglobin 31.2 pg (26.7-34.0); Mean Corpuscular Volume 94.0 fL (81.0-99.0); Platelet Count 203 10^3/uL (150-450); Red Blood Count 4.14 10^6/uL (4.20-5.40); White Blood Count 4.8 10^3/uL (4.0-11.0)
[2025-04-12 11:38] LABS: Alanine Aminotransferase 35 U/L (14-59); Albumin Globulin Ratio 0.9; Albumin Level 3.5 g/dL (3.4-5.0); Alkaline Phosphatase 56 U/L (46-116); Anion Gap 10.4; Aspartate Amino Transferase 20 U/L (15-37); Blood Urea Nitrogen 6.0 mg/dL (7.0-18.0); Calcium 8.6 mg/dL (8.5-10.1); Carbon Dioxide 28.6 mmol/L (21.0-32.0); Chloride 105 mmol/L (98-107); Estimated GFR (African America >60 (>=60 mL/min/1.73m^2); Estimated GFR (Non-African Ame >60 (>=60 mL/min/1.73m^2); Globulin 3.7 g/dL; Glucose 91 mg/dL (74-106); Potassium 4.0 mmol/L (3.5-5.1); Sodium 140 mmol/L (136-145); Total Protein 7.2 g/dL (6.4-8.2)
== END 2025-04-12 10:55 | disposition home or self-care (01) ==
PROVIDERS: PCP Nurse Practitioner Family; Visit Provider Registered Nurse
DX: M15.0 Primary generalized (osteo)arthritis (principal); M79.7 Fibromyalgia; Z79.899 Other long term (current) drug therapy
CPT/HCPCS: 36415; 80053; 85025